=== PATIENT | female | born 1995 | race Caucasian/White ===

== ENCOUNTER 2019-08-11 09:48 | Emergency (ER) | payer MEDICAID, SELFPAY ==
[2019-08-11 09:54] VITALS: BP 123/72; PULSE 85; RESP 18; TEMP 36.6; O2SAT 99; BMI 23.6
--- NOTE | 2019-08-11 10:27 | ED_ITS ---
Entered by Zehra Wright, acting as scribe for Aristeo Mauricio DO HPI - SOB/Dyspnea General: Chief Complaint: Shortness of Breath/Dyspnea Stated Complaint: sob cold symptoms Time Seen by Provider: 08/11/19 10:02 Source: patient Mode of arrival: ambulatory Limitations: no limitations History of Present Illness: HPI Narrative: 24 yo f came to the er pov for sob, cough and cold. Onset was today. Pt states that she has had some chest pain due to the cough. Pt states that she has been having some sob. MD elicited complaint: shortness of breath and cough Onset (ago): day(s) (yesterday) Severity: mild Exacerbating factors: nothing Associated symptoms: Reports fever(s) and nausea; Deny abdominal pain, chest pain, orthopnea or vomiting Review of Systems Const: Reports: fever ENMT: Denies: throat pain, ear pain, nasal discharge or nasal congestion Card: Denies: chest pain or shortness of breath when lying down Resp: Reports: shortness of breath and non-productive cough; Denies: productive cough GI: Reports: nausea; Denies: abdominal pain or vomiting : Denies: flank pain, difficulty urinating, painful urination, urinary frequency or urinary urgency Skin/Breast: Denies: rash or itching PFSH ED PFSH: Statuses (acute, chronic, etc) shown below reflect problem list status as previously entered and may not be historically accurate Social History Smoking and tobacco status: current every day smoker Physical Exam Const: COMMON NORMALS: no apparent distress GENERAL APPEARANCE: cooperative and comfortable ORIENTATION/CONSCIOUSNESS: Yes awake, Yes oriented to person, Yes oriented to place and Yes oriented to time HENMT: COMMON NORMALS: normocephalic, head/scalp atraumatic, hearing grossly normal bilaterally, external ears normal, EAC's normal, TM's normal bilaterally, nasal mucous membranes and turbinates normal, moist oral mucous membranes and oropharynx normal HEAD & SCALP: normocephalic and atraumatic FACE & SINUS: sinus tenderness frontal NOSE: nasal mucous membranes and turbinates normal, mucous membranes and turbinates abnormal and nasal discharge clear EXTERNAL EAR: Yes external ears normal EXTERNAL AUDITORY CANAL: EAC's normal TYMPANIC MEMBRANE: TM's normal bilaterally Eye: COMMON NORMALS: PERRL, EOMs intact bilaterally, conjunctivae normal and no scleral icterus CONJUNCTIVA: Yes conjunctivae normal PUPIL: Yes PERRL Neck/C-Spine: COMMON NORMALS: full ROM, no lymphadenopathy, supple and no JVD Lymph: LYMPHATIC: no lymphadenopathy noted and no lymphedema noted Resp: COMMON NORMALS: normal respiratory effort, no retractions, no use of accessory muscles and clear to auscultation bilaterally AUSCULTATION: clear to auscultation bilaterally, rhonchi and wheezes throughout (mild) Cardio: COMMON NORMALS: no JVD, regular rate, regular rhythm and no murmurs RATE: regular rate RHYTHM: regular rhythm Extremity: COMMON NORMALS: normal to inspection, normal capillary refill, no clubbing, cyanosis or edema, no calf tenderness and no pedal edema Neuro: SENSORIUM/ORIENTATION: Yes oriented to person, Yes oriented to place and Yes oriented to time Skin: COMMON NORMALS: no rashes or lesions noted GENERAL SKIN EXAM: no rashes or lesions noted Course Vital Signs: Vital signs: Vital Signs Temperature 98 F 08/11/19 09:54 Pulse Rate 62 08/11/19 12:16 Respiratory Rate 16 08/11/19 12:16 Blood Pressure 116/72 08/11/19 12:16 Pulse Oximetry 100 08/11/19 12:16 MDM - SOB/Dyspnea Lab Data: Labs: Lab Results 08/11/19 08/11/19 08/11/19 Range/Units 11:10 11:15 11:46 WBC 4.6 (4.0-10.0) 10^3/ uL RBC 3.99 L (4.1-5.3) 10^6/u L Hgb 11.9 (11.5-15.3) g/dL Hct 34.9 L (37.0-47.0) % MCV 87.5 (81-99) fL MCH 29.8 (28.0-34.0) pg MCHC 34.1 (30.0-36.0) g/dL RDW 13.1 (12.1-15.1) % Plt Count 201 (130-400) 10^3/c mm MPV 11.9 H (7.4-10.4) fL Neut % (Auto) 62.1 % Lymph % (Auto) 26.3 % [place] % (Auto) 9.2 % Eos % (Auto) 1.8 % Baso % (Auto) 0.4 % Neut # (Auto) 2.8 (1.8-7.7) 10^3/u L Lymph # (Auto) 1.2 (0.8-4.8) 10^3/u L [place] # (Auto) 0.4 (0.2-0.9) 10^3/u L Eos # (Auto) 0.1 (0.0-0.8) 10^3/u L Baso # (Auto) 0.0 (0.0-0.1) 10^3/u L Nucleated RBC % (a uto) 0 % Nucleated RBCs # 0.0 /100WBC Sodium 138 (136-145) mmol/L Potassium 3.0 L (3.5-5.1) mmol/L Chloride 103 (98-107) mmol/L Carbon Dioxide 23 (22-29) mmol/L Anion Gap 15.0 (5-19) BUN 7 (6-20) mg/dL Creatinine 0.5 (0.5-0.9) mg/dL GFR Calculation 150.3 H (90-130) mL/min Glucose 100 (74-109) mg/dL Calcium 9.3 (8.6-10.0) mg/Dl Total Bilirubin 0.3 (0.15-1.2) mg/dL AST 12 (0-32) U/L ALT 8 (0-33) U/L Alkaline Phosphata se 71 (35-105) IU/L Total Protein 7.6 (6.6-8.7) g/dL Albumin 4.6 (3.5-5.2) g/dL Globulin 3.0 (1.3-4.6) g/dL Influenza Type A A g Negative (Negative) POC Influenza B Ag Negative (Negative) Imaging Data^: CXR: Radiologist's impression: [address] [address] XRay Report Signed Patient: Lexi Richmond [facility]#: [id number] : 1995Acct:[id number] Age/Sex: 24 / FADM Date: 08/11/19 Loc: ER Attending Dr: Ordering Physician: Aristeo Mauricio DO Date of Service: 08/11/19 Procedure(s): XR chest 1V portable [id number] Accession Number(s): [id number] Report Number: [id number] WS: [id number] Portable AP upright chest, 08/11/2019 Clinical Data: cough/dyspnea Comparison: PA and lateral chest, 02/13/2010. Findings: No nodules, masses or effusions are seen. The heart is normal. The pulmonary vascularity is not increased. No pneumonia or pneumothorax is seen. XR/XR chest 1V portable [id number] Impression: Negative chest. Dictated By:Ana Pierre MD Discharge Plan Discharge Patient Disposition: Home, Self-Care Clinical Impression: Asthma with exacerbation, Sinusitis, acute frontal Condition: Stable Prescriptions: New prednisone 10 mg tablets,dose pack See Rx Instructions .ROUTE .COMPLEX Qty: 21 RF: 0 cefdinir 300 mg capsule 300 mg PO BID 10 Days Qty: 20 RF: 0 albuterol sulfate 90 mcg/actuation HFA aerosol inhaler 2 inh INHALATION Q4H PRN (Reason: shortness of breath or wheezing) Qty: 18 RF: 0 No Action Aleve 220 mg Tablet 440 mg PO DAILY PRN (Reason: Pain) RF: 0 Childrens Zarbees Cough&Cold 10 ml PO BID RF: 0 Discharge Orders: Discharge Order (Routine); Ordered 08/11/19 Ordered By: Aristeo Mauricio Referrals: Kaden Rivas DO [Primary Care Provider] - Discharge Date/Time: 08/11/19 12:17 Coding Level of Care Code ED Record Searcher for Chg Fwd Exam Problem Focused The documentation recorded by the Kyle reed Stephanie Lyn, accurately reflects the service I personally performed and the decisions made by Hang stanford Curtis L, DO Aug 11, 2019 09:48
--- NOTE | 2019-08-11 10:57 | XR_ITS ---
WS: [id number] Portable AP upright chest, 08/11/2019 Clinical Data: cough/dyspnea Comparison: PA and lateral chest, 02/13/2010. Findings: No nodules, masses or effusions are seen. The heart is normal. The pulmonary vascularity is not increased. No pneumonia or pneumothorax is seen. XR/XR chest 1V portable [id number] Impression: Negative chest.
[2019-08-11] MEDS: sodium chloride 0.9% 1,000 ML 999 ML IV (11:13)
[2019-08-11 11:22] LABS: Basophils % 0.4 %; Eosinophils # 0.1 10^3/uL (0.0-0.8); Eosinophils % 1.8 %; Hematocrit 34.9 % (37.0-47.0); Hemoglobin 11.9 g/dL (11.5-15.3); Lymphocytes # 1.2 10^3/uL (0.8-4.8); Lymphocytes % 26.3 %; Mean Corpuscular HGB Conc 34.1 g/dL (30.0-36.0); Mean Corpuscular Hemoglobin 29.8 pg (28.0-34.0); Mean Corpuscular Volume 87.5 fL (81-99); Mean Platelet Volume 11.9 fL (7.4-10.4); Monocytes # 0.4 10^3/uL (0.2-0.9); Monocytes % 9.2 %; Neutrophils # 2.8 10^3/uL (1.8-7.7); Neutrophils % 62.1 %; Nucleated Red Blood Cells % 0 %; Platelet Count 201 10^3/cmm (130-400); Red Blood Count 3.99 10^6/uL (4.1-5.3); Red Cell Distribution Width 13.1 % (12.1-15.1); White Blood Count 4.6 10^3/uL (4.0-10.0)
--- NOTE | 2019-08-11 11:34 | PC.NURSE ---
gave pt phone to use, pt resting in bed comfortably and states no further needs at this time.
[2019-08-11 11:52] LABS: Influenza A by IFA Negative (Negative); Influenza B by IFA Negative (Negative)
[2019-08-11 12:14] LABS: Alanine Aminotransferase 8 U/L (0-33); Albumin Level 4.6 g/dL (3.5-5.2); Alkaline Phosphatase 71 IU/L (35-105); Aspartate Amino Transferase 12 U/L (0-32); Blood Urea Nitrogen 7 mg/dL (6-20); Calcium 9.3 mg/Dl (8.6-10.0); Carbon Dioxide 23 mmol/L (22-29); Chloride 103 mmol/L (98-107); Glomerular Filtration Rate 150.3 mL/min (90-130); Glucose 100 mg/dL (74-109); Sodium 138 mmol/L (136-145); Total Bilirubin 0.3 mg/dL (0.15-1.2); Total Protein 7.6 g/dL (6.6-8.7)
[2019-08-11 12:16] VITALS: BP 116/72; PULSE 62; RESP 16; O2SAT 100
== END 2019-08-11 12:17 | disposition home or self-care (01) ==
PROVIDERS: Emergency Provider Family Medicine; Family Provider Electrodiagnostic Medicine; PCP Electrodiagnostic Medicine
DX: J45.901 Unspecified asthma with (acute) exacerbation (principal); J01.10 Acute frontal sinusitis, unspecified; F17.210 Nicotine dependence, cigarettes, uncomplicated
CPT/HCPCS: 36415; 71045; 80053; 85025; 87804; 96360; 96374; 99281; J2930; J7030

== ENCOUNTER 2019-09-09 08:56 | Emergency (ER) | payer MEDICAID, SELFPAY ==
[2019-09-09 09:02] VITALS: BP 99/74; PULSE 89; RESP 16; TEMP 36.8; O2SAT 100; BMI 24.3
--- NOTE | 2019-09-09 09:04 | W.ED.SKABFB ---
HPI - Skin/Abscess/Foreign Bdy General: Chief complaint: Skin/Abscess/Foreign Body Stated complaint: BLISTERS ALL OVER Time Seen by Provider: 09/09/19 09:03 History of Present Illness: HPI narrative: Patient comes in today for complaints of multiple dry crusting lesions spreading over her body. Patient reports sleeping with her boyfriend who also had similar lesions. Patient appears well. Patient appears in no acute distress. Review of Systems General: Reports: 10 or more systems reviewed and unremarkable except in HPI and below Skin/Breast: Reports: new lesion PFSH ED PFSH: Statuses (acute, chronic, etc) shown below reflect problem list status as previously entered and may not be historically accurate Social History Smoking and tobacco status: current every day smoker Physical Exam Const: COMMON NORMALS: no apparent distress and oriented x3 GENERAL APPEARANCE: cooperative HENMT: COMMON NORMALS: normocephalic, external ears normal, EAC's normal, TM's normal bilaterally and external nose normal HEAD & SCALP: normal to inspection and normocephalic FACE & SINUS: normal facial exam NOSE: external nose normal GENERAL EAR: hearing not grossly impaired EXTERNAL EAR: Yes external ears normal EXTERNAL AUDITORY CANAL: EAC's normal TYMPANIC MEMBRANE: TM's normal bilaterally MOUTH: oral and palatal mucosa normal THROAT: posterior oropharynx normal Eye: COMMON NORMALS: PERRL and EOMs intact bilaterally PUPIL: Yes PERRL Neck/C-Spine: COMMON NORMALS: full ROM and no lymphadenopathy Lymph: LYMPHATIC: no lymphedema noted Chest: COMMONS NORMALS: inspection of chest normal and palpation of chest normal Resp: COMMON NORMALS: normal respiratory effort and clear to auscultation bilaterally AUSCULTATION: clear to auscultation bilaterally Cardio: COMMON NORMALS: regular rate and regular rhythm RATE: regular rate RHYTHM: regular rhythm GI: COMMON NORMALS: normal to inspection, nondistended, normoactive bowel sounds and non-tender : COMMON NORMALS: Yes no CVA tenderness BLADDER/KIDNEY EXAM: Yes no CVA tenderness Back/Pelvis: COMMON NORMALS: no CVA tenderness and thoracic and lumbar spine normal to inspection Extremity: COMMON NORMALS: normal to inspection GENERAL: No edema Neuro: COMMON NORMALS: oriented x3, moves all extremities and no focal motor deficits Psych: COMMON NORMALS: mental status grossly normal and cooperative Skin: LESIONS: lesion noted (multiple dry crusting lesion spread across body) Course Vital Signs: Vital signs: Vital Signs Temperature 98.2 F 09/09/19 09:02 Pulse Rate 89 09/09/19 09:02 Respiratory Rate 16 09/09/19 09:02 Blood Pressure 99/74 09/09/19 09:02 Pulse Oximetry 100 09/09/19 09:02 MDM - Skin/Abscess/Foreign Bdy MDM Narrative: Medical decision making narrative: Patient presents with multiple skin lesions and concern for staph. On exam we note multiple lesions to the arms and legs face and groin area. Lesions are crusting with minimal surrounding area of erythema. Differential diagnosis includes neurodermatitis, impetigo, cellulitis, abscess. Reviewed exam with patient recommended treatment for impetigo with clindamycin and mupirocin ointment. Discussed further treatment and need for follow-up. Patient reports understanding and agreed to plan. Discharge Plan Discharge Patient Disposition: Home, Self-Care Clinical Impression: Impetigo Condition: Stable Prescriptions: New clindamycin HCl 150 mg capsule 150 mg PO TID 10 Days Qty: 30 RF: 0 mupirocin 2 % ointment 1 applic TOPICAL BID Qty: 22 RF: 1 No Action Aleve 220 mg Tablet 440 mg PO DAILY PRN (Reason: Pain) RF: 0 Childrens Zarbees Cough&Cold 10 ml PO BID RF: 0 prednisone 10 mg tablets,dose pack See Rx Instructions .ROUTE .COMPLEX Qty: 21 RF: 0 albuterol sulfate 90 mcg/actuation HFA aerosol inhaler 2 inh INHALATION Q4H PRN (Reason: shortness of breath or wheezing) Qty: 18 RF: 0 Discharge Orders: Discharge Order (Routine); Ordered 09/09/19 Ordered By: Ashok Rios Referrals: Kaden Rivas DO [Primary Care Provider] - Discharge Diet: Usual diet Discharge Activity: Resume usual activity Patient Instructions: Impetigo (ED) Activity Restrictions/Additional Instructions: Good handwashing Avoid picking at lesions Follow-up in one week as needed with primary care Return to ER for high fever, or new concerns Coding Level of Care Code ED Hr Representative for Bala Jaffe
--- NOTE | 2019-09-09 09:18 | PC.NURSE ---
Pt presents to the ER for widespread generalized lesions. Pt states the areas have been itching and burning with yellow drainage. Patient states these have been present for about a week now. Patient worries that these may be staph or herpes. States she just found out her partner has herpes 5 days ago.
== END 2019-09-09 09:24 | disposition home or self-care (01) ==
PROVIDERS: Emergency Provider Nurse Practitioner Family; Family Provider Electrodiagnostic Medicine; PCP Electrodiagnostic Medicine
DX: L01.00 Impetigo, unspecified (principal); F17.210 Nicotine dependence, cigarettes, uncomplicated
CPT/HCPCS: 99281; 99282

== ENCOUNTER 2019-10-09 14:55 | Emergency (ER) | payer MEDICAID, SELFPAY ==
[2019-10-09 15:07] VITALS: BP 108/71; PULSE 100; RESP 16; TEMP 36.6; O2SAT 99; BMI 22.8
--- NOTE | 2019-10-09 15:15 | ED_ITS ---
Entered by Bruce Durán, acting as scribe for Aristeo Mauricio DO Oct 09, 2019 14:55 HPI - Female Genitourinary General: Chief complaint: Urogenital-Female Stated complaint: THINKS SHE HAS HERPES Time Seen by Provider: 10/09/19 15:15 History of Present Illness: HPI Narrative: 24 yo female presents with a possible STD. Pt thinks that she might have herpes. Pt states that she has had an outbreak on her vagina. Pt states that she slept with her harley father and he did not tell her he had herpes. Pt states that she has never had a herpes or an outbreak before. Pt states that she has had pain, fever, body aches, vomiting and diarrhea. Pt states that she has burning with urination. Pertinent past history: STI/STD Severity: moderate Associated symptoms: Reports vaginal discharge; Deny abdominal pain, headache(s), nausea or syncope Date of Last Menstrual Period: 10/05/19 Review of Systems Const: Reports: fever, chills, body aches, change in appetite, fatigue and malaise Eyes: Denies: change in vision or blurry vision ENMT: Denies: throat pain, oral sores/lesions, dental pain, nasal discharge or nasal congestion Card: Denies: chest pain, palpitations, irregular heart rhythm, edema, syncope, shortness of breath on exertion, shortness of breath when lying down or leg pain with exertion Resp: Denies: shortness of breath, productive cough, non-productive cough or wheezing GI: Denies: abdominal pain, nausea, vomiting, vomiting blood, coffee grounds in vomit, difficulty swallowing, heartburn/indigestion, diarrhea, constipation, cramping, blood in stool or black tarry stool : Reports: painful urination, vaginal discharge and pelvic pain; Denies: flank pain, urinary frequency, urinary urgency, urinary incontinence or blood in urine Musc: Denies: neck pain, back pain, extremity pain, extremity swelling, joint pain or joint swelling Skin/Breast: Denies: rash, itching or redness Neuro: Denies: headache, numbness in extremities, weakness in extremities, changes in sensation, lack of coordination, difficulty walking, frequent falls, dizziness, vertigo or confusion Psych: Denies: anxiety, depression, loss of interest, visual hallucinations, auditory hallucinations, suicidal ideation or homicidal ideation Endo: Denies: excessive urination, excessive thirst, tired all the time or cold intolerance [place]/Lymph: Denies: easy bruising, easy bleeding, petechiae, enlarged lymph nodes or tender lymph nodes PFSH ED PFSH: Medical History (Updated 10/09/19 @ 16:31 by Aristeo Mauricio DO) Anemia Headache STD (female) UTI (urinary tract infection) Surgical History History of tubal ligation Social History Smoking and tobacco status: current every day smoker Alcohol intake: current History of recent travel: No Female Reproductive History: Date of last menstrual period: 10/05/19 Physical Exam Const: COMMON NORMALS: average body habitus, oriented x3 and alert GENERAL APPEARANCE: cooperative, comfortable, well kempt and well developed NUTRITIONAL APPEARANCE: obese ORIENTATION/CONSCIOUSNESS: Yes awake, Yes oriented to person and Yes oriented to place HENMT: COMMON NORMALS: normocephalic, head/scalp atraumatic, EAC's normal, TM's normal bilaterally, external nose normal, moist oral mucous membranes and oropharynx normal HEAD & SCALP: normocephalic and atraumatic NOSE: external nose normal EXTERNAL AUDITORY CANAL: EAC's normal TYMPANIC MEMBRANE: TM's normal bilaterally MOUTH: oral and palatal mucosa normal, lip normal and tongue normal THROAT: posterior oropharynx normal and tonsils normal Eye: COMMON NORMALS: PERRL, EOMs intact bilaterally, conjunctivae normal and no scleral icterus CONJUNCTIVA: Yes conjunctivae normal PUPIL: Yes PERRL Neck/C-Spine: COMMON NORMALS: full ROM, no lymphadenopathy, supple, no meningeal signs and thyroid normal THYROID: thyroid normal and asymmetrical Lymph: LYMPHATIC: no lymphadenopathy noted Resp: COMMON NORMALS: normal respiratory effort, no retractions, no use of accessory muscles and clear to auscultation bilaterally AUSCULTATION: clear to auscultation bilaterally Cardio: COMMON NORMALS: regular rate and regular rhythm RATE: regular rate RHYTHM: regular rhythm HEART SOUNDS: no murmurs GI: COMMON NORMALS: normal to inspection, nondistended, normoactive bowel sounds, soft to palpation and no hepatosplenomegaly PALPATION: Yes soft and Yes no hepatosplenomegaly : COMMON NORMALS: Yes no CVA tenderness BLADDER/KIDNEY EXAM: Yes no CVA tenderness EXTERNAL FEMALE EXAM: Yes other (Multiple cratered eroded lesions typical for genital herpes on the labia minora and labia majora and perineum. Most prominent one was swabbed for DNA for herpes. There is no vesicle) SPECULUM EXAM - VAGINA: Yes vaginal discharge Vaginal discharge present: other (Purulent purulent cervical discharge) SPECULUM EXAM - CERVIX: Yes cervical tenderness BIMANUAL EXAM - VAGINA & UTERUS: Yes cervical motion tenderness and Yes cervical tenderness BIMANUAL EXAM - ADNEXA, OTHER: Yes normal adnexae OB/EXTERNAL & SPECULUM: herpetic lesions Back/Pelvis: COMMON NORMALS: no CVA tenderness LUMBAR SPINE/LOWER BACK: Yes normal to inspection Extremity: COMMON NORMALS: no clubbing, cyanosis or edema, no calf tenderness and no pedal edema Neuro: COMMON NORMALS: oriented x3 SENSORIUM/ORIENTATION: Yes alert, Yes oriented to person and Yes oriented to place MENINGEAL SIGNS: Yes no meningeal signs Psych: APPEARANCE: Yes well kempt Skin: COMMON NORMALS: no rashes or lesions noted and skin turgor normal GENERAL SKIN EXAM: no rashes or lesions noted and turgor normal Course ED course: Discussed clinical findings with the exam patient. Based on her clinical exam findings I recommend that we treat for GC chlamydia for PID and will also recommend starting acyclovir pending results. Vital Signs: Vital signs: Vital Signs Temperature 98 F 10/09/19 15:07 Pulse Rate 77 10/09/19 17:28 Respiratory Rate 18 10/09/19 17:28 Blood Pressure 112/74 10/09/19 17:28 Pulse Oximetry 98 10/09/19 17:28 MDM - Female Lab Data: Labs: Lab Results 10/09/19 10/09/19 10/09/19 Range/Units 15:34 16:00 16:00 WBC 5.4 (4.0-10.0) 10^3/ uL RBC 4.27 (4.1-5.3) 10^6/u L Hgb 12.1 (11.5-15.3) g/dL Hct 37.6 (37.0-47.0) % MCV 88.1 (81-99) fL MCH 28.3 (28.0-34.0) pg MCHC 32.2 (30.0-36.0) g/dL RDW 14.1 (12.1-15.1) % Plt Count 205 (130-400) 10^3/c mm MPV 11.5 H (7.4-10.4) fL Neut % (Auto) 68.0 % Lymph % (Auto) 17.9 % [place] % (Auto) 9.2 % Eos % (Auto) 4.1 % Baso % (Auto) 0.4 % Neut # (Auto) 3.6 (1.8-7.7) 10^3/u L Lymph # (Auto) 1.0 (0.8-4.8) 10^3/u L [place] # (Auto) 0.5 (0.2-0.9) 10^3/u L Eos # (Auto) 0.2 (0.0-0.8) 10^3/u L Baso # (Auto) 0.0 (0.0-0.1) 10^3/u L Nucleated RBC % (a uto) 0 % Nucleated RBCs # 0.0 /100WBC Urine Color Yellow (Yellow) Urine Appearance Hazy A (CLEAR) Urine pH 6 (5-7) Ur Specific Gravit y 1.020 (1.005-1.030) Urine Protein Neg (Negative) Urine Glucose (UA) Norm (Normal) Urine Ketones Negative (Negative) Urine Blood Trace H (Negative) Urine Nitrate Negative (Negative) Urine Bilirubin Neg (NEGATIVE) Urine Urobilinogen Norm (Negative) mg/dL Ur Leukocyte Sherron ase Negative (Negative) Urine RBC 5-10 H (0-2) /hpf Urine WBC None (0-5) /hpf Ur Squamous Epith Cells 10-15 H (0-5) Urine Bacteria 1+ H (NONE) Urine Mucus 4+ Urine HCG, Qual Negative (Negative) Discharge Plan Discharge Patient Disposition: Home, Self-Care Clinical Impression: Acute PID (pelvic inflammatory disease), Genital herpes Condition: Stable Prescriptions: New doxycycline hyclate 100 mg capsule 100 mg PO Q12H 14 Days Qty: 28 RF: 0 Valtrex 1 gram tablet 1,000 mg PO BID 7 Days Qty: 14 RF: 0 lidocaine 5 % cream 1 applic TOPICAL QID PRN (Reason: pain) Qty: 45 RF: 0 No Action Aleve 220 mg Tablet 440 mg PO BID PRN (Reason: Pain) RF: 0 Child Multivitamins Tablet,Chewable 1 tab PO DAILY RF: 0 Discharge Orders: Discharge Order (Routine); Ordered 10/09/19 Ordered By: Aristeo Mauricio Referrals: Kaden Rivas DO [Primary Care Provider] - Discharge Diet: Usual diet Discharge Activity: Increase activity as tolerated Activity Restrictions/Additional Instructions: Follow-up with your primary care doctor on results. Discharge Date/Time: 10/09/19 17:29 Coding Level of Care Code ED Hospital Director for Chg Fwd Exam Comprehensive The documentation recorded by the Luis Armando reed Kialy, accurately reflects the service I personally performed and the decisions made by Hang stanford Curtis L, DO Oct 09, 2019 14:55
[2019-10-09 15:41] LABS: Basophils % 0.4 %; Eosinophils # 0.2 10^3/uL (0.0-0.8); Eosinophils % 4.1 %; Hematocrit 37.6 % (37.0-47.0); Hemoglobin 12.1 g/dL (11.5-15.3); Lymphocytes % 17.9 %; Mean Corpuscular HGB Conc 32.2 g/dL (30.0-36.0); Mean Corpuscular Hemoglobin 28.3 pg (28.0-34.0); Mean Corpuscular Volume 88.1 fL (81-99); Mean Platelet Volume 11.5 fL (7.4-10.4); Monocytes # 0.5 10^3/uL (0.2-0.9); Monocytes % 9.2 %; Neutrophils # 3.6 10^3/uL (1.8-7.7); Nucleated Red Blood Cells % 0 %; Platelet Count 205 10^3/cmm (130-400); Red Blood Count 4.27 10^6/uL (4.1-5.3); Red Cell Distribution Width 14.1 % (12.1-15.1); White Blood Count 5.4 10^3/uL (4.0-10.0)
[2019-10-09] MEDS: azithromycin 250 mg Tablet 1000 MG PO (16:40)
[2019-10-09 16:41] LABS: Add Urine Microscopic? YES; Bilirubin Urine Neg (NEGATIVE); Blood Urine Trace (Negative); Glucose Urine UA Norm (Normal); Ketones Urine Negative (Negative); Leukocyte Esterase Urine Negative (Negative); Nitrate Urine Negative (Negative); Protein Urine Neg (Negative); Urine Appearance Hazy (CLEAR); Urine Color Yellow (Yellow); Urobilinogen Urine Norm (Negative); pH Urine 6 (5-7)
[2019-10-09] MEDS: cefTRIAXone 250 mg SDV 500 MG IM (16:41)
[2019-10-09] MEDS: lidocaine 1% INJ 20 mL IM (16:45)
[2019-10-09 16:56] LABS: Add Urine Culture? No; Bacteria Urine 1+; Mucus Urine 4+
[2019-10-09 17:28] VITALS: BP 112/74; PULSE 77; RESP 18; O2SAT 98
--- NOTE | 2019-10-10 18:16 | PC.NURSE ---
LAB CALLED STATES UNABLE TO GET RESULTS FROM VAGINAL SWABS AND URINE TO OLD TO USE TO DO TEST
== END 2019-10-09 17:29 | disposition home or self-care (01) ==
PROVIDERS: Emergency Provider Family Medicine; Family Provider Electrodiagnostic Medicine; PCP Electrodiagnostic Medicine
DX: A60.00 Herpesviral infection of urogenital system, unspecified (principal); N73.0 Acute parametritis and pelvic cellulitis; E66.9 Obesity, unspecified; Z68.22 Body mass index [BMI] 22.0-22.9, adult; F17.200 Nicotine dependence, unspecified, uncomplicated
CPT/HCPCS: 12345; 36415; 81001; 81025; 85025; 87210; 87491; 87530; 87591; 87661; 96372; 99283; J0696; J2001; Q0144

== ENCOUNTER 2020-03-27 00:24 | Emergency (ER) | payer MEDICAID, SELFPAY ==
[2020-03-27 00:35] VITALS: BP 132/84; PULSE 103; RESP 18; TEMP 36.8; O2SAT 98; BMI 24.4
--- NOTE | 2020-03-27 00:43 | ED_ITS ---
HPI - Dental/Oral General: Chief complaint: Dental/Oral Stated complaint: mouth pain/ swelling/ white spots Time Seen by Provider: 03/27/20 00:42 History of Present Illness: HPI Narrative: Patient is a 24-year-old female who comes to the ED with dental pain. Pain started approximately 3 days ago. Dental pain is located on tooth #32. Patient says it starting to cause lower jaw pain and some facial swelling as well. She rates pain a 9 out of 10. Patient says she has a dentist she is going to call tomorrow morning. Associated symptoms: Denies fever(s) or odynophagia Review of Systems Const: Denies: fever(s), chills or fatigue Eyes: Denies: change in vision or eye discomfort ENMT: Reports: dental pain; Denies: throat pain, odynophagia, nasal discharge or nasal congestion Card: Denies: chest pain, palpitations, edema, swelling of feet/ankles, dyspnea on exertion or orthopnea Resp: Denies: dyspnea, productive cough or non-productive cough GI: Denies: abdominal pain, nausea, vomiting, diarrhea, constipation or hematochezia : Denies: flank pain, dysuria or hematuria Musc: Denies: neck pain, back pain or extremity swelling Skin/Breast: Denies: rash or new lesions Neuro: Denies: headache(s), numbness in extremities or weakness in extremities PFSH ED PFSH: Medical History Anemia Headache STD (female) UTI (urinary tract infection) Surgical History History of tubal ligation Family History Denies family history of Anesthesia complication Bleeding disorder Social History Smoking and tobacco status: current every day smoker Alcohol intake: current History of recent travel: No Female Reproductive History: Date of last menstrual period: 10/05/19 Physical Exam Const: COMMON NORMALS: no acute distress, patient oriented x3, healthy appearing and alert GENERAL APPEARANCE: cooperative; not comfortable (Patient appears to be in some pain due to dental issue.) HENMT: COMMON NORMALS: normocephalic HEAD & SCALP: normocephalic MOUTH: Normal oral and palatal mucosa present TEETH & GINGIVA: Yes abnormal tooth and associated gingiva (Tooth #32 cavity and there is some surrounding gingival edema.) and Yes caries (Tooth #32) THROAT: posterior oropharynx normal and uvula midline Eye: COMMON NORMALS: Equal, round and reactive pupils present PUPIL: Yes Equal, round and reactive pupils present Neck/C-Spine: COMMON NORMALS: supple GENERAL: Yes normal visual inspection Resp: COMMON NORMALS: normal respiratory effort, No retractions, No use of accessory muscles and clear to auscultation bilaterally AUSCULTATION: clear to auscultation bilaterally Cardio: COMMON NORMALS: regular rate, regular rhythm, S1 normal heart sound present, S2 normal heart sound present, No gallops present (Cardio), No clicks present (Cardio), No murmurs present (Cardio) and Peripheral pulses 2+ throughout RATE: regular rate RHYTHM: regular rhythm HEART SOUNDS: S1 normal heart sound present and S2 normal heart sound present PERIPHERAL PULSES: Peripheral pulses 2+ throughout GI: COMMON NORMALS: Normal to inspection, nondistended, normoactive bowel sounds present, Soft to palpation, non-tender and no masses PALPATION: Yes Soft to palpation : COMMON NORMALS: Yes no CVA tenderness BLADDER/KIDNEY EXAM: Yes no CVA tenderness Back/Pelvis: COMMON NORMALS: no CVA tenderness Extremity: COMMON NORMALS: normal to inspection Neuro: COMMON NORMALS: patient oriented x3 and moves all extremities SENSORIUM/ORIENTATION: Yes alert Skin: COMMON NORMALS: no rashes or lesions noted GENERAL SKIN EXAM: no rashes or lesions noted and dry skin Course Vital Signs: Vital signs: Vital Signs Temperature 98.3 F 03/27/20 00:35 Pulse Rate 103 H 03/27/20 00:35 Respiratory Rate 18 03/27/20 00:35 Blood Pressure 132/84 03/27/20 00:35 Pulse Oximetry 98 03/27/20 00:35 MDM - Dental/Oral MDM Narrative: Medical decision making narrative: Patient is a 24-year-old female comes to the ED with dental pain. Physical exam showed dental caries with some gingival edema around tooth #32. Patient was given a dose of hydrocodone for pain here in the ED and also given a dose of clindamycin. Patient was discharged with a prescription for clindamycin and ibuprofen 800 mg. She was told to contact dentist tomorrow morning to set up an appointment. Patient understood and agreed with plan. Discharge Plan Discharge Patient Disposition: Home Clinical Impression: Pain due to dental caries Condition: Stable Prescriptions: New clindamycin HCl 150 mg capsule 300 mg PO QID 7 Days Qty: 56 RF: 0 ibuprofen 800 mg tablet 800 mg PO Q8H PRN (Reason: pain) Qty: 30 RF: 0 No Action Aleve 220 mg Tablet 440 mg PO BID PRN (Reason: Pain) RF: 0 Child Multivitamins Tablet,Chewable 1 tab PO DAILY RF: 0 lidocaine 5 % cream 1 applic TOPICAL QID PRN (Reason: pain) Qty: 45 RF: 0 Discharge Orders: Discharge Order (Routine); Ordered 03/27/20 Ordered By: Otto Galicia Referrals: Kaden Rivas, [Primary Care Provider] - Discharge Diet: Regular Discharge Activity: Resume usual activity Patient Instructions: Dental Caries (ED), Toothache (ED) Activity Restrictions/Additional Instructions: Call dentist tomorrow morning to set up an appointment for further evaluation. Take medications as prescribed. Return to the ER or your medical provider if condition worsens. Please read and understand discharge instructions. If any questions, please ask. Coding Level of Care Code ED Sas Statistical Programmer for Bala Fwpushpa Exam Comprehensive
[2020-03-27] MEDS: clindamycin 150 mg Capsule 300 MG PO (01:14)
[2020-03-27] MEDS: HYDROcodone-acetaminophen 7.5-325 mg Tablet 1 TAB PO (01:14)
[2020-03-27 01:28] VITALS: BP 138/82; PULSE 72; RESP 16; TEMP 36.9; O2SAT 99
== END 2020-03-27 01:29 | disposition home or self-care (01) ==
PROVIDERS: Emergency Provider Physician Assistant; PCP Electrodiagnostic Medicine
DX: K02.9 Dental caries, unspecified (principal); F17.210 Nicotine dependence, cigarettes, uncomplicated
CPT/HCPCS: 12345; 99281; 99282; 99283

== ENCOUNTER 2020-05-08 11:06 | Emergency (ER) | payer MEDICAID, SELFPAY ==
[2020-05-08 11:37] VITALS: BP 119/77; PULSE 85; RESP 18; TEMP 36.7; O2SAT 99; BMI 25.9
[2020-05-08 11:43] VITALS: RESP 18
--- NOTE | 2020-05-08 12:39 | XR_ITS ---
WS: [id number] XR sacrum coccyx min 2V 03912 REASON FOR EXAM: fall, coccyx pain FINDINGS: Normal sacrococcygeal alignment. No fracture identified. No mass or other abnormality noted. XR/XR sacrum coccyx min 2V 94427 IMPRESSION: No significant abnormality.
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
[2020-05-08] MEDS: ibuprofen 800 mg tablet PO (13:10)
[2020-05-08] MEDS: tetanus-dipt-pertussis 0.5 mL SDV IM (13:17)
== END 2020-05-08 13:37 | disposition home or self-care (01) ==
PROVIDERS: Emergency Provider Nurse Practitioner Family; PCP Electrodiagnostic Medicine
DX: M53.3 Sacrococcygeal disorders, not elsewhere classified (principal); S60.512A Abrasion of left hand, initial encounter; S60.511A Abrasion of right hand, initial encounter; F17.210 Nicotine dependence, cigarettes, uncomplicated; W03.XXXA Other fall on same level due to collision with another person, initial encounter; Z23 Encounter for immunization
CPT/HCPCS: 12345; 72220; 90471; 90715; 99282; 99283

== ENCOUNTER 2020-12-22 18:00 | Emergency (ER) | payer BC, MEDICAID, SELFPAY ==
[2020-12-22 18:30] VITALS: BP 111/77; PULSE 67; RESP 14; TEMP 36.9; O2SAT 92; BMI 25.0
[2020-12-22] MEDS: ketorolac 30 mg/mL INJ IM (19:33)
[2020-12-22] MEDS: orphenadrine 30 mg/mL Inj 2 mL 60 MG IM (19:34)
[2020-12-22 19:44] LABS: HCG Qualitative Urine. Negative (Negative)
[2020-12-22 20:08] LABS: Bilirubin Urine Neg (Negative); Blood Urine Neg (Negative); Glucose Urine UA Norm (Normal); Ketones Urine Negative (Negative); Leukocyte Esterase Urine Negative (Negative); Nitrate Urine Negative (Negative); Protein Urine Neg (Negative); Sulfosalicylic Acid Urine Negative (Negative); Urine Color Yellow (Yellow); Urobilinogen Urine 1 mg/dL (Negative); pH Urine 8 (5-7)
[2020-12-22 20:09] LABS: Add Urine Microscopic? YES
[2020-12-22 20:10] LABS: Add Urine Culture? No; Amorphous Sediment Urine 2+ /hpf; Bacteria Urine 1+ /hpf; RBC Urine 0-4 /hpf (0-2); WBC Urine 0-4 /hpf (0-5)
--- NOTE | 2020-12-22 20:29 | W.ED.BACK ---
HPI - Back Pain/Injury General: Chief Complaint: Back Pain/Injury Stated Complaint: back pain, numbness Time Seen by Provider: 12/22/20 18:44 History of Present Illness: HPI Narrative: The patient is a 25-year-old female who comes to the ER complaining of lower right back pain. Worse with movement and better with rest. She says she has pain when she tries to stand straight up. Also history of breaking her tailbone a year ago which still causes her pain. She has no injury to speak of. She did have kids visiting this weekend and was holding them on her right side which she thinks could have possibly caused this injury. She says her has felt knots in her low back and has been rubbing them out which helps with her pain. She denies weakness in the extremities, denies anesthesia, has full range of motion of extremities. No saddle anesthesia or bladder or bowel incontinence. Also denies radicular pain. MD elicited complaint: back pain Associated symptoms: Deny abdominal pain, difficulty walking, fatigue or urinary urgency Review of Systems General: Reports: 10 or more systems reviewed and unremarkable except in HPI and below Const: Denies: fatigue Eyes: Denies: change in vision, blurry vision or eye redness ENMT: Denies: throat pain, swelling of lips/tongue, ear or mastoid pain or nasal congestion Card: Denies: chest pain, palpitations, irregular heart rhythm, edema, dyspnea on exertion or orthopnea Resp: Denies: dyspnea, productive cough or non-productive cough GI: Denies: abdominal pain, diarrhea or GI cramping : Denies: flank pain, difficulty voiding, urinary frequency or urinary urgency Musc: Reports: back pain; Denies: neck pain, extremity pain, joint pain, joint redness, limited range of motion or muscle weakness Skin/Breast: Denies: rash, pruritus, erythema, skin pain or skin tenderness Neuro: Denies: headache(s), numbness in extremities, weakness in extremities, sensory changes, difficulty walking, dizziness, confusion or Slurred speech present Psych: Denies: anxiety or depression Endo: Denies: polyuria All/Imm: Denies: urticaria, throat swelling or tongue swelling [facility] ED PFSH: Medical History (Updated 12/22/20 @ 20:39 by Vinayak Blanco MD) Anemia Headache STD (female) UTI (urinary tract infection) Surgical History History of tubal ligation Family History Denies family history of Anesthesia complication Bleeding disorder Social History Smoking and tobacco status: current every day smoker Alcohol intake: current History of recent travel: No Female Reproductive History: Date of last menstrual period: 04/15/20 Physical Exam Const: COMMON NORMALS: no acute distress, average body habitus, patient oriented x3, no limitations, healthy appearing, alert and well nourished GENERAL APPEARANCE: cooperative, comfortable, well kempt and well developed ORIENTATION/CONSCIOUSNESS: Yes awake, Yes oriented to person, Yes oriented to place and Yes oriented to time HENMT: COMMON NORMALS: normocephalic, external ears normal and Normal external nose present HEAD & SCALP: normal to inspection and normocephalic NOSE: Normal external nose present EXTERNAL EAR: Yes external ears normal MOUTH: Normal oral and palatal mucosa present THROAT: posterior oropharynx normal Eye: COMMON NORMALS: Equal, round and reactive pupils present and EOMs intact bilaterally GENERAL EYE: appearance normal, both eyes and all related structures PUPIL: Yes Equal, round and reactive pupils present Neck/C-Spine: COMMON NORMALS: full ROM, no lymphadenopathy, no meningeal signs and no JVD GENERAL: Yes normal visual inspection Lymph: LYMPHATIC: no lymphadenopathy noted Chest: COMMONS NORMALS: normal inspection of the chest and normal palpation of entire chest wall Resp: COMMON NORMALS: normal respiratory effort, No retractions, No use of accessory muscles, clear to auscultation bilaterally and percussion normal EFFORT & INSPECTION: Yes able to speak in complete sentences AUSCULTATION: clear to auscultation bilaterally PERCUSSION: percussion normal Cardio: COMMON NORMALS: no JVD, regular rate, regular rhythm, S1 normal heart sound present, S2 normal heart sound present and Peripheral pulses 2+ throughout RATE: regular rate RHYTHM: regular rhythm HEART SOUNDS: S1 normal heart sound present and S2 normal heart sound present PERIPHERAL PULSES: Peripheral pulses 2+ throughout GI: COMMON NORMALS: Normal to inspection, nondistended, normoactive bowel sounds present, Soft to palpation, non-tender and no masses INSPECTION: Yes normal to inspection PALPATION: Yes Soft to palpation : COMMON NORMALS: Yes no CVA tenderness BLADDER/KIDNEY EXAM: Yes no CVA tenderness Back/Pelvis: COMMON NORMALS: no CVA tenderness, thoracic and lumbar spine normal to inspection, no thoracic nor lumbar tenderness and thoraco-lumbar ROM normal OTHER: Mild tenderness to lumbar paraspinal musculature on the right. Likely muscle strain or spasm. Extremity: COMMON NORMALS: normal to inspection, full ROM, capillary refill normal, no joint enlargement and no pedal edema GENERAL: Yes normal exam except as noted Neuro: COMMON NORMALS: patient oriented x3, CN's II-XII intact bilaterally, moves all extremities, no focal motor deficits, no sensory deficits noted and gait normal SENSORIUM/ORIENTATION: Yes alert, Yes oriented to person, Yes oriented to place and Yes oriented to time MENINGEAL SIGNS: Yes no meningeal signs Psych: COMMON NORMALS: mental status grossly normal, Normal thought process present, cooperative, normal affect and speech normal APPEARANCE: Yes well kempt ATTITUDE: Yes calm SPEECH: Yes normal speech THOUGHT PROCESS: Normal thought process present Skin: COMMON NORMALS: no rashes or lesions noted GENERAL SKIN EXAM: no rashes or lesions noted Course Vital Signs: Vital signs: Vital Signs Temperature 98.4 F 12/22/20 18:30 Pulse Rate 67 12/22/20 18:30 Respiratory Rate 14 12/22/20 18:30 Blood Pressure 111/77 12/22/20 18:30 Pulse Oximetry 92 12/22/20 18:30 MDM - Back Pain/Injury MDM Narrative: Medical decision making narrative: The patient likely has a muscle strain and spasm in her low back. She was given Norflex and Toradol which did improve her pain some. She says it still hurts when she tries to stand up straight. I discussed with her it would take several days to heal up to 2 weeks. Recommended following up with her primary care physician Thursday and possibly getting an MRI of her low back at that time. Return to the ER with worsening symptoms or bowel or bladder incontinence, numbness, weakness in extremity. She understands and will do so. Lab Data: Labs: Lab Results 12/22/20 12/22/20 Range/Units 19:30 19:30 HCG, Qual Negative (Negative) Urine Color Yellow (Yellow) Urine Appearance Sl cloudy A (CLEAR) Urine pH 8 H (5-7) Ur Specific Gravit y 1.010 (1.005-1.030) Urine Protein Neg (Negative) Urine Glucose (UA) Norm (Normal) Urine Ketones Negative (Negative) Urine Blood Neg (Negative) Urine Nitrate Negative (Negative) Urine Bilirubin Neg (Negative) Prot Sulfosalicyli c Acd Negative (Negative) Urine Urobilinogen 1 H (Negative) mg/dL Ur Leukocyte Sherron ase Negative (Negative) Urine RBC 0-4 H (0-2) /hpf Urine WBC 0-4 H (0-5) /hpf Ur Squamous Epith Cells 5-10 H (0-5) /hpf Amorphous Sediment 2+ /hpf Urine Bacteria 1+ H (NONE) /hpf Discharge Plan Discharge Patient Disposition: Home Clinical Impression: Strain of lumbar region Condition: Stable Prescriptions: New Macrobid 100 mg capsule 100 mg PO BID 5 Days Qty: 10 RF: 0 cyclobenzaprine 5 mg tablet 5 mg PO TID PRN (Reason: muscle spasm) Qty: 14 RF: 0 No Action ibuprofen 800 mg tablet 800 mg PO Q8H PRN (Reason: pain) Qty: 30 RF: 0 Child Multivitamins Tablet,Chewable 1 tab PO DAILY RF: 0 lidocaine 5 % cream 1 applic TOPICAL QID PRN (Reason: pain) Qty: 45 RF: 0 ibuprofen 800 mg tablet 800 mg PO TID PRN (Reason: pain) Qty: 30 RF: 0 Discharge Orders: Discharge ED (Routine); Ordered 12/22/20 Ordered By: Vinayak Blanco Referrals: Kaden Rivas DO [Primary Care Provider] - Discharge Diet: Advance as tolerated Discharge Activity: Resume usual activity Patient Instructions: Low Back Strain (ED), Core Strengthening Exercises (GEN), Opioid Safety Activity Restrictions/Additional Instructions: You likely have a strain and spasm to your low back muscles. Please take ibuprofen to help with your pain and use the muscle relaxer to help as well. It will make you sleepy so do not mix it with drugs, alcohol, nor operate machinery while using this medication including driving a car. Return to the ER with worsening symptoms such as weakness in your legs, numbness, or inability to control your bowel or bladder movements and accidentally urinating or passing a bowel movement. Follow-up with your primary care physician Thursday and get an MRI of your low back to check your discs. Return to the ER with worsening symptoms at any time. Coding Level of Care Code ED Electrical Mechanical Technician for Bala Fwd Exam Comprehensive
[2020-12-22] MEDS: nitrofurantoin SR (BID) 100 mg Capsule PO (20:51)
[2020-12-22 20:54] VITALS: BP 109/68; PULSE 66; RESP 16; TEMP 36.6; O2SAT 97
== END 2020-12-22 20:55 | disposition home or self-care (01) ==
PROVIDERS: Emergency Provider Family Medicine; PCP Electrodiagnostic Medicine
DX: S39.012A Strain of muscle, fascia and tendon of lower back, initial encounter (principal); F17.210 Nicotine dependence, cigarettes, uncomplicated; X58.XXXA Exposure to other specified factors, initial encounter
CPT/HCPCS: 81001; 81025; 96372; 99283; J1885; J2360

== ENCOUNTER 2020-12-26 23:26 | Emergency (ER) | payer BC, MEDICAID, SELFPAY ==
[2020-12-26 23:37] VITALS: BP 113/75; PULSE 88; RESP 18; TEMP 36.8; O2SAT 100; BMI 28.1
[2020-12-26 23:47] LABS: Glucose Point of Care 112 mg/dL (70-110)
--- NOTE | 2020-12-26 23:59 | ECG_ITS ---
[facility] Test Date: 2020-12-27 Pat Name: Lexi Richmond Department: Room: Gender: Female Architectural Draftsman: : 1995 Requested By: Andrey Singh Order Number: [id number] Alecia MD: Tyra Woodard M.D. Measurements Intervals [place] Rate: 92 P: 59 DC: 132 QRS: 86 QRSD: 98 T: 16 QT: 361 QTc: 448 Interpretive Statements SINUS RHYTHM NONSPECIFIC T-WAVE ABNORMALITY No previous ECG available for comparison Electronically Signed On 12-27-2020 15:41:40 CDT by Tyra Woodard M.D. [id number]
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
[2020-12-27 00:56] VITALS: BP 123/74; PULSE 90; RESP 18; O2SAT 100
[2020-12-27 01:04] LABS: Basophils % 0.5 %; Eosinophils # 0.2 10^3/uL (0.0-0.8); Eosinophils % 3.9 %; Hematocrit 35.8 % (37.0-47.0); Hemoglobin 12.1 g/dL (11.5-15.3); Lymphocytes # 2.1 10^3/uL (0.8-4.8); Lymphocytes % 35.1 %; Mean Corpuscular HGB Conc 33.8 g/dL (30.0-36.0); Mean Corpuscular Hemoglobin 30.7 pg (28.0-34.0); Mean Corpuscular Volume 90.9 fL (81-99); Monocytes # 0.5 10^3/uL (0.2-0.9); Monocytes % 8.9 %; Neutrophils # 2.99 10^3/uL (1.8-7.7); Neutrophils % 50.9 %; Nucleated Red Blood Cells % 0 %; Platelet Count 265 10^3/cmm (130-400); Red Blood Count 3.94 10^6/uL (4.1-5.3); Red Cell Distribution Width 13.7 % (12.1-15.1); White Blood Count 5.9 10^3/uL (4.0-10.0)
[2020-12-27 01:15] LABS: Alcohol Level 129 mg/dL (0-10); Anion Gap 14.3 (5-19); Blood Urea Nitrogen 8 mg/dL (6-20); Calcium 8.6 mg/dL (8.5-10.5); Carbon Dioxide 25 mmol/L (22-29); Chloride 108 mmol/L (98-107); Glomerular Filtration Rate 192.9 mL/min (90-130); Glucose 92 mg/dL (65-115); Osmolality Calculated 296 mOsm/kg (285-295); Potassium 3.3 mmol/L (3.5-5.1); Sodium 144 mmol/L (136-145)
[2020-12-27 02:06] VITALS: BP 128/63; PULSE 97; RESP 18; TEMP 36.6; O2SAT 99
== END 2020-12-27 02:09 | disposition home or self-care (01) ==
PROVIDERS: Emergency Provider Nurse Practitioner Family; PCP Electrodiagnostic Medicine
DX: E87.6 Hypokalemia (principal); F10.10 Alcohol abuse, uncomplicated; Y90.6 Blood alcohol level of 120-199 mg/100 ml; M51.27 Other intervertebral disc displacement, lumbosacral region; F17.210 Nicotine dependence, cigarettes, uncomplicated
CPT/HCPCS: 36416; 80048; 80307; 82962; 85025; 93005; 99283

== ENCOUNTER 2021-01-27 00:17 | Emergency (ER) | payer BC, MEDICAID, SELFPAY ==
[2021-01-27 00:46] VITALS: BP 116/77; PULSE 106; RESP 18; TEMP 37; O2SAT 99; BMI 25.8
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
[2021-01-27] MEDS: fentaNYL 50 mcg/mL INJ 2mL 100 MCG IVP (02:06)
[2021-01-27] MEDS: ondansetron 2 mg/ML SDV 2 mL 4 MG IVP (02:06)
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
[2021-01-27] MEDS: ketorolac 30 mg/mL INJ 15 MG IVP (03:00)
[2021-01-27] MEDS: morphine 4 mg/mL SDV 1 mL IVP (03:00)
[2021-01-27 03:04] VITALS: BP 128/75; PULSE 80; RESP 19; O2SAT 100
[2021-01-27 04:07] VITALS: BP 126/74; PULSE 76; RESP 17; O2SAT 99
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
--- NOTE | 2021-01-30 10:05 | PC.SOCIAL ---
Per Marian Gonzalez at ENT unable to scheduled appt with ENT providers since was not able to reach after multiple attempts.
--- NOTE | 2021-02-08 15:22 | DCPLANNER ---
manager agricultural was contacted by the ENT clinic, stating that clinic has not been able to reach patient to schedule an appointment at this time a letter was mailed to patient to call clinic when they would like to schedule an appointment.
== END 2021-01-27 04:07 | disposition home or self-care (01) ==
PROVIDERS: Emergency Provider Emergency Medicine; PCP Electrodiagnostic Medicine
DX: S06.0X0A Concussion without loss of consciousness, initial encounter (principal); S02.2XXA Fracture of nasal bones, initial encounter for closed fracture; M48.061 Spinal stenosis, lumbar region without neurogenic claudication; S02.401A Maxillary fracture, unspecified side, initial encounter for closed fracture; F17.210 Nicotine dependence, cigarettes, uncomplicated; Y04.2XXA Assault by strike against or bumped into by another person, initial encounter; Y07.01 Husband, perpetrator of maltreatment and neglect
CPT/HCPCS: 70450; 70486; 70490; 72125; 72131; 72192; 96374; 96375; 99284; J1885; J2270; J2405; J3010

== ENCOUNTER 2021-12-03 17:24 | Emergency (ER) | payer BC, MEDICAID, SELFPAY ==
[2021-12-03 17:36] VITALS: BP 137/87; PULSE 97; RESP 18; TEMP 36.6; O2SAT 98; BMI 25.8
--- NOTE | 2021-12-03 17:51 | CTR_ITS ---
PROCEDURE INFORMATION: Exam: CT Abdomen And Pelvis With Contrast Exam date and time: 12/03/2021 8:35 PM Age: 26 years old Clinical indication: Abdominal pain; Localized; Right lower quadrant (rlq); Prior surgery; Surgery date: 6+ months; Surgery type: Tubal; Additional info: Rlq abdominal pain, nausea TECHNIQUE: Imaging protocol: Computed tomography of the abdomen and pelvis with contrast. Radiation optimization: All CT scans at this facility use at least one of these dose optimization techniques: automated exposure control; mA and/or kV adjustment per patient size (includes targeted exams where dose is matched to clinical indication); or iterative reconstruction. Contrast material: OMNI 350; Contrast volume: 95 ml; Contrast route: INTRAVENOUS (IV); COMPARISON: CT bony pelvis 18129 01/27/2021 2:38 AM RADIATION DOSE METRICS: Total DLP (mGy-cm): 1287.93 FINDINGS: Liver: Normal. No mass. Gallbladder and bile ducts: Normal. No calcified stones. No ductal dilation. Pancreas: Normal. No ductal dilation. Spleen: Normal. No splenomegaly. Adrenal glands: Normal. No mass. Kidneys and ureters: Normal. No hydronephrosis. Stomach and bowel: Small amount of gas and stool in the proximal colon. The majority of the colon is decompressed. No definite wall thickening. The stomach and small bowel are unremarkable. No obstruction. Appendix: The appendix is visualized and is normal. Intraperitoneal space: Mild pelvic ascites with mild stranding around the uterus and adnexa. No free peritoneal air. Vasculature: Unremarkable. No abdominal aortic aneurysm. Lymph nodes: Prominent inguinal lymph nodes are most likely reactive. Urinary bladder: Unremarkable as visualized. Reproductive: Retroflexed uterus. The uterus is inhomogeneous in density. The ovaries are unremarkable with physiologic enhancement in the right ovary. Bones/joints: Unremarkable. No acute fracture. Soft tissues: Unremarkable. CT/CT abdomen pelvis w con* [id number] IMPRESSION: 1. Mild pelvic ascites and fat stranding, with an inhomogenous uterus. Pelvic inflammatory disease is not excluded. 2. Normal appendix.
--- NOTE | 2021-12-03 17:53 | ED_ITS ---
Documented by User: SABI Blackwell 12/04/21 01:03 HPI - Abdominal Pain General: Chief Complaint: Abdominal Pain Stated Complaint: abdomen pain, rib pain Time Seen by Provider: 12/03/21 17:44 History of Present Illness: Patient is a 26-year-old female comes to the ED with abdominal pain. Symptoms have been going on now for over 2 weeks. Abdominal pain is in the right lower quadrant. She rates the pain currently a 10 out of 10 and its a constant pain. She also endorses having some left flank pain as well that started today. Pain worsens with certain positions. Is currently on her period and having heavy bleeding. Past surgical history of tubal ligation. Patient says she has had 2 negative at home tests over the past week. Patient also endorses having some dysuria. Associated Symptoms: Reports dysuria and nausea; Denies chills, constipation, diarrhea, fever(s), hematochezia, hematuria and vomiting Related Data: Date of Last Menstrual Period: 01/27/21 Review of Systems Const: Denies: fever(s), chills or fatigue Eyes: Denies: change in vision or eye discomfort ENMT: Denies: throat pain, odynophagia, nasal discharge or nasal congestion Card: Denies: chest pain, palpitations, edema, swelling of feet/ankles, dyspnea on exertion or orthopnea Resp: Denies: dyspnea, productive cough or non-productive cough GI: Reports: abdominal pain and nausea; Denies: vomiting, diarrhea, constipation or hematochezia : Reports: flank pain (Left flank pain) and dysuria; Denies: hematuria Musc: Denies: neck pain, back pain or extremity swelling Skin/Breast: Denies: rash or new lesions Neuro: Denies: headache(s), numbness in extremities or weakness in extremities PFSH ED PFSH: Medical History Anemia Headache STD (female) UTI (urinary tract infection) Surgical History History of tubal ligation Family History Denies family history of Anesthesia complication Bleeding disorder Social History Smoking and tobacco status: current every day smoker Alcohol intake: current History of recent travel: No Female Reproductive History: Date of last menstrual period: 01/27/21 Physical Exam Const: COMMON NORMALS: patient oriented x3 and alert GENERAL APPEARANCE: cooperative HENMT: COMMON NORMALS: normocephalic HEAD & SCALP: normocephalic MOUTH: Normal oral and palatal mucosa present THROAT: posterior oropharynx normal and uvula midline Eye: COMMON NORMALS: Equal, round and reactive pupils present and conjunctivae normal CONJUNCTIVA: Yes conjunctivae normal PUPIL: Yes Equal, round and reactive pupils present Neck/C-Spine: COMMON NORMALS: supple GENERAL: Yes normal visual inspection Resp: COMMON NORMALS: normal respiratory effort, No retractions, No use of accessory muscles and clear to auscultation bilaterally AUSCULTATION: clear to auscultation bilaterally Cardio: COMMON NORMALS: regular rate, regular rhythm, S1 normal heart sound present, S2 normal heart sound present, No gallops present (Cardio), No clicks present (Cardio), No murmurs present (Cardio) and Peripheral pulses 2+ throughout RATE: regular rate RHYTHM: regular rhythm HEART SOUNDS: S1 normal heart sound present and S2 normal heart sound present PERIPHERAL PULSES: Peripheral pulses 2+ throughout GI: COMMON NORMALS: Normal to inspection, nondistended, normoactive bowel sounds present, Soft to palpation and no masses PALPATION: Yes Soft to palpation and Yes Tenderness to palpation present (GI) Details: RLQ : BLADDER/KIDNEY EXAM: Yes CVA tenderness on the left Back/Pelvis: GENERAL BACK: Yes CVA tenderness Extremity: COMMON NORMALS: normal to inspection Neuro: COMMON NORMALS: patient oriented x3 SENSORIUM/ORIENTATION: Yes alert GAIT: Yes Normal gait present Skin: GENERAL SKIN EXAM: dry skin Course Vital Signs: Vital signs: Vital Signs Temperature 97.9 F 12/03/21 17:36 Pulse Rate 79 12/03/21 20:45 Respiratory Rate 16 12/03/21 20:45 Blood Pressure 139/85 12/03/21 20:45 Pulse Oximetry 100 12/03/21 20:45 MDM - Abdominal Pain Medical Decision Making Patient is a 26-year-old female comes to the ED with abdominal pain and nausea. Vitals are stable. Tenderness over right lower quadrant and left CVA tenderness. Rest of exam is benign. White blood cell count 11.3 but the rest labs are unremarkable. hCG negative. CT of the abdomen showed mild pelvic ascites and fat stranding which likely caused by PID. Patient's symptoms were controlled with IV fluids, Zofran and morphine. She was given dose of Rocephin, Flagyl and doxycycline while here in the ED. She was diagnosed with PID and discharged home with a prescription for Zofran, hydrocodone, doxycycline and Flagyl. She was told to follow-up with her PCP in the next week for reevaluation. Return to ED precautions given. Patient understood and agreed with plan. Lab Data I reviewed the patient's lab results. : 12/03/21 18:15 12/03/21 18:15 Labs/Radiology: Radiology Impressions Abdomen/Pelvis CT 12/03/21 17:51 IMPRESSION: 1. Mild pelvic ascites and fat stranding, with an inhomogenous uterus. Pelvic inflammatory disease is not excluded. 2. Normal appendix. Laboratory Results WBC 11.3 10^3/uL (4.0-10.0) H 12/03/21 18:15 RBC 4.74 10^6/uL (4.1-5.3) 12/03/21 18:15 Hgb 14.6 g/dL (11.5-15.3) 12/03/21 18:15 Hct 41.7 % (37.0-47.0) 12/03/21 18:15 MCV 88.0 fl (81-99) 12/03/21 18:15 MCH 30.8 pg (28.0-34.0) 12/03/21 18:15 MCHC 35.0 g/dL (30.0-36.0) 12/03/21 18:15 RDW 13.2 % (12.1-15.1) 12/03/21 18:15 Plt Count 259 10^3/cmm (130-400) 12/03/21 18:15 MPV 11.4 fL (7.4-10.4) H 12/03/21 18:15 Neut % (Auto) 77.7 % 12/03/21 18:15 Lymph % (Auto) 13.8 % 12/03/21 18:15 Moody % (Auto) 7.4 % 12/03/21 18:15 Eos % (Auto) 0.4 % 12/03/21 18:15 Baso % (Auto) 0.2 % 12/03/21 18:15 Neut # (Auto) 8.75 10^3/uL (1.8-7.7) H 12/03/21 18:15 Lymph # (Auto) 1.6 10^3/uL (0.8-4.8) 12/03/21 18:15 Moody # (Auto) 0.8 10^3/uL (0.2-0.9) 12/03/21 18:15 Eos # (Auto) 0.1 10^3/uL (0.0-0.8) 12/03/21 18:15 Baso # (Auto) 0.0 10^3/uL (0.0-0.1) 12/03/21 18:15 Nucleated RBC % (auto) 0 % 12/03/21 18:15 Nucleated RBCs # 0.0 /100WBC 12/03/21 18:15 Sodium 136 mmol/L (136-145) 12/03/21 18:15 Potassium 3.3 mmol/L (3.5-5.1) L 12/03/21 18:15 Chloride 102 mmol/L (98-107) 12/03/21 18:15 Carbon Dioxide 20 mmol/L (22-29) L 12/03/21 18:15 Anion Gap 17.3 (5-19) 12/03/21 18:15 BUN 11 mg/dL (6-20) 12/03/21 18:15 Creatinine 0.6 mg/dL (0.5-0.9) 12/03/21 18:15 GFR Calculation 119.9 mL/min (90-130) 12/03/21 18:15 Glucose 73 mg/dL (65-115) 12/03/21 18:15 Calculated Osmolality 280 mOsm/kg (285-295) L 12/03/21 18:15 Calcium 9.2 mg/dL (8.5-10.5) 12/03/21 18:15 Total Bilirubin 0.4 mg/dL (0.15-1.2) 12/03/21 18:15 AST 11 U/L (0-32) 12/03/21 18:15 ALT 11 U/L (0-33) 12/03/21 18:15 Alkaline Phosphatase 86 IU/L (35-105) 12/03/21 18:15 Total Protein 7.5 g/dL (6.6-8.7) 12/03/21 18:15 Albumin 4.6 g/dL (3.5-5.2) 12/03/21 18:15 Globulin 2.9 g/dL (1.3-4.6) 12/03/21 18:15 Lipase 14 U/L (13-60) 12/03/21 18:15 HCG, Qual Negative (Negative) 12/03/21 18:15 Urine Color Yellow (Yellow) 12/03/21 18:35 Urine Appearance Cloudy (CLEAR) 12/03/21 18:35 Urine pH 8 (5-7) H 12/03/21 18:35 Ur Specific [place] 1.020 (1.005-1.030) 12/03/21 18:35 Urine Protein Neg (Negative) 12/03/21 18:35 Urine Glucose (UA) Norm (Normal) 12/03/21 18:35 Urine Ketones 1+ (Negative) H 12/03/21 18:35 Urine Blood 3+ (Negative) H 12/03/21 18:35 Urine Nitrate Negative (Negative) 12/03/21 18:35 Urine Bilirubin Neg (Negative) 12/03/21 18:35 Prot Sulfosalicylic Acd Negative (Negative) 12/03/21 18:35 Urine Urobilinogen 4 mg/dL (Negative) H 12/03/21 18:35 Ur Leukocyte Esterase Trace (Negative) H 12/03/21 18:35 Urine RBC 25-40 /hpf (0-2) H 12/03/21 18:35 Urine WBC 5-10 /hpf (0-5) H 12/03/21 18:35 Ur Squamous Epith Cells 0-4 /hpf (0-5) H 12/03/21 18:35 Amorphous Sediment Not Reportable 12/03/21 18:35 Urine Bacteria 2+ /hpf (NONE) H 12/03/21 18:35 Discharge Plan Discharge Patient Disposition: Home Clinical Impression: Acute pelvic inflammatory disease (PID) Condition: Stable Prescriptions: New doxycycline hyclate 100 mg capsule 100 mg PO BID 14 Days Qty: 28 0RF ondansetron 4 mg tablet,disintegrating 4 mg PO Q8H PRN (Reason: nausea and vomiting) Qty: 20 0RF metronidazole 500 mg tablet 500 mg PO BID 14 Days Qty: 28 0RF No Action ibuprofen 800 mg tablet 800 mg PO Q8H PRN (Reason: pain) Qty: 30 0RF cyclobenzaprine 5 mg tablet 5 mg PO TID PRN (Reason: muscle spasm) Qty: 14 0RF K-Tab 20 mEq tablet extended release 20 meq PO DAILY Qty: 10 0RF Child Multivitamins Tablet,Chewable 1 tab PO DAILY 0RF lidocaine 5 % cream 1 applic TOPICAL QID PRN (Reason: pain) Qty: 45 0RF ibuprofen 800 mg tablet 800 mg PO TID PRN (Reason: pain) Qty: 30 0RF hydrocodone-acetaminophen 5-325 mg tablet 1 tab PO Q8H PRN (Reason: pain) Qty: 10 0RF Discharge Orders: Discharge ED (Routine); Ordered 12/03/21 Ordered By: Otto Galicia Discharge Diet: Regular Discharge Activity: Increase activity as tolerated Patient Instructions: Pelvic Inflammatory Disease (DC), Opioid Safety Activity Restrictions/Additional Instructions: Follow-up with medical provider as directed in the next 5 to 7 days r eevaluation. Take medications as prescribed. No sexual intercourse till symptoms resolved. Return to the ER or your medical provider if condition worsens. Please read and understand discharge instructions. Thank you for choosing [facility] for your healthcare needs today. Please realize this is an emergency room and that we are providing you with a medical screening exam and this may not be complete and all inclusive of all the testing and or work up that you may need to determine your ailment or severity of your illness. It is very important that you follow up as instructed or that you return to the Emergency Department should you have concerns or if your condition changes or worsens in any way. 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 [employer] Exam Comprehensive Documented by User: Harjeet Karimi MD 12/06/21 00:05 HPI - Abdominal Pain General: Chief Complaint: Abdominal Pain Stated Complaint: abdomen pain, rib pain Time Seen by Provider: 12/03/21 17:44 [facility] ED PFS: Medical History Anemia Headache STD (female) UTI (urinary tract infection) Surgical History History of tubal ligation Family History Denies family history of Anesthesia complication Bleeding disorder Social History Smoking and tobacco status: current every day smoker Alcohol intake: current History of recent travel: No Course Vital Signs: Vital signs: Vital Signs Temperature 97.9 F 12/03/21 17:36 Pulse Rate 79 12/03/21 20:45 Respiratory Rate 16 12/03/21 20:45 Blood Pressure 139/85 12/03/21 20:45 Pulse Oximetry 100 12/03/21 20:45 MDM - Abdominal Pain Medical Decision Making Patient is a 26-year-old female comes to the ED with abdominal pain and nausea. Vitals are stable. Tenderness over right lower quadrant and left CVA tenderness. Rest of exam is benign. White blood cell count 11.3 but the rest labs are unremarkable. hCG negative. CT of the abdomen showed mild pelvic ascites and fat stranding which likely caused by PID. Patient's symptoms were controlled with IV fluids, Zofran and morphine. She was given dose of Rocephin, Flagyl and doxycycline while here in the ED. She was diagnosed with PID and discharged home with a prescription for Zofran, hydrocodone, doxycycline and Flagyl. She was told to follow-up with her PCP in the next week for reevaluation. Return to ED precautions given. Patient understood and agreed wi th plan. I discussed this case with SABI Blackwell. I have reviewed documentation, labs, imaging. Recommended treatment for PID. Harjeet Karimi MD Emergency Medicine Lab Data : 12/03/21 18:15 12/03/21 18:15 Labs/Radiology: Radiology Impressions Abdomen/Pelvis CT 12/03/21 17:51 IMPRESSION: 1. Mild pelvic ascites and fat stranding, with an inhomogenous uterus. Pelvic inflammatory disease is not excluded. 2. Normal appendix. Laboratory Results WBC 11.3 10^3/uL (4.0-10.0) H 12/03/21 18:15 RBC 4.74 10^6/uL (4.1-5.3) 12/03/21 18:15 Hgb 14.6 g/dL (11.5-15.3) 12/03/21 18:15 Hct 41.7 % (37.0-47.0) 12/03/21 18:15 MCV 88.0 fl (81-99) 12/03/21 18:15 MCH 30.8 pg (28.0-34.0) 12/03/21 18:15 MCHC 35.0 g/dL (30.0-36.0) 12/03/21 18:15 RDW 13.2 % (12.1-15.1) 12/03/21 18:15 Plt Count 259 10^3/cmm (130-400) 12/03/21 18:15 MPV 11.4 fL (7.4-10.4) H 12/03/21 18:15 Neut % (Auto) 77.7 % 12/03/21 18:15 Lymph % (Auto) 13.8 % 12/03/21 18:15 Moody % (Auto) 7.4 % 12/03/21 18:15 Eos % (Auto) 0.4 % 12/03/21 18:15 Baso % (Auto) 0.2 % 12/03/21 18:15 Neut # (Auto) 8.75 10^3/uL (1.8-7.7) H 12/03/21 18:15 Lymph # (Auto) 1.6 10^3/uL (0.8-4.8) 12/03/21 18:15 Moody # (Auto) 0.8 10^3/uL (0.2-0.9) 12/03/21 18:15 Eos # (Auto) 0.1 10^3/uL (0.0-0.8) 12/03/21 18:15 Baso # (Auto) 0.0 10^3/uL (0.0-0.1) 12/03/21 18:15 Nucleated RBC % (auto) 0 % 12/03/21 18:15 Nucleated RBCs # 0.0 /100WBC 12/03/21 18:15 Sodium 136 mmol/L (136-145) 12/03/21 18:15 Potassium 3.3 mmol/L (3.5-5.1) L 12/03/21 18:15 Chloride 102 mmol/L (98-107) 12/03/21 18:15 Carbon Dioxide 20 mmol/L (22-29) L 12/03/21 18:15 Anion Gap 17.3 (5-19) 12/03/21 18:15 BUN 11 mg/dL (6-20) 12/03/21 18:15 Creatinine 0.6 mg/dL (0.5-0.9) 12/03/21 18:15 GFR Calculation 119.9 mL/min (90-130) 12/03/21 18:15 Glucose 73 mg/dL (65-115) 12/03/21 18:15 Calculated Osmolality 280 mOsm/kg (285-295) L 12/03/21 18:15 Calcium 9.2 mg/dL (8.5-10.5) 12/03/21 18:15 Total Bilirubin 0.4 mg/dL (0.15-1.2) 12/03/21 18:15 AST 11 U/L (0-32) 12/03/21 18:15 ALT 11 U/L (0-33) 12/03/21 18:15 Alkaline Phosphatase 86 IU/L (35-105) 12/03/21 18:15 Total Protein 7.5 g/dL (6.6-8.7) 12/03/21 18:15 Albumin 4.6 g/dL (3.5-5.2) 12/03/21 18:15 Globulin 2.9 g/dL (1.3-4.6) 12/03/21 18:15 Lipase 14 U/L (13-60) 12/03/21 18:15 HCG, Qual Negative (Negative) 12/03/21 18:15 Urine Color Yellow (Yellow) 12/03/21 18:35 Urine Appearance Cloudy (CLEAR) 12/03/21 18:35 Urine pH 8 (5-7) H 12/03/21 18:35 Ur Specific [place] 1.020 (1.005-1.030) 12/03/21 18:35 Urine Protein Neg (Negative) 12/03/21 18:35 Urine Glucose (UA) Norm (Normal) 12/03/21 18:35 Urine Ketones 1+ (Negative) H 12/03/21 18:35 Urine Blood 3+ (Negative) H 12/03/21 18:35 Urine Nitrate Negative (Negative) 12/03/21 18:35 Urine Bilirubin Neg (Negative) 12/03/21 18:35 Prot Sulfosalicylic Acd Negative (Negative) 12/03/21 18:35 Urine Urobilinogen 4 mg/dL (Negative) H 12/03/21 18:35 Ur Leukocyte Esterase Trace (Negative) H 12/03/21 18:35 Urine RBC 25-40 /hpf (0-2) H 12/03/21 18:35 Urine WBC 5-10 /hpf (0-5) H 12/03/21 18:35 Ur Squamous Epith Cells 0-4 /hpf (0-5) H 12/03/21 18:35 Amorphous Sediment Not Reportable 12/03/21 18:35 Urine Bacteria 2+ /hpf (NONE) H 12/03/21 18:35 Discharge Plan Discharge Patient Disposition: Home Clinical Impression: Acute pelvic inflammatory disease (PID) Condition: Stable Prescriptions: New doxycycline hyclate 100 mg capsule 100 mg PO BID 14 Days Qty: 28 0RF ondansetron 4 mg tablet,disintegrating 4 mg PO Q8H PRN (Reason: nausea and vomiting) Qty: 20 0RF metronidazole 500 mg tablet 500 mg PO BID 14 Days Qty: 28 0RF No Action ibuprofen 800 mg tablet 800 mg PO Q8H PRN (Reason: pain) Qty: 30 0RF cyclobenzaprine 5 mg tablet 5 mg PO TID PRN (Reason: muscle spasm) Qty: 14 0RF K-Tab 20 mEq tablet extended release 20 meq PO DAILY Qty: 10 0RF Child Multivitamins Tablet,Chewable 1 tab PO DAILY 0RF lidocaine 5 % cream 1 applic TOPICAL QID PRN (Reason: pain) Qty: 45 0RF ibuprofen 800 mg tablet 800 mg PO TID PRN (Reason: pain) Qty: 30 0RF hydrocodone-acetaminophen 5-325 mg tablet 1 tab PO Q8H PRN (Reason: pain) Qty: 10 0RF Discharge Orders: Discharge ED (Routine); Ordered 12/03/21 Ordered By: Otto Galicia Discharge Diet: Regular Discharge Activity: Increase activity as tolerated Patient Instructions: Pelvic Inflammatory Disease (DC), Opioid Safety Activity Restrictions/Additional Instructions: Follow-up with medical provider as directed in the next 5 to 7 days reevaluation. Take medications as prescribed. No sexual intercourse till symptoms resolved. Return to the ER or your medical provider if condition worsens. Please read and understand discharge instructions. Thank you for choosing [facility] for your healthcare needs today. Please realize this is an emergency room and that we are providing you with a medical screening exam and this may not be complete and all inclusive of all the testing and or work up that you may need to determine your ailment or severity of your illness. It is very important that you follow up as instructed or that you return to the Emergency Department should you have concerns or if your condition changes or worsens in any way. 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 [employer] Exam Comprehensive
[2021-12-03 18:08] VITALS: RESP 18; O2SAT 95
[2021-12-03] MEDS: morphine 4 mg/mL SDV 1 mL IVP ×2 (18:08→20:06)
[2021-12-03] MEDS: sodium chloride 0.9% 1,000 ML 999 ML IV (18:09)
[2021-12-03] MEDS: ondansetron 2 mg/ML SDV 2 mL 4 MG IVP (18:09)
[2021-12-03 18:33] LABS: Basophils % 0.2 %; Eosinophils # 0.1 10^3/uL (0.0-0.8); Eosinophils % 0.4 %; Hematocrit 41.7 % (37.0-47.0); Hemoglobin 14.6 g/dL (11.5-15.3); Lymphocytes # 1.6 10^3/uL (0.8-4.8); Lymphocytes % 13.8 %; Mean Corpuscular Hemoglobin 30.8 pg (28.0-34.0); Mean Platelet Volume 11.4 fL (7.4-10.4); Monocytes # 0.8 10^3/uL (0.2-0.9); Monocytes % 7.4 %; Neutrophils # 8.75 10^3/uL (1.8-7.7); Neutrophils % 77.7 %; Nucleated Red Blood Cells % 0 %; Platelet Count 259 10^3/cmm (130-400); Red Blood Count 4.74 10^6/uL (4.1-5.3); Red Cell Distribution Width 13.2 % (12.1-15.1); White Blood Count 11.3 10^3/uL (4.0-10.0)
[2021-12-03 18:53] VITALS: BP 124/73; PULSE 78; RESP 16; O2SAT 100
[2021-12-03 19:01] LABS: Alanine Aminotransferase 11 U/L (0-33); Albumin Level 4.6 g/dL (3.5-5.2); Alkaline Phosphatase 86 IU/L (35-105); Anion Gap 17.3 (5-19); Aspartate Amino Transferase 11 U/L (0-32); Blood Urea Nitrogen 11 mg/dL (6-20); Calcium 9.2 mg/dL (8.5-10.5); Carbon Dioxide 20 mmol/L (22-29); Chloride 102 mmol/L (98-107); Creatinine Clr Calc Pharmacy 148.7379; Globulin 2.9 g/dL (1.3-4.6); Glomerular Filtration Rate 119.9 mL/min (90-130); Glucose 73 mg/dL (65-115); Lipase 14 U/L (13-60); Osmolality Calculated 280 mOsm/kg (285-295); Potassium 3.3 mmol/L (3.5-5.1); Sodium 136 mmol/L (136-145); Total Bilirubin 0.4 mg/dL (0.15-1.2); Total Protein 7.5 g/dL (6.6-8.7)
[2021-12-03 19:22] LABS: Urine Appearance Cloudy (CLEAR); Urine Color Yellow (Yellow); pH Urine 8 (5-7)
[2021-12-03 19:23] LABS: Bilirubin Urine Neg (Negative); Blood Urine 3+ (Negative); Glucose Urine UA Norm (Normal); Ketones Urine 1+ (Negative); Nitrate Urine Negative (Negative); Protein Urine Neg (Negative); Sulfosalicylic Acid Urine Negative (Negative)
[2021-12-03 19:24] LABS: Add Urine Microscopic? YES; Leukocyte Esterase Urine Trace (Negative); RBC Urine 25-40 /hpf (0-2); Squamous Epithelial Cell Urine 0-4 /hpf (0-5); Urobilinogen Urine 4 mg/dL (Negative)
[2021-12-03 19:25] LABS: Add Urine Culture? Yes
[2021-12-03 19:46] LABS: HCG, Serum Qual Negative (Negative)
[2021-12-03 20:06] VITALS: RESP 22; O2SAT 98
[2021-12-03 20:12] LABS: Charge for UA Resulting for Rev
[2021-12-03] MEDS: diphenhydrAMINE 50 mg/mL SDV 1mL IVP (20:13)
[2021-12-03 20:29] LABS: Bacteria Urine 2+ /hpf
[2021-12-03] MEDS: iohexol 350 mg/mL 100 mL Btl IV (20:39)
[2021-12-03 20:45] VITALS: BP 139/85; PULSE 79; RESP 16; O2SAT 100
[2021-12-03] MEDS: doxycycline 100 mg Tablet PO (22:07)
[2021-12-03] MEDS: metroNIDAZOLE 500 MG Tablet PO (22:07)
== END 2021-12-03 22:30 | disposition home or self-care (01) ==
PROVIDERS: Emergency Provider Physician Assistant
DX: N73.9 Female pelvic inflammatory disease, unspecified (principal); Z79.891 Long term (current) use of opiate analgesic
CPT/HCPCS: 74177; 80053; 81001; 81003; 83690; 84703; 85025; 87040; 87086; 96365; 96375; 96376; 99284; J0696; J1200; J2270; J2405; J2920; J7030; Q9967

== ENCOUNTER 2022-02-07 21:06 | Emergency (ER) | payer BC, MEDICAID, SELFPAY ==
[2022-02-07 21:09] VITALS: PULSE 91; RESP 16; TEMP 37.3; O2SAT 99
--- NOTE | 2022-02-07 21:15 | XRR_ITS ---
PROCEDURE INFORMATION: Exam: XR Right Ribs with PA Chest Exam date and time: 02/07/2022 9:51 PM Age: 26 years old Clinical indication: Injury or trauma; Fall; Rib area; Blunt trauma (contusions or hematomas) TECHNIQUE: Imaging protocol: Radiologic exam of the Right ribs with PA chest. Views: 3 views COMPARISON: CR XR chest 1V portable [id number] 08/11/2019 11:19 AM FINDINGS: Lungs: Unremarkable. No consolidation. Pleural spaces: Unremarkable. No pleural effusion. No pneumothorax. Heart/Mediastinum: Unremarkable. No cardiomegaly. Bones/joints: Unremarkable. XR/XR ribs RT mn 3V w CXR1V [id number] IMPRESSION: No acute findings.
--- NOTE | 2022-02-07 22:52 | ED_ITS ---
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 She states pain is worse with deep inhalation, palpation, and movement of her right chest. She is not having any shortness of breath or difficulty breathing. She has no other complaints or injuries at this time. complaint: chest pain Onset (ago): week(s) (one week ago) Timing of current episode: constant Prior episodes: No Onset: other (injury) Pain location: right chest Pain radiation: none Severity: moderate Relieving factors: rest Exacerbating factors: inspiration and movement Context: trauma/injury Associated symptoms: Reports no associated symptoms; Deny abdominal pain, dyspnea, fever(s), nausea, palpitations, syncope or vomiting Treatment prior to arrival: none Risk Factors: Coronary artery disease risk factors: none Thoracic aortic dissection risk factors: none Review of Systems Const: Denies: fever(s), chills, body aches, fatigue or malaise Card: Reports: chest pain; Denies: palpitations, irregular heart rhythm, edema, swelling of feet/ankles, lightheadedness, syncope, pre-syncope, dyspnea on exertion, orthopnea, leg pain with exertion or acrocyanosis Resp: Reports: pain on inspiration; Denies: dyspnea, productive cough, non-productive cough, wheezing, hemoptysis or chest congestion GI: Denies: abdominal pain, nausea, vomiting or diarrhea Musc: Denies: neck pain, back pain, extremity pain or joint pain Skin/Breast: Denies: rash Neuro: Denies: headache(s) PFS ED PFSH: Medical History Anemia Headache STD (female) UTI (urinary tract infection) Surgical History History of tubal ligation Family History Denies family history of Anesthesia complication Bleeding disorder Social History Smoking and tobacco status: current every day smoker Alcohol intake: current History of recent travel: No Female Reproductive History: Date of last menstrual period: 01/27/21 Physical Exam Const: COMMON NORMALS: no acute distress, average body habitus, patient oriented x3, no limitations, healthy appearing, alert and well nourished HENMT: COMMON NORMALS: normocephalic and atraumatic HEAD & SCALP: normal to inspection, normocephalic and atraumatic Neck/C-Spine: COMMON NORMALS: full ROM GENERAL: Yes normal visual inspection CERVICAL SPINE: Yes cervical ROM normal, No pain with cervical ROM, No Cervical spine tenderness and No step off deformity Chest: COMMONS NORMALS: normal inspection of the chest OTHER: TTP R anteriolateral chest wall; no crepitus; normal breath sounds Resp: COMMON NORMALS: normal respiratory effort and clear to auscultation bilaterally AUSCULTATION: clear to auscultation bilaterally Cardio: COMMON NORMALS: regular rate and regular rhythm RATE: regular rate RHYTHM: regular rhythm GI: COMMON NORMALS: Normal to inspection, nondistended, normoactive bowel sounds present, Soft to palpation, non-tender, No hepatosplenomegaly present and no masses PALPATION: Yes Soft to palpation and Yes No hepatosplenomegaly present Back/Pelvis: COMMON NORMALS: thoracic and lumbar spine normal to inspection, no thoracic nor lumbar tenderness and thoraco-lumbar ROM normal Extremity: COMMON NORMALS: normal to inspection and full ROM GENERAL: Yes normal exam except as noted Neuro: [place] COMA SCALE: document GCS findings [place] coma scale eye opening: Spontaneous [place] coma scale verbal response: Orientated [place] coma scale motor response: Obey commands [place] coma scale total score: 15 COMMON NORMALS: patient oriented x3, moves all extremities, no focal motor deficits and no sensory deficits noted SENSORIUM/ORIENTATION: Yes alert Skin: COMMON NORMALS: no rashes or lesions noted GENERAL SKIN EXAM: no rashes or lesions noted TRAUMA: no lacerations or abrasions Course Vital Signs: Vital signs: Vital Signs Temperature 99.1 F 02/07/22 21:09 Pulse Rate 91 02/07/22 21:09 Respiratory Rate 16 02/07/22 21:09 Pulse Oximetry 99 02/07/22 21:09 MDM - Chest Pain Medical Decision Making XR negative. Recommend conservative management with ice/heat, NSAIDs, and rest. Follow-up with primary care in 3 to 5 days if symptoms do not seem to be improving. Return to ED precautions given. Lab Data Radiology Impressions Ribs X-Ray 02/07/22 21:15 IMPRESSION: No acute findings. Discharge Plan Discharge Patient Disposition: Home Clinical Impression: Chest wall contusion Qualifiers: Encounter type: initial encounter Laterality: right Qualified Code(s): S20.211A - Contusion of right front wall of thorax, initial encounter Condition: Stable Prescriptions: No Action ibuprofen 800 mg tablet 800 mg PO Q8H PRN (Reason: pain) Qty: 30 0RF cyclobenzaprine 5 mg tablet 5 mg PO TID PRN (Reason: muscle spasm) Qty: 14 0RF K-Tab 20 mEq tablet extended release 20 meq PO DAILY Qty: 10 0RF Child Multivitamins Tablet,Chewable 1 tab PO DAILY 0RF lidocaine 5 % cream 1 applic TOPICAL QID PRN (Reason: pain) Qty: 45 0RF ibuprofen 800 mg tablet 800 mg PO TID PRN (Reason: pain) Qty: 30 0RF hydrocodone-acetaminophen 5-325 mg tablet 1 tab PO Q8H PRN (Reason: pain) Qty: 10 0RF ondansetron 4 mg tablet,disintegrating 4 mg PO Q8H PRN (Reason: nausea and vomiting) Qty: 20 0RF Discharge Orders: Discharge ED (Routine); Ordered 02/07/22 Ordered By: Raegan Clifton 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
== END 2022-02-07 23:20 | disposition home or self-care (01) ==
PROVIDERS: Emergency Provider Physician Assistant
DX: S20.211A Contusion of right front wall of thorax, initial encounter (principal); W19.XXXA Unspecified fall, initial encounter; Y92.129 Unspecified place in nursing home as the place of occurrence of the external cause
CPT/HCPCS: 71101; 99283

== ENCOUNTER 2022-04-17 08:05 | Emergency (ER) | payer BC, MEDICAID, SELFPAY ==
[2022-04-17 08:08] VITALS: BP 117/73; PULSE 96; RESP 18; TEMP 36.5; O2SAT 100; BMI 26.6
--- NOTE | 2022-04-17 08:22 | ED_ITS ---
HPI - Skin/Abscess/Foreign Bdy General: Chief complaint: Skin/Abscess/Foreign Body Stated complaint: sore on right hip Time Seen by Provider: 04/17/22 08:11 Source: patient Mode of arrival: ambulatory Limitations: no limitations History of Present Illness: 27-year-old female has an abscess to her right buttocks she states that since 4 days ago she states that she removed a tick and had another bite in that area she states that she has had drainage with enlarging states it is painful to touch rates pain a 5 out of 10 denies any fever denies any worsening proving factors. Associated symptoms: Deny chills, fever(s), nausea or vomiting Review of Systems Const: Denies: fever(s), chills, body aches or change in appetite Eyes: Denies: blurry vision or eye discomfort ENMT: Denies: throat pain or dental pain Card: Denies: chest pain Resp: Denies: dyspnea GI: Denies: abdominal pain, nausea, vomiting or diarrhea : Denies: dysuria Musc: Denies: neck pain or back pain Skin/Breast: Reports: sores; Denies: rash Neuro: Denies: headache(s) Psych: Denies: depression Lavell/Lymph: Denies: easy bruising All/Imm: Denies: urticaria PFSH ED PFSH: Medical History (Updated 04/17/22 @ 08:24 by Paolo Trivedi MD) Anemia Headache STD (female) UTI (urinary tract infection) Surgical History History of tubal ligation Family History Denies family history of Anesthesia complication Bleeding disorder Social History Smoking and tobacco status: current every day smoker Alcohol intake: current History of recent travel: No Female Reproductive History: Date of last menstrual period: 04/07/22 Physical Exam Const: COMMON NORMALS: no acute distress, patient oriented x3 and healthy appearing HENMT: COMMON NORMALS: normocephalic and atraumatic HEAD & SCALP: normocephalic and atraumatic Eye: COMMON NORMALS: Equal, round and reactive pupils present and EOMs intact bilaterally PUPIL: Yes Equal, round and reactive pupils present Neck/C-Spine: COMMON NORMALS: full ROM and supple Chest: COMMONS NORMALS: normal inspection of the chest and normal palpation of entire chest wall Resp: COMMON NORMALS: normal respiratory effort, No retractions, No use of accessory muscles and clear to auscultation bilaterally AUSCULTATION: clear to auscultation bilaterally Cardio: COMMON NORMALS: regular rate, regular rhythm and No murmurs present (Cardio) RATE: regular rate RHYTHM: regular rhythm GI: COMMON NORMALS: Normal to inspection, nondistended, normoactive bowel sounds present, Soft to palpation, non-tender and no masses PALPATION: Yes Soft to palpation Extremity: OTHER: 4 cm abscess noticed to right buttock some slight drainage at this time slight erythema as well Neuro: COMMON NORMALS: patient oriented x3, moves all extremities and no focal motor deficits Psych: COMMON NORMALS: mental status grossly normal, Normal thought process present and cooperative THOUGHT PROCESS: Normal thought process present Skin: COMMON NORMALS: no rashes or lesions noted and no wounds GENERAL SKIN EXAM: no rashes or lesions noted Procedures Abscess I/D Site: other (buttocks) Side (if applicable): right Local Anesthetic: lidocaine 1% Amount of anesthesia used (mL): 10 Technique: incised with #11 blade Packing used?: iodoform Course Vital Signs: Vital signs: Vital Signs Temperature 97.7 F 04/17/22 08:08 Pulse Rate 96 04/17/22 08:08 Respiratory Rate 18 04/17/22 08:08 Blood Pressure 117/73 04/17/22 08:08 Pulse Oximetry 100 04/17/22 08:08 Oxygen Delivery Ks thod 04/17/22 08:08 MDM - Skin/Abscess/Foreign Bdy Medicial Decision Making Patient presents with abscess to her right buttocks did incise and drain the abscess. Patient had a moderate amount of purulent drainage she has no signs of sepsis we will start her on Bactrim she is to return in 2 days for packing removal she understands agrees to plan. Discharge Plan Discharge Patient Disposition: Home Clinical Impression: Abscess Condition: Stable Prescriptions: New hydrocodone-acetaminophen 5-325 mg tablet 1 tab PO Q6H PRN (Reason: pain) Qty: 14 0RF Bactrim DS 800-160 mg tablet 1 tab PO BID 10 Days Qty: 20 0RF No Action ibuprofen 800 mg tablet 800 mg PO Q8H PRN (Reason: pain) Qty: 30 0RF cyclobenzaprine 5 mg tablet 5 mg PO TID PRN (Reason: muscle spasm) Qty: 14 0RF K-Tab 20 mEq tablet extended release 20 meq PO DAILY Qty: 10 0RF Child Multivitamins Tablet,Chewable 1 tab PO DAILY lidocaine 5 % cream 1 applic TOPICAL QID PRN (Reason: pain) Qty: 45 0RF ibuprofen 800 mg tablet 800 mg PO TID PRN (Reason: pain) Qty: 30 0RF hydrocodone-acetaminophen 5-325 mg tablet 1 tab PO Q8H PRN (Reason: pain) Qty: 10 0RF ondansetron 4 mg tablet,disintegrating 4 mg PO Q8H PRN (Reason: nausea and vomiting) Qty: 20 0RF Discharge Orders: Discharge ED (Routine); Ordered 04/17/22 Ordered By: Paolo Trivedi Discharge Diet: Advance as tolerated Discharge Activity: Resume usual activity Patient Instructions: Abscess (ED) 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
--- NOTE | 2022-04-17 08:24 | PC.NURSE ---
pt reports she was covered in ticks and has removed them, however, has noticed a draining abscess to right hip/buttock. area noted to have purulent drainage with firmness extending across an approximate 3-4 inch diameter. reports a subjective fever. attempted to take ibuprofen at home with no pain relief.
[2022-04-17] MEDS: HYDROcodone-acetaminophen 5-325 mg Tablet 1 TAB PO (08:31)
[2022-04-17] MEDS: sulfamethoxazole-trimeth DS 160-800 mg Tablet 1 TAB PO (08:35)
--- NOTE | 2022-04-17 08:44 | PC.NURSE ---
I&D with packing performed by physician. 4x4 gauze dressing placed over area per physician instructions.
[2022-04-17 09:33] VITALS: BP 111/68; PULSE 87; RESP 18; O2SAT 99
== END 2022-04-17 09:37 | disposition home or self-care (01) ==
PROVIDERS: Emergency Provider Emergency Medicine
DX: L02.31 Cutaneous abscess of buttock (principal); F17.200 Nicotine dependence, unspecified, uncomplicated
CPT/HCPCS: 10060; 87070; 87077; 87186; 99283

== ENCOUNTER 2022-08-15 04:24 | Emergency (ER) | payer BC, MEDICAID, SELFPAY ==
--- NOTE | 2022-08-15 04:25 | ED_ITS ---
HPI - Chest Pain General: Stated Complaint: Heart Hurts Time Seen by Provider: 08/15/22 04:25 PFSH ED PFSH: Medical History Anemia Headache STD (female) UTI (urinary tract infection) Surgical History History of tubal ligation Family History Denies family history of Anesthesia complication Bleeding disorder Social History Smoking and tobacco status: current every day smoker Alcohol intake: current History of recent travel: No Female Reproductive History: Date of last menstrual period: 04/07/22 Discharge Plan Discharge Condition: Stable Prescriptions: No Action mupirocin 2 % ointment 1 applic topical BID 21 Days Qty: 22 0RF Rx Instructions: Apply to each nostril using Qtip twice a day sulfamethoxazole-trimethoprim [Bactrim DS] 800-160 mg tablet 1 tab PO BID 10 Days Qty: 20 0RF 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
[2022-08-15 04:37] VITALS: BP 122/86; PULSE 90; RESP 18; TEMP 36.6; O2SAT 100; BMI 23.5
--- NOTE | 2022-08-15 04:49 | ED_ITS ---
Documented by User: Harjeet Karimi MD 08/27/22 21:11 HPI - General Adult General: Chief complaint: Extremity Injury, Upper Stated complaint: Arm hurts Time Seen by Provider: 08/15/22 04:25 History of Present Illness: Ms. Richmond is a 27-year-old lady presenting to the emergency department due to concern of her arm symptoms. Reports intermittent history of bilateral fingertip tingling on occasion however starting yesterday had increased pain and subjective weakness as well as cold feeling in the left extremity. Denies any known trauma. Denies any other neurologic symptoms. Intensity symptoms is mild to moderate. Course has persisted. No other specific changes in health, exacerbating, or alleviating factors identified. Onset (ago): day(s) Location: left and upper extremity Severity: moderate Relieving factors: none Exacerbating factors: none Associated symptoms: Reports no associated symptoms Review of Systems General: Reports: 10 or more systems reviewed and unremarkable except in HPI and below PFSH ED PFSH: Medical History (Updated 08/23/22 @ 00:01 by ELOY Arnett) Anemia Headache STD (female) UTI (urinary tract infection) Surgical History History of tubal ligation Family History Denies family history of Anesthesia complication Bleeding disorder Social History Smoking and tobacco status: current every day smoker Alcohol intake: current History of recent travel: No Female Reproductive History: Date of last menstrual period: 04/07/22 Physical Exam Const: COMMON NORMALS: alert GENERAL APPEARANCE: cooperative and well developed HENMT: COMMON NORMALS: normocephalic and atraumatic HEAD & SCALP: normoc ephalic and atraumatic Eye: COMMON NORMALS: conjunctivae normal CONJUNCTIVA: Yes conjunctivae normal SCLERA: sclerae normal Neck/C-Spine: COMMON NORMALS: supple and no meningeal signs GENERAL: Yes trachea midline Resp: COMMON NORMALS: normal respiratory effort EFFORT & INSPECTION: Yes able to speak in complete sentences Cardio: COMMON NORMALS: regular rate and regular rhythm RATE: regular rate RHYTHM: regular rhythm GI: COMMON NORMALS: Soft to palpation PALPATION: Yes Soft to palpation and No Tenderness to palpation present (GI) PERCUSSION: normal to percussion Extremity: NARRATIVE EXTREMITY EXAM: Left upper extremity with forearms mildly cooler bilaterally, no objective abnormal findings. Pulses are 2+ symmetric bilaterally ulnar and radial. No skin rashes or overlying lesions. GENERAL: Yes normal exam except as noted and No edema Neuro: COMMON NORMALS: moves all extremities SENSORIUM/ORIENTATION: Yes alert and No Orientation impaired MENINGEAL SIGNS: Yes no meningeal signs Psych: COMMON NORMALS: mental status grossly normal and Normal thought process present THOUGHT PROCESS: Normal thought process present Course Vital Signs: Vital signs: Vital Signs Temperature 98 F 08/15/22 04:37 Pulse Rate 90 08/15/22 04:37 Respiratory Rate 18 08/15/22 04:37 Blood Pressure 122/86 08/15/22 04:37 Pulse Oximetry 100 08/15/22 04:37 Oxygen Delivery Me thod 08/15/22 04:37 [facility] - General Adult Medical Decision Making 27-year-old lady presenting with upper extremity concern as well as concern over vaginal discharge. Exam as above. No indication of acute limb ischemia or other acute pathology requiring emergent intervention. Laboratory studies with no leukocytosis, perhaps mild dehydration on metabolic panel however patient can adequately orally rehydrate, transaminitis of uncertain significance or etiology discussed with patient. Handed off to Dr. Mauricio pending completion of imaging studies. Care assumed at change of shift venous duplex was negative. Chest x-ray negative. No acute emergent condition present. Wet mount showed evidence of bacterial vaginosis. Patient be treated metronidazole. Follow-up with primary care if symptoms in the arm persist may need further evaluation including potentially advanced imaging or peripheral nerve studies. Lab Data 08/15/22 04:49 08/15/22 04:49 Radiology Impressions Chest X-Ray 08/15/22 04:58 IMPRESSION: No acute cardiopulmonary abnormality. Venous Duplex 08/15/22 04:58 IMPRESSION: No evidence of deep vein thrombosis. Laboratory Results WBC 6.8 10^3/uL (4.0-10.0) 08/15/22 04:49 RBC 4.29 10^6/uL (4.1-5.3) 08/15/22 04:49 Hgb 13.0 g/dL (11.5-15.3) 08/15/22 04:49 Hct 38.6 % (37.0-47.0) 08/15/22 04:49 MCV 90.0 fl (81-99) 08/15/22 04:49 MCH 30.3 pg (28.0-34.0) 08/15/22 04:49 MCHC 33.7 g/dL (30.0-36.0) 08/15/22 04:49 RDW 12.8 % (12.1-15.1) 08/15/22 04:49 Plt Count 317 10^3/cmm (130-400) 08/15/22 04:49 MPV 10.7 fL (7.4-10.4) H 08/15/22 04:49 Neut % (Auto) 56.9 % 08/15/22 04:49 Lymph % (Auto) 29.0 % 08/15/22 04:49 Mckinley % (Auto) 9.7 % 08/15/22 04:49 Eos % (Auto) 2.7 % 08/15/22 04:49 Baso % (Auto) 0.4 % 08/15/22 04:49 Neut # (Auto) 3.86 10^3/uL (1.8-7.7) 08/15/22 04:49 Lymph # (Auto) 2.0 10^3/uL (0.8-4.8) 08/15/22 04:49 Mckinley # (Auto) 0.7 10^3/uL (0.2-0.9) 08/15/22 04:49 Eos # (Auto) 0.2 10^3/uL (0.0-0.8) 08/15/22 04:49 Baso # (Auto) 0.0 10^3/uL (0.0-0.1) 08/15/22 04:49 Nucleated RBC % (auto) 0 % 08/15/22 04:49 Nucleated RBCs # 0.0 /100WBC 08/15/22 04:49 Sodium 136 mmol/L (136-145) 08/15/22 04:49 Potassium 3.8 mmol/L (3.5-5.1) 08/15/22 04:49 Chloride 102 mmol/L (98-107) 08/15/22 04:49 Carbon Dioxide 24 mmol/L (22-29) 08/15/22 04:49 Anion Gap 13.8 (5-19) 08/15/22 04:49 BUN 12 mg/dL (6-20) 08/15/22 04:49 Creatinine 0.6 mg/dL (0.5-0.9) 08/15/22 04:49 GFR Calculation 119.0 mL/min (90-130) 08/15/22 04:49 Glucose 83 mg/dL (65-115) 08/15/22 04:49 Calculated Osmolality 281 mOsm/kg (285-295) L 08/15/22 04:49 Calcium 8.9 mg/dL (8.5-10.5) 08/15/22 04:49 Total Bilirubin 0.2 mg/dL (0.15-1.2) 08/15/22 04:49 AST 36 U/L (0-32) H 08/15/22 04:49 ALT 22 U/L (0-33) 08/15/22 04:49 Alkaline Phosphatase 95 U/L (35-105) 08/15/22 04:49 Total Protein 8.2 g/dL (6.6-8.7) 08/15/22 04:49 Albumin 4.3 g/dL (3.5-5.2) 08/15/22 04:49 Globulin 3.9 g/dL (1.3-4.6) 08/15/22 04:49 Urine Color Yellow (Yellow) 08/15/22 05:20 Urine Appearance Clear (CLEAR) 08/15/22 05:20 Urine pH 6 (5-7) 08/15/22 05:20 Ur Specific [place] 1.015 (1.005-1.030) 08/15/22 05:20 Urine Protein Neg (Negative) 08/15/22 05:20 Urine Glucose (UA) Norm (Normal) 08/15/22 05:20 Urine Ketones Negative (Negative) 08/15/22 05:20 Urine Blood Neg (Negative) 08/15/22 05:20 Urine Nitrate Negative (Negative) 08/15/22 05:20 Urine Bilirubin Neg (Negative) 08/15/22 05:20 Urine Urobilinogen Norm mg/dL (Negative) 08/15/22 05:20 Ur Leukocyte Esterase Negative (Negative) 08/15/22 05:20 Discharge Plan Discharge Patient Disposition: Home Clinical Impression: Paresthesia and pain of extremity, Transaminitis, Bacterial vaginosis Condition: Stable Prescriptions: No Action mupirocin 2 % ointment 1 applic topical BID 21 Days Qty: 22 0RF Rx Instructions: Apply to each nostril using Qtip twice a day sulfamethoxazole-trimethoprim [Bactrim DS] 800-160 mg tablet 1 tab PO BID 10 Days Qty: 20 0RF Discharge Orders: Discharge ED (Routine); Ordered 08/15/22 Ordered By: Aristeo Mauricio Discharge Diet: Usual diet Discharge Activity: Increase activity as tolerated Patient Instructions: Bacterial Vaginosis (ED), Paresthesia (ED) Activity Restrictions/Additional Instructions: Thank you for visiting the emergency department. You were seen and evaluated for arm tingling and associated changes. The exact cause of your symptoms is unclear however does not appear to need inpatient management at this time. Please follow-up with your primary care provider. Establish with a primary care provider if you do not currently have one. You have bacterial vaginosis which will be treated with antibiotics. Return to the emergency department for uncontrolled symptoms, any new neurologic symptoms, or anything else that you are concerned about a feel needs emergency department evaluation. Sign Out Sign Out Data: Patient Sign Out occurred on 08/15/22 at 07:00. Patient's care was discussed, and care was transferred from to Aristeo Mauricio DO. Coding Level of Care Code ED Tube Backer for [place] Fwd Documented by User: Aristeo Mauricio DO 08/15/22 09:25 HPI - General Adult General: Chief complaint: Extremity Injury, Upper Stated complaint: Arm hurts Time Seen by Provider: 08/15/22 04:25 [facility] ED PFSH: Medical History (Updated 08/23/22 @ 00:01 by ELOY Arnett) Anemia Headache STD (female) UTI (urinary tract infection) Surgical History History of tubal ligation Family History Denies family history of Anesthesia complication Bleeding disorder Social History Smoking and tobacco status: current every day smoker Alcohol intake: current History of recent travel: No Course Vital Signs: Vital signs: Vital Signs Temperature 98 F 08/15/22 04:37 Pulse Rate 90 08/15/22 04:37 Respiratory Rate 18 08/15/22 04:37 Blood Pressure 122/86 08/15/22 04:37 Pulse Oximetry 100 08/15/22 04:37 Oxygen Delivery Me thod 08/15/22 04:37 MDM - General Adult Medical Decision Making Care assumed at change of shift venous duplex was negative. Chest x-ray negative. No acute emergent condition present. Wet mount showed evidence of bacterial vaginosis. Patient be treated metronidazole. Follow-up with primary care if symptoms in the arm persist may need further evaluation including potentially advanced imaging or peripheral nerve studies. Medical Records I reviewed the patient's medical records. Lab Data I reviewed the patient's lab results. 08/15/22 04:49 08/15/22 04:49 Radiology Impressions Chest X-Ray 08/15/22 04:58 IMPRESSION: No acute cardiopulmonary abnormality. Venous Duplex 08/15/22 04:58 IMPRESSION: No evidence of deep vein thrombosis. Laboratory Results WBC 6.8 10^3/uL (4.0-10.0) 08/15/22 04:49 RBC 4.29 10^6/uL (4.1-5.3) 08/15/22 04:49 Hgb 13.0 g/dL (11.5-15.3) 08/15/22 04:49 Hct 38.6 % (37.0-47.0) 08/15/22 04:49 MCV 90.0 fl (81-99) 08/15/22 04:49 MCH 30.3 pg (28.0-34.0) 08/15/22 04:49 MCHC 33.7 g/dL (30.0-36.0) 08/15/22 04:49 RDW 12.8 % (12.1-15.1) 08/15/22 04:49 Plt Count 317 10^3/cmm (130-400) 08/15/22 04:49 MPV 10.7 fL (7.4-10.4) H 08/15/22 04:49 Neut % (Auto) 56.9 % 08/15/22 04:49 Lymph % (Auto) 29.0 % 08/15/22 04:49 Mckinley % (Auto) 9.7 % 08/15/22 04:49 Eos % (Auto) 2.7 % 08/15/22 04:49 Baso % (Auto) 0.4 % 08/15/22 04:49 Neut # (Auto) 3.86 10^3/uL (1.8-7.7) 08/15/22 04:49 Lymph # (Auto) 2.0 10^3/uL (0.8-4.8) 08/15/22 04:49 Mckinley # (Auto) 0.7 10^3/uL (0.2-0.9) 08/15/22 04:49 Eos # (Auto) 0.2 10^3/uL (0.0-0.8) 08/15/22 04:49 Baso # (Auto) 0.0 10^3/uL (0.0-0.1) 08/15/22 04:49 Nucleated RBC % (auto) 0 % 08/15/22 04:49 Nucleated RBCs # 0.0 /100WBC 08/15/22 04:49 Sodium 136 mmol/L (136-145) 08/15/22 04:49 Potassium 3.8 mmol/L (3.5-5.1) 08/15/22 04:49 Chloride 102 mmol/L (98-107) 08/15/22 04:49 Carbon Dioxide 24 mmol/L (22-29) 08/15/22 04:49 Anion Gap 13.8 (5-19) 08/15/22 04:49 BUN 12 mg/dL (6-20) 08/15/22 04:49 Creatinine 0.6 mg/dL (0.5-0.9) 08/15/22 04:49 GFR Calculation 119.0 mL/min (90-130) 08/15/22 04:49 Glucose 83 mg/dL (65-115) 08/15/22 04:49 Calculated Osmolality 281 mOsm/kg (285-295) L 08/15/22 04:49 Calcium 8.9 mg/dL (8.5-10.5) 08/15/22 04:49 Total Bilirubin 0.2 mg/dL (0.15-1.2) 08/15/22 04:49 AST 36 U/L (0-32) H 08/15/22 04:49 ALT 22 U/L (0-33) 08/15/22 04:49 Alkaline Phosphatase 95 U/L (35-105) 08/15/22 04:49 Total Protein 8.2 g/dL (6.6-8.7) 08/15/22 04:49 Albumin 4.3 g/dL (3.5-5.2) 08/15/22 04:49 Globulin 3.9 g/dL (1.3-4.6) 08/15/22 04:49 Urine Color Yellow (Yellow) 08/15/22 05:20 Urine Appearance Clear (CLEAR) 08/15/22 05:20 Urine pH 6 (5-7) 08/15/22 05:20 Ur Specific [place] 1.015 (1.005-1.030) 08/15/22 05:20 Urine Protein Neg (Negative) 08/15/22 05:20 Urine Glucose (UA) Norm (Normal) 08/15/22 05:20 Urine Ketones Negative (Negative) 08/15/22 05:20 Urine Blood Neg (Negative) 08/15/22 05:20 Urine Nitrate Negative (Negative) 08/15/22 05:20 Urine Bilirubin Neg (Negative) 08/15/22 05:20 Urine Urobilinogen Norm mg/dL (Negative) 08/15/22 05:20 Ur Leukocyte Esterase Negative (Negative) 08/15/22 05:20 Discharge Plan Discharge Patient Disposition: Home Clinical Impression: Paresthesia and pain of extremity, Transaminitis, Bacterial vaginosis Condition: Stable Prescriptions: No Action mupirocin 2 % ointment 1 applic topical BID 21 Days Qty: 22 0RF Rx Instructions: Apply to each nostril using Qtip twice a day sulfamethoxazole-trimethoprim [Bactrim DS] 800-160 mg tablet 1 tab PO BID 10 Days Qty: 20 0RF Discharge Orders: Discharge ED (Routine); Ordered 08/15/22 Ordered By: Aristeo Mauricio Discharge Diet: Usual diet Discharge Activity: Increase activity as tolerated Patient Instructions: Bacterial Vaginosis (ED), Paresthesia (ED) Activity Restrictions/Additional Instructions: Thank you for visiting the emergency department. You were seen and evaluated for arm tingling and associated changes. The exact cause of your symptoms is unclear however does not appear to need inpatient management at this time. Please follow-up with your primary care provider. Establish with a primary care provider if you do not currently have one. You have bacterial vaginosis which will be treated with antibiotics. Return to the emergency department for uncontrolled symptoms, any new neurologic symptoms, or anything else that you are concerned about a feel needs emergency department evaluation. Sign Out Sign Out Data: Patient Sign Out occurred on 08/15/22 at 07:00. Patient's care was discussed, and care was transferred from to Aristeo Mauricio DO. Coding Level of Care Code ED Tube Backer for Bala Jaffe
--- NOTE | 2022-08-15 04:58 | USR_ITS ---
PROCEDURE INFORMATION: Exam: US Duplex Left Upper Extremity Veins, Limited Exam date and time: 08/15/2022 5:45 AM Age: 27 years old Clinical indication: Pain; Arm, upper and arm, lower and fingers; Left; Additional info: Pain, paresthesias TECHNIQUE: Imaging protocol: Real-time duplex ultrasound of the Left Upper Extremity with 2-D shelton scale, color Doppler flow and spectral waveform analysis with image documentation. Limited exam focused on the left upper extremity veins. COMPARISON: CT neck wo con [id number] 01/27/2021 2:28 AM FINDINGS: Left deep veins: Unremarkable. Axillary and brachial veins are patent throughout without thrombus. Normal compressibility. Visualized internal jugular and subclavian veins are patent. Left superficial veins: Unremarkable. Visualized cephalic and basilic veins are patent without thrombus. Soft tissues: Unremarkable. US/[place] [id number] IMPRESSION: No evidence of deep vein thrombosis.
--- NOTE | 2022-08-15 04:58 | XRR_ITS ---
PROCEDURE INFORMATION: Exam: XR Chest Exam date and time: 08/15/2022 5:02 AM Age: 27 years old Clinical indication: Cough TECHNIQUE: Imaging protocol: Radiologic exam of the chest. Views: 1 view. COMPARISON: CR (CHEST, ) 02/07/2022 9:51 PM FINDINGS: Lungs: The lung parenchyma is clear. Pleural spaces: No pneumothorax. No pleural effusion. Heart/Mediastinum: The cardiomediastinal silhouette is within normal limits. Bones/joints: Unremarkable. XR/XR chest 1V portable [id number] IMPRESSION: No acute cardiopulmonary abnormality.
[2022-08-15 05:04] LABS: Basophils % 0.4 %; Eosinophils # 0.2 10^3/uL (0.0-0.8); Eosinophils % 2.7 %; Hematocrit 38.6 % (37.0-47.0); Mean Corpuscular HGB Conc 33.7 g/dL (30.0-36.0); Mean Corpuscular Hemoglobin 30.3 pg (28.0-34.0); Mean Platelet Volume 10.7 fL (7.4-10.4); Monocytes # 0.7 10^3/uL (0.2-0.9); Monocytes % 9.7 %; Neutrophils # 3.86 10^3/uL (1.8-7.7); Neutrophils % 56.9 %; Nucleated Red Blood Cells % 0 %; Platelet Count 317 10^3/cmm (130-400); Red Blood Count 4.29 10^6/uL (4.1-5.3); Red Cell Distribution Width 12.8 % (12.1-15.1); White Blood Count 6.8 10^3/uL (4.0-10.0)
[2022-08-15 05:15] LABS: Alanine Aminotransferase 22 U/L (0-33); Albumin Level 4.3 g/dL (3.5-5.2); Alkaline Phosphatase 95 U/L (35-105); Anion Gap 13.8 (5-19); Aspartate Amino Transferase 36 U/L (0-32); Blood Urea Nitrogen 12 mg/dL (6-20); Calcium 8.9 mg/dL (8.5-10.5); Carbon Dioxide 24 mmol/L (22-29); Chloride 102 mmol/L (98-107); Globulin 3.9 g/dL (1.3-4.6); Glucose 83 mg/dL (65-115); Osmolality Calculated 281 mOsm/kg (285-295); Potassium 3.8 mmol/L (3.5-5.1); Sodium 136 mmol/L (136-145); Total Bilirubin 0.2 mg/dL (0.15-1.2); Total Protein 8.2 g/dL (6.6-8.7)
[2022-08-15 05:31] LABS: Add Urine Microscopic? NO; Charge for UA Resulting for Rev
[2022-08-15 05:46] LABS: Bilirubin Urine Neg (Negative); Blood Urine Neg (Negative); Glucose Urine UA Norm (Normal); Ketones Urine Negative (Negative); Leukocyte Esterase Urine Negative (Negative); Nitrate Urine Negative (Negative); Protein Urine Neg (Negative); Specific Gravity, Urine 1.015 (1.005-1.030); Urine Appearance Clear (CLEAR); Urine Color Yellow (Yellow); Urobilinogen Urine Norm (Negative); pH Urine 6 (5-7)
== END 2022-08-15 08:00 | disposition home or self-care (01) ==
PROVIDERS: Emergency Medicine; Emergency Provider Family Medicine
DX: R20.2 Paresthesia of skin (principal); M79.603 Pain in arm, unspecified; R74.01 Elevation of levels of liver transaminase levels; N76.0 Acute vaginitis; F17.210 Nicotine dependence, cigarettes, uncomplicated
CPT/HCPCS: 71045; 80053; 81003; 85025; 87210; 87491; 93971; 99284

== ENCOUNTER 2022-08-25 10:05 | Emergency (ER) | payer BC, MEDICAID, SELFPAY ==
[2022-08-25 10:18] VITALS: BP 115/71; PULSE 96; RESP 15; O2SAT 97; BMI 23.5
[2022-08-25 11:14] LABS: Basophils % 0.2 %; Eosinophils % 0.3 %; Hematocrit 40.9 % (37.0-47.0); Hemoglobin 13.1 g/dL (11.5-15.3); Lymphocytes # 0.8 10^3/uL (0.8-4.8); Lymphocytes % 12.1 %; Mean Corpuscular Hemoglobin 29.4 pg (28.0-34.0); Mean Corpuscular Volume 91.9 fl (81-99); Mean Platelet Volume 10.5 fL (7.4-10.4); Monocytes # 0.5 10^3/uL (0.2-0.9); Monocytes % 8.3 %; Neutrophils # 5.03 10^3/uL (1.8-7.7); Neutrophils % 78.6 %; Nucleated Red Blood Cells % 0 %; Platelet Count 274 10^3/cmm (130-400); Red Blood Count 4.45 10^6/uL (4.1-5.3); Red Cell Distribution Width 13.1 % (12.1-15.1); White Blood Count 6.4 10^3/uL (4.0-10.0)
[2022-08-25 11:26] LABS: HCG, Serum Qual Negative (Negative)
[2022-08-25 11:34] LABS: Alanine Aminotransferase 185 U/L (0-33); Albumin Level 4.2 g/dL (3.5-5.2); Alkaline Phosphatase 97 U/L (35-105); Anion Gap 11.8 (5-19); Aspartate Amino Transferase 130 U/L (0-32); Blood Urea Nitrogen 11 mg/dL (6-20); Calcium 8.6 mg/dL (8.5-10.5); Carbon Dioxide 28 mmol/L (22-29); Chloride 98 mmol/L (98-107); Globulin 3.3 g/dL (1.3-4.6); Glomerular Filtration Rate 190.1 mL/min (90-130); Glucose 88 mg/dL (65-115); Lipase 23 U/L (13-60); Osmolality Calculated 277 mOsm/kg (285-295); Potassium 3.8 mmol/L (3.5-5.1); Sodium 134 mmol/L (136-145); Total Bilirubin 0.2 mg/dL (0.15-1.2); Total Protein 7.5 g/dL (6.6-8.7)
== END 2022-08-25 13:14 | disposition left against medical advice (07) ==
PROVIDERS: Physician Assistant; Emergency Provider Family Medicine
DX: Z53.21 Procedure and treatment not carried out due to patient leaving prior to being seen by health care provider (principal)
CPT/HCPCS: 36415; 80053; 83690; 84703; 85025

== ENCOUNTER 2022-12-06 14:06 | Emergency (ER) | payer BC, MEDICAID, SELFPAY ==
[2022-12-06 14:14] VITALS: BP 121/80; PULSE 85; RESP 16; TEMP 36.6; O2SAT 100; BMI 24.3
--- NOTE | 2022-12-06 15:19 | USR_ITS ---
PROCEDURE INFORMATION: Exam: US Pelvis, Transvaginal Exam date and time: 12/06/2022 4:04 PM Age: 27 years old Clinical indication: Pelvic pain; Prior surgery; Surgery date: 6+ months; Surgery type: Tubal LABS AND CLINICAL REPORTS: Last menstrual period start date: 11/15/2022 TECHNIQUE: Imaging protocol: Real-time transvaginal pelvic ultrasound with image documentation. Transvaginal imaging was used for better evaluation of the endometrium, adnexa, and/or cervix. COMPARISON: CT abdomen pelvis w con* [id number] 12/03/2021 8:35 PM FINDINGS: Uterus: Uterus measures 7.6 cm x 4.5 cm x 6.3 cm. Retroflexed uterus. Endometrial thickness 7.2 mm. Mild inhomogeneity of the uterus with diffuse hypervascularity. The cervix is not well visualized. Right ovary/adnexa: Right ovary measures 3.5 cm x 1.7 cm x 3.3 cm. Numerous small peripheral follicles and normal blood flow in the right ovary. Left ovary/adnexa: Left ovary measures 3.4 cm x 1.5 cm x 2.8 cm. Numerous small peripheral follicles and normal blood flow in the left ovary. Intraperitoneal space: Trace free peritoneal fluid. US/US pelv w/transvag [id number] IMPRESSION: 1. Mild inhomogeneity of the uterus with hypervascularity. Pelvic inflammatory disease is not entirely excluded. 2. Numerous peripheral follicles in both ovaries. This can be seen with polycystic ovarian syndrome. Clinical correlation recommended. 3. Trace peritoneal fluid, improved from the CT.
--- NOTE | 2022-12-06 15:20 | ED_ITS ---
HPI - Female Genitourinary General: Chief complaint: Urogenital-Female Stated complaint: lower abd pain Time Seen by Provider: 12/06/22 15:09 Source: patient Mode of arrival: ambulatory History of Present Illness: 27-year-old female who presents to the emergency room with complaints of pelvic discomfort and pain. She started spotting this morning her last period was rather brief she has had a previous tubal ligation. She also been exposed to syphilis currently on antibiotics through the health department. She denies any dysuria urgency or frequency. Pain is improved from previous but still has a little bit of cramping. MD elicited complaint: vaginal bleeding and pelvic pain Onset (ago): hour(s) Severity: moderate Quality of pain: cramping Consistency: constant Vaginal bleeding: scant Exacerbating factors: none Relieving factors: none Associated symptoms: Deny abdominal pain, short of breath, fevers/chills, headache(s), nausea, rash, seizures, syncope, vaginal bleeding, vaginal discharge or weakness Treatment prior to arrival: none Review of Systems Const: Denies: fever(s), chills, body aches, change in appetite, fatigue or malaise ENMT: Denies: throat pain, ear or mastoid pain, nasal discharge or nasal congestion Card: Denies: chest pain or syncope Resp: Denies: dyspnea, productive cough or non-productive cough GI: Denies: abdominal pain or nausea : Denies: flank pain, dysuria, urinary frequency, urinary urgency or vaginal discharge Musc: Denies: neck pain or back pain Skin/Breast: Denies: rash or pruritus Neuro: Denies: headache(s) [facility] ED PFSH: Medical History (Updated 12/06/22 @ 16:48 by Aristeo Mauricio DO) Anemia Headache STD (female) UTI (urinary tract infection) Surgical History History of tubal ligation Family History Denies family history of Anesthesia complication Bleeding disorder Social History Smoking and tobacco status: current every day smoker Alcohol intake: current Physical Exam Const: GENERAL APPEARANCE: cooperative and comfortable ORIENTATION/CONSCIOUSNESS: Yes awake, Yes oriented to person, Yes oriented to place and Yes oriented to time HENMT: COMMON NORMALS: normocephalic, atraumatic and hearing grossly normal bilaterally HEAD & SCALP: normocephalic and atraumatic Resp: COMMON NORMALS: normal respiratory effort, No retractions, No use of accessory muscles and clear to auscultation bilaterally AUSCULTATION: clear to auscultation bilaterally Cardio: COMMON NORMALS: regular rate, regular rhythm and No murmurs present (Cardio) RATE: regular rate RHYTHM: regular rhythm GI: COMMON NORMALS: Soft to palpation and No hepatosplenomegaly present AUSCULTATION: Yes normoactive bowel sounds PALPATION: Yes Soft to palpation, No Tenderness to palpation present (GI), No Guarding due to palpation present (GI) and Yes No hepatosplenomegaly present : SPECULUM EXAM - VAGINA: No vaginal bleeding OB/EXTERNAL & SPECULUM: No vaginal bleeding Extremity: COMMON NORMALS: normal to inspection, capillary refill normal, no clubbing, cyanosis or edema, no calf tenderness and no pedal edema Neuro: SENSORIUM/ORIENTATION: Yes oriented to person, Yes oriented to place and Yes oriented to time Skin: COMMON NORMALS: no rashes or lesions noted GENERAL SKIN EXAM: no rashes or lesions noted Course Vital Signs: Vital signs: Vital Signs Temperature 97.8 F 12/06/22 14:14 Pulse Rate 85 12/06/22 14:14 Respiratory Rate 16 12/06/22 14:14 Blood Pressure 121/80 12/06/22 14:14 Pulse Oximetry 100 12/06/22 14:14 Oxygen Delivery Me thod Room Air 12/06/22 14:14 MDM - Female Medical Decision Making Serum qualitative beta hCG is only 1. Pelvic ultrasound shows polycystic ovaries as well as uterine fibroids. We will discharge patient home she cu rrently is being treated for syphilis exposure she was recently seen at [facility] and had STD screening because of potential exposure from a partner. Recommend she use diclofenac as needed and follow-up with her primary care doctor if not improving or return to the emergency room Medical Records I reviewed the patient's medical records. Lab Data I reviewed the patient's lab results. 12/06/22 15:47 12/06/22 15:47 Radiology Impressions Pelvic/Transvag US 12/06/22 15:19 IMPRESSION: 1. Mild inhomogeneity of the uterus with hypervascularity. Pelvic inflammatory disease is not entirely excluded. 2. Numerous peripheral follicles in both ovaries. This can be seen with polycystic ovarian syndrome. Clinical correlation recommended. 3. Trace peritoneal fluid, improved from the CT. Laboratory Results WBC 13.8 10^3/uL (4.0-10.0) H 12/06/22 15:47 RBC 5.11 10^6/uL (4.1-5.3) 12/06/22 15:47 Hgb 14.6 g/dL (11.5-15.3) 12/06/22 15:47 Hct 45.7 % (37.0-47.0) 12/06/22 15:47 MCV 89.4 fl (81-99) 12/06/22 15:47 MCH 28.6 pg (28.0-34.0) 12/06/22 15:47 MCHC 31.9 g/dL (30.0-36.0) 12/06/22 15:47 RDW 13.0 % (12.1-15.1) 12/06/22 15:47 Plt Count 324 10^3/cmm (130-400) 12/06/22 15:47 MPV 10.8 fL (7.4-10.4) H 12/06/22 15:47 Neut % (Auto) 78.4 % 12/06/22 15:47 Lymph % (Auto) 14.2 % 12/06/22 15:47 [place] % (Auto) 5.5 % 12/06/22 15:47 Eos % (Auto) 1.2 % 12/06/22 15:47 Baso % (Auto) 0.2 % 12/06/22 15:47 Neut # (Auto) 10.81 10^3/uL (1.8-7.7) H 12/06/22 15:47 Lymph # (Auto) 2.0 10^3/uL (0.8-4.8) 12/06/22 15:47 [place] # (Auto) 0.8 10^3/uL (0.2-0.9) 12/06/22 15:47 Eos # (Auto) 0.2 10^3/uL (0.0-0.8) 12/06/22 15:47 Baso # (Auto) 0.0 10^3/uL (0.0-0.1) 12/06/22 15:47 Nucleated RBC % (auto) 0 % 12/06/22 15:47 Nucleated RBCs # 0.0 /100WBC 12/06/22 15:47 Sodium 137 mmol/L (136-145) 12/06/22 15:47 Potassium 3.6 mmol/L (3.5-5.1) 12/06/22 15:47 Chloride 101 mmol/L (98-107) 12/06/22 15:47 Carbon Dioxide 28 mmol/L (22-29) 12/06/22 15:47 Anion Gap 11.6 (5-19) 12/06/22 15:47 BUN 10 mg/dL (6-20) 12/06/22 15:47 Creatinine 0.5 mg/dL (0.5-0.9) 12/06/22 15:47 GFR Calculation 146.9 mL/min (90-130) H 12/06/22 15:47 Glucose 85 mg/dL (65-115) 12/06/22 15:47 Calculated Osmolality 282 mOsm/kg (285-295) L 12/06/22 15:47 Calcium 8.8 mg/dL (8.5-10.5) 12/06/22 15:47 Total Bilirubin 0.3 mg/dL (0.15-1.2) 12/06/22 15:47 AST 17 U/L (0-32) 12/06/22 15:47 ALT 19 U/L (0-33) 12/06/22 15:47 Alkaline Phosphatase 75 U/L (35-105) 12/06/22 15:47 Total Protein 7.5 g/dL (6.6-8.7) 12/06/22 15:47 Albumin 4.2 g/dL (3.5-5.2) 12/06/22 15:47 Globulin 3.3 g/dL (1.3-4.6) 12/06/22 15:47 Ser , Semi-Qnt 1.00 mIU/mL 12/06/22 15:47 Urine Color Yellow (Yellow) 12/06/22 16:45 Urine Appearance Cloudy (CLEAR) A 12/06/22 16:45 Urine pH 9 (5-7) H 12/06/22 16:45 Ur Specific [place] 1.015 (1.005-1.030) 12/06/22 16:45 Urine Protein Neg (Negative) 12/06/22 16:45 Urine Glucose (UA) Norm (Normal) 12/06/22 16:45 Urine Ketones Negative (Negative) 12/06/22 16:45 Urine Blood Neg (Negative) 12/06/22 16:45 Urine Nitrate Negative (Negative) 12/06/22 16:45 Urine Bilirubin Neg (Negative) 12/06/22 16:45 Prot Sulfosalicylic Acd Negative (Negative) 12/06/22 16:45 Urine Urobilinogen Norm mg/dL (Negative) 12/06/22 16:45 Ur Leukocyte Esterase Negative (Negative) 12/06/22 16:45 Urine RBC None /hpf (0-2) 12/06/22 16:45 Urine WBC None /hpf (0-5) 12/06/22 16:45 Ur Squamous Epith Cells 0-4 /hpf (0-5) H 12/06/22 16:45 Amorphous Sediment 2+ /hpf 12/06/22 16:45 Urine Bacteria Trace /hpf (NONE) 12/06/22 16:45 Discharge Plan Discharge Patient Disposition: Home Clinical Impression: Dysmenorrhea Condition: Stable Prescriptions: New ondansetron HCl 4 mg tablet 4 mg PO Q6H PRN (Reason: nausea and vomiting) Qty: 20 0RF diclofenac sodium 75 mg tablet,delayed release (DR/EC) 75 mg PO Q12H PRN (Reason: pain) Qty: 20 0RF No Action mupirocin 2 % ointment 1 applic topical BID 21 Days Qty: 22 0RF Rx Instructions: Apply to each nostril using Qtip twice a day sulfamethoxazole-trimethoprim [Bactrim DS] 800-160 mg tablet 1 tab PO BID 10 Days Qty: 20 0RF Discharge Orders: Discharge ED (Routine); Ordered 12/06/22 Ordered By: Aristeo Mauricio Discharge Diet: Usual diet Discharge Activity: Resume usual activity Patient Instructions: Abdominal Pain (ED), Opioid Safety, Pain Management Activity Restrictions/Additional Instructions: You were seen today for pelvic pain with some cramping and spotting. Your test was negative the ultrasound shows uterine fibroids and polycystic ovaries. Recommend using anti-inflammatories as needed and follow-up with your primary care doctor. Coding Level of Care Code ED Practice Nurse for Bala Jaffe
[2022-12-06 16:04] LABS: Basophils % 0.2 %; Eosinophils # 0.2 10^3/uL (0.0-0.8); Eosinophils % 1.2 %; Hematocrit 45.7 % (37.0-47.0); Hemoglobin 14.6 g/dL (11.5-15.3); Lymphocytes % 14.2 %; Mean Corpuscular HGB Conc 31.9 g/dL (30.0-36.0); Mean Corpuscular Hemoglobin 28.6 pg (28.0-34.0); Mean Corpuscular Volume 89.4 fl (81-99); Mean Platelet Volume 10.8 fL (7.4-10.4); Monocytes # 0.8 10^3/uL (0.2-0.9); Monocytes % 5.5 %; Neutrophils # 10.81 10^3/uL (1.8-7.7); Neutrophils % 78.4 %; Nucleated Red Blood Cells % 0 %; Platelet Count 324 10^3/cmm (130-400); Red Blood Count 5.11 10^6/uL (4.1-5.3); White Blood Count 13.8 10^3/uL (4.0-10.0)
[2022-12-06 16:33] LABS: Alanine Aminotransferase 19 U/L (0-33); Albumin Level 4.2 g/dL (3.5-5.2); Alkaline Phosphatase 75 U/L (35-105); Anion Gap 11.6 (5-19); Aspartate Amino Transferase 17 U/L (0-32); Blood Urea Nitrogen 10 mg/dL (6-20); Calcium 8.8 mg/dL (8.5-10.5); Carbon Dioxide 28 mmol/L (22-29); Chloride 101 mmol/L (98-107); Creatinine Clr Calc Pharmacy 172.1078; Globulin 3.3 g/dL (1.3-4.6); Glomerular Filtration Rate 146.9 mL/min (90-130); Glucose 85 mg/dL (65-115); Osmolality Calculated 282 mOsm/kg (285-295); Potassium 3.6 mmol/L (3.5-5.1); Sodium 137 mmol/L (136-145); Total Bilirubin 0.3 mg/dL (0.15-1.2); Total Protein 7.5 g/dL (6.6-8.7)
[2022-12-06 17:00] VITALS: PULSE 85; RESP 16; O2SAT 96
[2022-12-06 17:09] LABS: Add Urine Microscopic? YES; Bacteria Urine TRACE /hpf; Bilirubin Urine Neg (Negative); Blood Urine Neg (Negative); Glucose Urine UA Norm (Normal); Ketones Urine Negative (Negative); Leukocyte Esterase Urine Negative (Negative); Nitrate Urine Negative (Negative); Protein Urine Neg (Negative); Specific Gravity, Urine 1.015 (1.005-1.030); Squamous Epithelial Cell Urine 0-4 /hpf (0-5); Sulfosalicylic Acid Urine Negative (Negative); Urine Appearance Cloudy (CLEAR); Urine Color Yellow (Yellow); Urobilinogen Urine Norm (Negative); pH Urine 9 (5-7)
[2022-12-06 17:10] LABS: Add Urine Culture? No; Amorphous Sediment Urine 2+ /hpf
[2022-12-06 17:44] VITALS: PULSE 85; RESP 16; O2SAT 96
--- NOTE | 2022-12-18 10:23 | DCPLANNER ---
Addendum entered by Alessia Wylie 01/09/23 10:12: Patient had a follow up appointment scheduled with [facility] with Dr. Araujo - patient did not attend appointment. Original Note: TCM called patient due to no primary care physician - a followup appointment was scheduled for patient for , January 08, 2023 at 1:[address] Araujo at [facility]. Patient is aware of appointment.
== END 2022-12-06 17:15 | disposition home or self-care (01) ==
PROVIDERS: Emergency Provider Family Medicine
DX: N94.6 Dysmenorrhea, unspecified (principal); F17.210 Nicotine dependence, cigarettes, uncomplicated
CPT/HCPCS: 76830; 76856; 80053; 81001; 84702; 85025; 99284

== ENCOUNTER 2022-12-26 22:08 | Emergency (ER) | payer BC, MEDICAID, SELFPAY ==
[2022-12-26 22:13] VITALS: BP 111/65; PULSE 92; RESP 18; TEMP 36.6; O2SAT 99; BMI 23.5
--- NOTE | 2022-12-26 23:09 | ED_ITS ---
HPI - Dental/Oral General: Chief complaint: Dental/Oral Stated complaint: sore tooth/jaw, throat, ear right side Time Seen by Provider: 12/26/22 22:14 History of Present Illness: Patient is in for complaints of right upper jaw pain. She reports that she has numerous broken teeth and cavities. She reports that she is trying to work towards getting her teeth pulled. She states that today approximately 4 hours ago she started having right upper jaw pain that is radiating to her ear. She denies fever or chills. She denies any possibility of stating that she has had a tubal ligation. Associated symptoms: Denies fever(s) Review of Systems Const: Denies: fever(s) or chills ENMT: Reports: dental pain Card: Denies: chest pain or palpitations Resp: Denies: dyspnea, productive cough or non-productive cough GI: Reports: nausea; Denies: abdominal pain or vomiting PFS ED PFSH: Medical History Anemia Headache STD (female) UTI (urinary tract infection) Surgical History History of tubal ligation Family History Denies family history of Anesthesia complication Bleeding disorder Social History Smoking and tobacco status: current every day smoker Alcohol intake: current Physical Exam Const: COMMON NORMALS: no acute distress, patient oriented x3 and alert HENMT: OTHER: Patient has poor dentition. Numerous dental caries and broken teeth. Right upper jaw there is erythema to the surrounding gingiva and broken teeth noted. There is no definitive drainable abscess appreciated. Neck/C-Spine: COMMON NORMALS: full ROM, supple and no JVD Resp: COMMON NORMALS: normal respiratory effort, No use of accessory muscles and clear to auscultation bilaterally AUSCULTATION: clear to auscultation bilaterally Cardio: COMMON NORMALS: no JVD, regular rate, regular rhythm, S1 normal heart sound present, S2 normal heart sound present and No murmurs present (Cardio) RATE: regular rate RHYTHM: regular rhythm HEART SOUNDS: S1 normal heart sound present and S2 normal heart sound present Neuro: COMMON NORMALS: patient oriented x3 SENSORIUM/ORIENTATION: Yes alert Course Vital Signs: Vital signs: Vital Signs Temperature 98 F 12/26/22 22:13 Pulse Rate 92 12/26/22 22:13 Respiratory Rate 18 12/26/22 22:13 Blood Pressure 111/65 12/26/22 22:13 Pulse Oximetry 99 12/26/22 22:13 MDM - Dental/Oral Medical Decision Making Considered dental abscess, gingival infection, dental infection Patient given Toradol for pain and Zofran for nausea and here along with first dose of antibiotic. Patient is allergic to penicillin start patient on clindamycin antibiotic to treat dental infection. Discussed conservative care at home. Discussed proper use of antibiotic. Follow-up with dental next week. Advised patient that this will help to take care of the bacteria however patient will need to have the problem fixed which is the poor dentition. Patient verbalizes understanding. Return to the ER for any new or worsening symptoms Discharge Plan Discharge Patient Disposition: Home Clinical Impression: Dental caries, Dental infection Condition: Stable Prescriptions: New clindamycin HCl 300 mg capsule 300 mg PO TID 10 Days Qty: 30 0RF No Action mupirocin 2 % ointment 1 applic topical BID 21 Days Qty: 22 0RF Rx Instructions: Apply to each nostril using Qtip twice a day sulfamethoxazole-trimethoprim [Bactrim DS] 800-160 mg tablet 1 tab PO BID 10 Days Qty: 20 0RF ondansetron HCl 4 mg tablet 4 mg PO Q6H PRN (Reason: nausea and vomiting) Qty: 20 0RF diclofenac sodium 75 mg tablet,delayed release (DR/EC) 75 mg PO Q12H PRN (Reason: pain) Qty: 20 0RF Discharge Orders: Discharge ED (Routine); Ordered 12/26/22 Ordered By: Sonja Hernandez Discharge Diet: Usual diet Discharge Activity: Increase activity as tolerated Patient Instructions: Dental Abscess (ED) Activity Restrictions/Additional Instructions: Your first dose of antibiotic was given in ER tonight. Start prescription medication tomorrow and take as directed through the entire course. Rinse mouth with salt water couple of times a day. Follow-up with dental next week for reevaluation and determination of further plan of care. Return to the ER as needed for new or worsening symptoms Coding Level of Care Code ED Yard Truck Driver for Bala Jaffe
[2022-12-26] MEDS: clindamycin 150 mg Capsule 300 MG PO (23:20)
[2022-12-26] MEDS: ketorolac 60 mg/2 mL INJ IM (23:20)
[2022-12-26] MEDS: ondansetron 4 MG Tablet PO (23:20)
--- NOTE | 2023-01-02 10:13 | DCPLANNER ---
manager leadership development was triggered to call patient due to no primary care physician. At patients last visit, a follow up appointment was scheduled for 01.08.[address] arce to establish care.
== END 2022-12-26 23:27 | disposition home or self-care (01) ==
PROVIDERS: Emergency Provider Nurse Practitioner Family
DX: K02.9 Dental caries, unspecified (principal); K04.7 Periapical abscess without sinus; F17.210 Nicotine dependence, cigarettes, uncomplicated
CPT/HCPCS: 96372; 99284; J1885; Q0162

== ENCOUNTER 2023-03-18 15:45 | Emergency (ER) | payer BC, MEDICAID, SELFPAY ==
[2023-03-18 16:29] VITALS: BP 119/81; PULSE 80; RESP 18; TEMP 36.5; O2SAT 97; BMI 23.5
[2023-03-18 16:48] LABS: Basophils % 0.5 %; Eosinophils # 0.2 10^3/uL (0.0-0.8); Eosinophils % 2.1 %; Hematocrit 37.7 % (37.0-47.0); Hemoglobin 12.3 g/dL (11.5-15.3); Lymphocytes # 1.6 10^3/uL (0.8-4.8); Lymphocytes % 18.3 %; Mean Corpuscular HGB Conc 32.6 g/dL (30.0-36.0); Mean Corpuscular Hemoglobin 30.3 pg (28.0-34.0); Mean Corpuscular Volume 92.9 fl (81-99); Mean Platelet Volume 10.8 fL (7.4-10.4); Monocytes # 0.7 10^3/uL (0.2-0.9); Monocytes % 7.7 %; Neutrophils # 6.08 10^3/uL (1.8-7.7); Neutrophils % 70.9 %; Nucleated Red Blood Cells % 0 %; Platelet Count 264 10^3/cmm (130-400); Red Blood Count 4.06 10^6/uL (4.1-5.3); Red Cell Distribution Width 12.4 % (12.1-15.1); White Blood Count 8.6 10^3/uL (4.0-10.0)
[2023-03-18 17:01] LABS: HCG, Serum Qual Negative (Negative)
[2023-03-18 17:09] LABS: Alanine Aminotransferase 8 U/L (0-33); Albumin Level 3.9 g/dL (3.5-5.2); Alkaline Phosphatase 93 U/L (35-105); Anion Gap 12.5 (5-19); Aspartate Amino Transferase 12 U/L (0-32); Blood Urea Nitrogen 8 mg/dL (6-20); Calcium 9.2 mg/dL (8.5-10.5); Carbon Dioxide 27 mmol/L (22-29); Chloride 102 mmol/L (98-107); Globulin 3.6 g/dL (1.3-4.6); Glomerular Filtration Rate 146.9 mL/min (90-130); Glucose 79 mg/dL (65-115); Lipase 16 U/L (13-60); Osmolality Calculated 283 mOsm/kg (285-295); Potassium 3.5 mmol/L (3.5-5.1); Sodium 138 mmol/L (136-145); Total Bilirubin 0.2 mg/dL (0.15-1.2); Total Protein 7.5 g/dL (6.6-8.7)
--- NOTE | 2023-03-20 12:12 | DCPLANNER ---
assistant customer service manager was triggered to call patient due to no primary care physician - patient sees Dr. Araujo.
== END 2023-03-18 19:43 | disposition left against medical advice (07) ==
LOC: ER 15:50
PROVIDERS: Physician Assistant; Emergency Provider Family Medicine; PCP Family Medicine
DX: Z53.21 Procedure and treatment not carried out due to patient leaving prior to being seen by health care provider (principal)
CPT/HCPCS: 36415; 80053; 83690; 84703; 85025; 99283

== ENCOUNTER 2023-11-17 04:53 | Emergency (ER) | payer BC, MEDICAID, SELFPAY ==
[2023-11-17 04:56] VITALS: BP 167/104; PULSE 61; RESP 19; TEMP 36.5; O2SAT 100
--- NOTE | 2023-11-17 04:57 | ECG_ITS ---
[facility] Test Date: 2023-11-17 Pat Name: Lexi Richmond Department: Room: Gender: Female Insurance Instructor: : 1995 Requested By: Prieto Schmitt Order Number: [id number] Alston MD: Armando Martinez M.D. Measurements Intervals [place] Rate: 60 P: 79 OK: 106 QRS: 87 QRSD: 97 T: 73 QT: 439 QTc: 440 Interpretive Statements SINUS RHYTHM WITH SHORT OK INTERVAL POSSIBLE RIGHT VENTRICULAR CONDUCTION DELAY [RSR (QR) IN V1/V2] Compared to ECG 12/27/2020 00:24:51 Short OK interval now present T-wave abnormality no longer present Electronically Signed On 11-17-2023 12:28:44 CDT by Armando Martinez M.D. [email or web address] [id number]
--- NOTE | 2023-11-17 04:57 | XRR_ITS ---
PROCEDURE INFORMATION: Exam: XR Chest Exam date and time: 11/17/2023 5:09 AM Age: 28 years old Clinical indication: Shortness of breath; Additional info: Dyspnea TECHNIQUE: Imaging protocol: Radiologic exam of the chest. Views: 1 view. COMPARISON: CR XR chest 1V portable [id number] 08/15/2022 5:02 AM FINDINGS: Lungs: Unremarkable. No consolidation. Pleural spaces: Unremarkable. No pleural effusion. No pneumothorax. Heart/Mediastinum: Unremarkable. No cardiomegaly. Bones/joints: Unremarkable. XR/XR chest 1V portable [id number] IMPRESSION: No acute findings.
--- NOTE | 2023-11-17 05:00 | W.ED.SOB ---
HPI - SOB/Dyspnea General: Chief Complaint: Shortness of Breath/Dyspnea Stated Complaint: SOB Time Seen by Provider: 11/17/23 04:57 History of Present Illness: HPI Narrative: 28-year-old female presents to the emergency department via personal vehicle she is companied by 2 men who states that the patient is having an asthma attack. Patient does appear to be breathing normal upon arrival to the emergency department she does not appear in any acute distress. She does have multiple bruises to her bilateral lower extremities. She denies chest pain dizziness or lightheaded feeling. She denies nausea or vomiting. She denies fevers chills or night sweats. It does not appear that she has a documented history of asthma. Review of Systems General: Reports: 10 or more systems reviewed and unremarkable except in HPI and below Resp: Reports: dyspnea; Denies: non-productive cough PFSH ED PFSH: Medical History (Updated 11/17/23 @ 05:59 by Prieto Schmitt MD) Psychiatric care STD (female) UTI (urinary tract infection) Headache Anemia Surgical History History of tubal ligation Family History Denies family history of Anesthesia complication Bleeding disorder Social History Smoking and tobacco/nicotine status: current every day tobacco/nicotine user Alcohol intake: current Physical Exam Narrative: EXAM NARRATIVE: Constitutional: the patient appears well nourished and of normal development. Vital signs as documented. No acute distress at present. Alert and oriented-to person, place, time and situation. Head, eyes, ears, nose, mouth, throat: Normocephalic, atraumatic. Pupils-equal, round, reactive to light. No scleral icterus. Normal-appearing external ears. Normal appearing nasal turbinates, no drainage. No obvious oral lesions, posterior oropharynx without erythema or exudates. Neck: Supple, trachea is midline, no lymphadenopathy, no jugular venous distension, thyromegaly, or carotid bruits. Carotid upstrokes are brisk bilaterally. Lungs: clear to auscultation to all lung malone. Symmetrical rise and fall of chest, no obvious signs of increased work of breathing at present. Cardiac: Regular rate and rhythm, positive S1, S2. No murmurs, rubs or gallops that I can appreciate Abdomen: Soft, non-tender to palpation, normal active bowel sounds to all quadrants. No palpable masses, no organomegaly and abdominal bruits. Extremities: 2+ pulses in the upper extremities that are equal bilaterally, 2+ pulses in the lower extremities that are equal bilaterally. Non-edematous. Moves all extremities well, sensation to all extremities are noted. Skin: Warm, dry, intact. Patient has multiple bruises to the bilateral lower extremities at various stages of healing. Course Vital Signs: Vital signs: Vital Signs Temperature 97.7 F 11/17/23 04:56 Pulse Rate 61 11/17/23 04:56 Respiratory Rate 19 H 11/17/23 04:56 Blood Pressure 167/104 11/17/23 04:56 Pulse Oximetry 100 11/17/23 04:56 Oxygen Delivery Me thod Room Air 11/17/23 04:56 MDM - SOB/Dyspnea Medical Decision Making Physical exam completed and documented I did obtain a CBC and a urinalysis as well as urine drug screen which essentially demonstrated positive for marijuana and amphetamine. Patient's potassium was low at 3.1 and I did order potassium replacement. Medical Records I reviewed the patient's medical records. Lab Data I reviewed the patient's lab results. 11/17/23 04:56 11/17/23 04:56 Labs/Radiology: Laboratory Results WBC 6.32 10^3/uL (3.29-11.43) 11/17/23 04:56 RBC 4.13 10^6/uL (3.85-5.65) 11/17/23 04:56 Hgb 12.80 g/dL (11.27-16.99) 11/17/23 04:56 Hct 37.6 % (36-47) 11/17/23 04:56 MCV 91.0 fl (85-98) 11/17/23 04:56 MCH 31.0 pg (27-33) 11/17/23 04:56 MCHC 34.0 g/dL (30-55) 11/17/23 04:56 RDW 12.4 % (12.1-15.1) 11/17/23 04:56 Plt Count 252 10^3/cmm (157-399) 11/17/23 04:56 MPV 10.4 fL (7.4-10.4) 11/17/23 04:56 Neut % (Auto) 56.0 % 11/17/23 04:56 Lymph % (Auto) 30.4 % 11/17/23 04:56 [place] % (Auto) 11.2 % 11/17/23 04:56 Eos % (Auto) 1.6 % 11/17/23 04:56 Baso % (Auto) 0.5 % 11/17/23 04:56 Neut # (Auto) 3.54 10^3/uL (1.8-7.7) 11/17/23 04:56 Lymph # (Auto) 1.9 10^3/uL (0.8-4.8) 11/17/23 04:56 [place] # (Auto) 0.7 10^3/uL (0.2-0.9) 11/17/23 04:56 Eos # (Auto) 0.1 10^3/uL (0.0-0.8) 11/17/23 04:56 Baso # (Auto) 0.0 10^3/uL (0.0-0.1) 11/17/23 04:56 Nucleated RBC % (auto) 0 % 11/17/23 04:56 Nucleated RBCs # 0.0 /100WBC 11/17/23 04:56 Sodium 138 mmol/L (136-145) 11/17/23 04:56 Potassium 3.1 mmol/L (3.5-5.1) L 11/17/23 04:56 Chloride 102 mmol/L (98-107) 11/17/23 04:56 Carbon Dioxide 23 mmol/L (22-29) 11/17/23 04:56 Anion Gap 16.1 (5-19) 11/17/23 04:56 BUN 11 mg/dL (6-20) 11/17/23 04:56 Creatinine 0.5 mg/dL (0.5-0.9) 11/17/23 04:56 GFR Calculation 145.9 mL/min (90-130) H 11/17/23 04:56 Glucose 91 mg/dL (65-115) 11/17/23 04:56 Calculated Osmolality 285 mOsm/kg (285-295) 11/17/23 04:56 Calcium 9.7 mg/dL (8.5-10.5) 11/17/23 04:56 Total Bilirubin 0.8 mg/dL (0.15-1.2) 11/17/23 04:56 AST 15 U/L (0-32) 11/17/23 04:56 ALT 12 U/L (0-33) 11/17/23 04:56 Alkaline Phosphatase 71 U/L (35-105) 11/17/23 04:56 NT-Pro-B Natriuret Pep < 36 pg/mL (0-125) 11/17/23 04:56 Total Protein 8.0 g/dL (6.6-8.7) 11/17/23 04:56 Albumin 4.6 g/dL (3.5-5.2) 11/17/23 04:56 Globulin 3.4 g/dL (1.3-4.6) 11/17/23 04:56 HCG, Qual Negative (Negative) 11/17/23 05:10 Urine Color Light yellow (Yellow) 11/17/23 05:10 Urine Appearance Cloudy (CLEAR) A 11/17/23 05:10 Urine pH 7 (5-7) 11/17/23 05:10 Ur Specific [place] 1.015 (1.005-1.030) 11/17/23 05:10 Urine Protein Neg (Negative) 11/17/23 05:10 Urine Glucose (UA) Norm (Normal) 11/17/23 05:10 Urine Ketones Negative (Negative) 11/17/23 05:10 Urine Blood Neg (Negative) 11/17/23 05:10 Urine Nitrate Negative (Negative) 11/17/23 05:10 Urine Bilirubin Neg (Negative) 11/17/23 05:10 Urine Urobilinogen Neg mg/dL (Negative) 11/17/23 05:10 Ur Leukocyte Esterase Negative (Negative) 11/17/23 05:10 Urine RBC 0-4 /hpf (0-2) H 11/17/23 05:10 Urine WBC 5-10 /hpf (0-5) H 11/17/23 05:10 Ur Squamous Epith Cells 0-4 /hpf (0-5) H 11/17/23 05:10 Amorphous Sediment 1+ /hpf 11/17/23 05:10 Urine Bacteria 4+ /hpf (NONE) H 11/17/23 05:10 Urine Mucus 1+ /hpf 11/17/23 05:10 Urine Opiates Screen Negative ng/mL (Negative) 11/17/23 05:10 Ur Barbiturates Screen Negative ng/mL (Negative) 11/17/23 05:10 Ur Phencyclidine Scrn Negative ng/mL (Negative) 11/17/23 05:10 Ur Amphetamines Screen Positive ng/mL (Negative) H 11/17/23 05:10 U Benzodiazepines Scrn Negative ng/mL (Negative) 11/17/23 05:10 Urine Cocaine Screen Negative ng/mL (Negative) 11/17/23 05:10 U Marijuana (THC) Screen Positive ng/mL (Negative) H 11/17/23 05:10 All radiology interpretation(s) finalized by discharge EKG Data EKG 1: Interpretation: Twelve-lead EKG obtained at 0 457 reviewed at 0 457 demonstrates sinus rhythm, ventricular rate 60, NM interval 106, QRS duration 97, QT 439 QTc 439, no ST elevation or depression to demonstrate acute ischemia or infarction at present. Discharge Plan Discharge Patient Disposition: Home Clinical Impression: Bronchitis, Methamphetamine abuse Condition: Stable Prescriptions: No Action mupirocin 2 % ointment 1 applic topical BID 21 Days Qty: 22 0RF Rx Instructions: Apply to each nostril using Qtip twice a day sulfamethoxazole-trimethoprim [Bactrim DS] 800-160 mg tablet 1 tab PO BID 10 Days Qty: 20 0RF ondansetron HCl 4 mg tablet 4 mg PO Q6H PRN (Reason: nausea and vomiting) Qty: 20 0RF diclofenac sodium 75 mg tablet,delayed release (DR/EC) 75 mg PO Q12H PRN (Reason: pain) Qty: 20 0RF Discharge Orders: Discharge ED (Routine); Ordered 11/17/23 Ordered By: Prieto Schmitt Referrals: Annika Araujo DO [Primary Care Provider] - Discharge Diet: Usual diet Discharge Activity: Resume usual activity Patient Instructions: Opioid Safety, Pain Management Activity Restrictions/Additional Instructions: Activity Restrictions/Additional Instructions: Thank you for choosing [facility] for your healthcare needs today. Please realize that you were seen in the Emergency Department and that we are providing you with an emergency medical screening exam and this may not be a complete and all inclusive of all the testing and or medical work-up that you may need to determine your ailment or severity of your illness. It is very important that you follow-up as instructed with your Primary care provider or Specialist for additional evaluation and to discuss your medical treatment plan. Coding Level of Care Code ED Mold Sheet Cleaner for Bala Jaffe
[2023-11-17 05:04] LABS: Basophils % 0.5 %; Eosinophils # 0.1 10^3/uL (0.0-0.8); Eosinophils % 1.6 %; Hematocrit 37.6 % (36-47); Lymphocytes # 1.9 10^3/uL (0.8-4.8); Lymphocytes % 30.4 %; Mean Platelet Volume 10.4 fL (7.4-10.4); Monocytes # 0.7 10^3/uL (0.2-0.9); Monocytes % 11.2 %; Neutrophils # 3.54 10^3/uL (1.8-7.7); Nucleated Red Blood Cells % 0 %; Platelet Count 252 10^3/cmm (157-399); Red Blood Count 4.13 10^6/uL (3.85-5.65); Red Cell Distribution Width 12.4 % (12.1-15.1); White Blood Count 6.32 10^3/uL (3.29-11.43)
[2023-11-17 05:14] LABS: HCG Qualitative Urine. Negative (Negative)
[2023-11-17] MEDS: methylPREDNISolone sod succ 125 mg/2 mL INJ 60 MG IVP (05:16)
[2023-11-17 05:21] LABS: Amphetamines Screen Urine Positive (Negative); Barbiturates Screen Urine Negative (Negative); Benzodiazepines Screen Urine Negative (Negative); Cocaine Screen Urine Negative (Negative); Opiate Screen Urine Negative (Negative); PCP Screen Urine Negative (Negative); THC Screen Urine Positive (Negative)
[2023-11-17 05:23] LABS: Add Urine Microscopic? YES; Amorphous Sediment Urine 1+ /hpf; Bacteria Urine 4+ /hpf; Bilirubin Urine Neg (Negative); Blood Urine Neg (Negative); Glucose Urine UA Norm (Normal); Ketones Urine Negative (Negative); Leukocyte Esterase Urine Negative (Negative); Mucus Urine 1+ /hpf; Nitrate Urine Negative (Negative); Protein Urine Neg (Negative); RBC Urine 0-4 /hpf (0-2); Specific Gravity, Urine 1.015 (1.005-1.030); Squamous Epithelial Cell Urine 0-4 /hpf (0-5); Urine Appearance Cloudy (CLEAR); Urine Color Light yellow (Yellow); Urobilinogen Urine Neg (Negative); pH Urine 7 (5-7)
[2023-11-17 05:24] LABS: Add Urine Culture? Yes
[2023-11-17 05:34] LABS: Alanine Aminotransferase 12 U/L (0-33); Albumin Level 4.6 g/dL (3.5-5.2); Alkaline Phosphatase 71 U/L (35-105); Anion Gap 16.1 (5-19); Aspartate Amino Transferase 15 U/L (0-32); Blood Urea Nitrogen 11 mg/dL (6-20); Calcium 9.7 mg/dL (8.5-10.5); Carbon Dioxide 23 mmol/L (22-29); Chloride 102 mmol/L (98-107); Creatinine Clr Calc Pharmacy 166.7668; Globulin 3.4 g/dL (1.3-4.6); Glomerular Filtration Rate 145.9 mL/min (90-130); Glucose 91 mg/dL (65-115); Osmolality Calculated 285 mOsm/kg (285-295); Potassium 3.1 mmol/L (3.5-5.1); Sodium 138 mmol/L (136-145); Total Bilirubin 0.8 mg/dL (0.15-1.2)
[2023-11-17 05:36] LABS: NT Pro B Type Natriuretic Pept < 36 pg/mL (0-125)
[2023-11-17 06:13] VITALS: BP 131/75; PULSE 61; RESP 19; TEMP 36.5; O2SAT 100
== END 2023-11-17 06:16 | disposition home or self-care (01) ==
PROVIDERS: Emergency Provider Internal Medicine; PCP Family Medicine
DX: J40 Bronchitis, not specified as acute or chronic (principal); F15.10 Other stimulant abuse, uncomplicated; Z72.0 Tobacco use
CPT/HCPCS: 71045; 80053; 80306; 81001; 81025; 83880; 85025; 87077; 87086; 87186; 93005; 96374; 99285; J2919

== ENCOUNTER 2023-12-27 19:53 | Emergency (ER) | payer BC, MEDICAID, SELFPAY ==
[2023-12-27 20:37] VITALS: BP 114/73; PULSE 91; RESP 17; TEMP 36.6; O2SAT 98; BMI 23.5
--- NOTE | 2023-12-27 21:33 | W.ED.SKABFB ---
HPI - Skin/Abscess/Foreign Bdy General: Chief complaint: Skin/Abscess/Foreign Body Stated complaint: Rt Side Spider Bite Time Seen by Provider: 12/27/23 21:29 Source: patient and family Mode of arrival: ambulatory Limitations: no limitations History of Present Illness: Patient reports she thinks she might of laid in a nest of brown recluse's and has bites all over her as well as her has a spot on his finger. She has lesions on her legs briefly her thighs and right arm. 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 Review of Systems General: Reports: 10 or more systems reviewed and unremarkable except in HPI and below PFSH ED PFSH: Medical History (Updated 12/27/23 @ 21:37 by Pete Alcantara MD) Psychiatric care STD (female) UTI (urinary tract infection) Headache Anemia Surgical History History of tubal ligation Family History Denies family history of Anesthesia complication Bleeding disorder Social History Smoking and tobacco/nicotine status: current every day tobacco/nicotine user Alcohol intake: current Physical Exam Const: COMMON NORMALS: no acute distress, average body habitus, patient oriented x3, healthy appearing, alert and well nourished GENERAL APPEARANCE: well kempt and well developed HENMT: COMMON NORMALS: normocephalic, atraumatic, external ears normal and moist oral mucous membranes HEAD & SCALP: normocephalic and atraumatic EXTERNAL EAR: Yes external ears normal Eye: COMMON NORMALS: Equal, round and reactive pupils present, EOMs intact bilaterally and conjunctivae normal CONJUNCTIVA: Yes conjunctivae normal PUPIL: Yes Equal, round and reactive pupils present Neck/C-Spine: COMMON NORMALS: full ROM, no lymphadenopathy and supple Chest: CHEST: Yes Symmetrical chest wall rise and No Surgical scars present (Chest) Resp: COMMON NORMALS: normal respiratory effort, No retractions, No use of accessory muscles and clear to auscultation bilaterally AUSCULTATION: clear to auscultation bilaterally Cardio: COMMON NORMALS: regular rate, regular rhythm, S1 normal heart sound present, S2 normal heart sound present, No gallops present (Cardio), No clicks present (Cardio), No murmurs present (Cardio) and No rub (Cardio) RATE: regular rate RHYTHM: regular rhythm HEART SOUNDS: S1 normal heart sound present, S2 normal heart sound present and no murmurs PERIPHERAL PULSES: other (Radial pulses 2+ and symmetric) GI: COMMON NORMALS: Soft to palpation, non-tender and no masses INSPECTION: No abdominal distension PALPATION: Yes Soft to palpation, No Guarding due to palpation present (GI) and No Rebound tenderness present : COMMON NORMALS: Yes no CVA tenderness BLADDER/KIDNEY EXAM: Yes no CVA tenderness Back/Pelvis: COMMON NORMALS: no CVA tenderness Extremity: COMMON NORMALS: normal to inspection, full ROM, capillary refill normal and no clubbing, cyanosis or edema Neuro: COMMON NORMALS: patient oriented x3 SENSORIUM/ORIENTATION: Yes alert Psych: APPEARANCE: Yes well kempt Skin: COMMON NORMALS: no rashes or lesions noted, no wounds, turgor normal and no jaundice NARRATIVE SKIN EXAM: Small lesions little more aggressive than typical folliculitis that appear to be skin popping lesions. I will have been scratched and are open. No visible abscesses no fluctuance. She reports several have expressed fluid when she messed with them. They are on her right arm bilateral thighs. As well as 1 on the right lower back. GENERAL SKIN EXAM: no rashes or lesions noted and turgor normal Course Vital Signs: Vital signs: Vital Signs Temperature 98 F 12/27/23 20:37 Pulse Rate 91 12/27/23 20:37 Respiratory Rate 17 12/27/23 20:37 Blood Pressure 114/73 12/27/23 20:37 Pulse Oximetry 98 12/27/23 20:37 Oxygen Delivery Me thod Room Air 12/27/23 20:37 MDM - Skin/Abscess/Foreign Bdy Medicial Decision Making Multiple areas of infected lesions from scratching a mess with areas of the body suspect possible skin popping areas. No murmur heard on auscultation. Patient be treated with doxycycline as she also reported a possible tick bite no visible target lesions. Differential Diagnosis Likely abscess of skin or subcutaneous tissue Medical Records I reviewed the patient's medical records. No radiology studies performed this visit Discharge Plan Discharge Patient Disposition: Home Clinical Impression: Cellulitis Qualifiers: Site of cellulitis: other site Qualified Code(s): L03.818 - Cellulitis of other sites Abscess of skin or subcutaneous tissue Qualifiers: Site of cutaneous abscess: other site Qualified Code(s): L02.818 - Cutaneous abscess of other sites Condition: Stable Prescriptions: New mupirocin 2 % ointment 1 applic topical TID Qty: 50 1RF Rx Instructions: Apply to affected areas 3 times a day for 7 days. doxycycline monohydrate 100 mg capsule 100 mg PO BID 10 Days Qty: 20 0RF Discontinued mupirocin 2 % ointment 1 applic topical BID 21 Days Qty: 22 0RF Rx Instructions: Apply to each nostril using Qtip twice a day sulfamethoxazole-trimethoprim [Bactrim DS] 800-160 mg tablet 1 tab PO BID 10 Days Qty: 20 0RF No Action ondansetron HCl 4 mg tablet 4 mg PO Q6H PRN (Reason: nausea and vomiting) Qty: 20 0RF diclofenac sodium 75 mg tablet,delayed release (DR/EC) 75 mg PO Q12H PRN (Reason: pain) Qty: 20 0RF Discharge Orders: Discharge ED (Routine); Ordered 12/27/23 Ordered By: Pete Alcantara Referrals: Annika Araujo DO [Primary Care Provider] - Discharge Diet: Usual diet Discharge Activity: Resume usual activity Patient Instructions: Cellulitis (ED), Abscess (ED) Coding Level of Care Code ED Honing Job Setter for Bala Jaffe
[2023-12-27] MEDS: doxycycline 100 mg Tablet PO (21:47)
[2023-12-27 21:52] VITALS: BP 122/67; PULSE 97; RESP 18; O2SAT 100
== END 2023-12-27 21:52 | disposition home or self-care (01) ==
PROVIDERS: Emergency Provider Emergency Medicine; PCP Family Medicine
DX: L03.113 Cellulitis of right upper limb (principal); L03.116 Cellulitis of left lower limb; L03.115 Cellulitis of right lower limb; L03.312 Cellulitis of back [any part except buttock and flank]; Z72.0 Tobacco use
CPT/HCPCS: 99283

== ENCOUNTER 2024-05-26 22:14 | Emergency (ER) | payer BC, MEDICAID, SELFPAY ==
[2024-05-26 22:25] VITALS: BP 117/76; PULSE 86; RESP 18; TEMP 36.7; O2SAT 99
[2024-05-26 23:24] VITALS: BP 117/69; PULSE 83; RESP 18; O2SAT 100
[2024-05-26 23:30] VITALS: BP 127/56; PULSE 76; RESP 18; O2SAT 96
[2024-05-26 23:42] LABS: HCG Qualitative Urine. Negative (Negative)
[2024-05-26 23:48] LABS: Basophils % 0.4 %; Eosinophils # 0.2 10^3/uL (0.0-0.8); Eosinophils % 2.9 %; Hematocrit 33.7 % (36-47); Lymphocytes # 2.3 10^3/uL (0.8-4.8); Lymphocytes % 34.5 %; Mean Corpuscular HGB Conc 34.1 g/dL (30-55); Mean Corpuscular Hemoglobin 31.4 pg (27-33); Mean Corpuscular Volume 92.1 fl (85-98); Mean Platelet Volume 10.4 fL (7.4-10.4); Monocytes # 0.6 10^3/uL (0.2-0.9); Monocytes % 8.5 %; Neutrophils # 3.62 10^3/uL (1.8-7.7); Neutrophils % 53.4 %; Nucleated Red Blood Cells % 0 %; Platelet Count 274 10^3/cmm (157-399); Red Blood Count 3.66 10^6/uL (3.85-5.65); Red Cell Distribution Width 12.7 % (12.1-15.1); White Blood Count 6.79 10^3/uL (3.29-11.43)
[2024-05-26 23:51] LABS: Bilirubin Urine Negative (Negative); Blood Urine Negative (Negative); Glucose Urine UA Negative (Normal); Ketones Urine Trace (Negative); Leukocyte Esterase Urine 2+ (Negative); Nitrate Urine Negative (Negative); Protein Urine Negative (Negative); Specific Gravity, Urine 1.026 (1.005-1.030); Urine Appearance Turbid (CLEAR); Urine Color Yellow (Yellow)
[2024-05-26 23:53] LABS: Add Urine Microscopic? YES; Bacteria Urine Trace /hpf; Hyaline Casts Urine 0.81 /lpf; RBC Urine 0-2 /hpf (0-2); Squamous Epithelial Cell Urine 0-5 /hpf (0-5); WBC Urine 21-50 /hpf (0-5)
--- NOTE | 2024-05-26 23:54 | ED_ITS ---
HPI - Abdominal Pain 2 General: Chief Complaint: Abdominal Pain Stated Complaint: SOB\Cough Time Seen by Provider: 05/26/24 23:00 Source: patient Mode of arrival: ambulatory Limitations: no limitations History of Present Illness: Patient is a 29-year-old female presenting to the emergency department complaining of right upper quadrant abdominal pain beginning tonight. Reports a history of gallbladder problems for the past 7 years. She states that when she has flareups she is treated with antibiotics, has not consulted a surgeon and does not have a primary care. She states the pain tonight began after eating spaghetti with red sauce. Is reporting associated nausea, stating the pain also radiates to her back. She also notes she has had a chronic cough, has pain every time she coughs. No bowel or bladder symptoms. Vital stable at this time, she does appear uncomfortable on exam. MD elicited complaint: abdominal pain Onset (ago): hour(s) Pain Consistency: constant Location: RUQ Severity: severe Pain scale (0-10): 8 Radiation: back Exacerbating factors: eating Relieving factors: nothing Associated Symptoms: Reports nausea; Denies bloating, change in stool character, chills, constipation, diarrhea, dysuria, fever(s), hematochezia and vomiting Related Data Date of Last Menstrual Period: 05/22/24 Previous Rx's Medication Instructions Recorded diclofenac sodium 75 mg 75 mg PO Q12H PRN pain #20 tabs 12/06/22 tablet,delayed release ondansetron HCl 4 mg tablet 4 mg PO Q6H PRN nausea and 12/06/22 vomiting #20 tabs mupirocin 2 % topical ointment 1 applic topical TID skin 12/27/23 infection #50 grams doxycycline hyclate 100 mg tablet 100 mg PO BID 10 days #20 tabs 05/27/24 hydrocodone 5 mg-acetaminophen 325 1 tab PO Q6H PRN pain #14 tabs 05/27/24 mg tablet ondansetron HCl 4 mg tablet 4 mg PO Q8H #30 tabs 05/27/24 Allergies Allergy/AdvReac Type Severity Reaction Status Date / Time latex Allergy Mild ALGY-Hives Verified 05/26/24 22:30 amoxicillin Allergy ALGY-Rash Verified 05/26/24 22:30 iodine Allergy ALGY-Rash Verified 05/26/24 22:30 Review of Systems 2 General: Reports: 10 or more systems reviewed and unremarkable except in HPI and below Const: Denies: fever(s), chills, change in appetite, change in weight or diaphoresis ENMT: Denies: throat pain or hoarseness Card: Denies: chest pain, palpitations or lightheadedness Resp: Reports: non-productive cough; Denies: dyspnea or wheezing GI: Reports: abdominal pain and nausea; Denies: vomiting, diarrhea, constipation, bloating, change in stool character or hematochezia : Denies: flank pain, difficulty voiding, dysuria, urinary frequency or urinary urgency Musc: Reports: back pain; Denies: neck pain Skin/Breast: Denies: rash or new lesions Neuro: Denies: headache(s) or dizziness PFSH ED 2 PFSH: Medical History Psychiatric care STD (female) UTI (urinary tract infection) Headache Anemia Surgical History History of tubal ligation Family History Denies family history of Anesthesia complication Bleeding disorder Social History Smoking and tobacco/nicotine status: current every day tobacco/nicotine user Alcohol intake: current Female Reproductive History: Date of last menstrual period: 05/22/24 G ravida: 6 Physical Exam 2 Const: COMMON NORMALS: patient oriented x3, no limitations, alert and well nourished GENERAL APPEARANCE: cooperative ORIENTATION/CONSCIOUSNESS: Yes awake OTHER: Appearing uncomfortable at time of examination HENMT: COMMON NORMALS: normocephalic, atraumatic, hearing grossly normal bilaterally, external ears normal, Normal external nose present, Normal nasal mucous membranes and turbinates present and moist oral mucous membranes HEAD & SCALP: normocephalic and atraumatic NOSE: Normal external nose present and Normal nasal mucous membranes and turbinates present EXTERNAL EAR: Yes external ears normal Eye: COMMON NORMALS: Equal, round and reactive pupils present, EOMs intact bilaterally, conjunctivae normal and normal visual malone by confrontation C ONJUNCTIVA: Yes conjunctivae normal PUPIL: Yes Equal, round and reactive pupils present Neck/C-Spine: COMMON NORMALS: full ROM, supple, no meningeal signs and no JVD Resp: COMMON NORMALS: normal respiratory effort, No retractions, No use of accessory muscles and clear to auscultation bilaterally AUSCULTATION: clear to auscultation bilaterally, no crackles, no rales, no rhonchi and no wheezes Cardio: COMMON NORMALS: no JVD, regular rate, regular rhythm, S1 normal heart sound present, S2 normal heart sound present, No gallops present (Cardio), No clicks present (Cardio), No murmurs present (Cardio), No rub (Cardio) and Peripheral pulses 2+ throughout RATE: regular rate RHYTHM: regular rhythm HEART SOUNDS: S1 normal heart sound present and S2 normal heart sound present PERIPHERAL PULSES: Peripheral pulses 2+ throughout GI: COMMON NORMALS: Normal to inspection, nondistended, normoactive bowel sounds present, Soft to palpation, No hepatosplenomegaly present and no masses AUSCULTATION: Yes normoactive bowel sounds PALPATION: Yes Soft to palpation, Yes Tenderness to palpation present (GI) Details: RUQ, No Guarding due to palpation present (GI), No Rigid due to palpation and Yes No hepatosplenomegaly present RECTAL EXAM: deferred : COMMON NORMALS: Yes no CVA tenderness BLADDER/KIDNEY EXAM: Yes no CVA tenderness Back/Pelvis: COMMON NORMALS: no CVA tenderness Extremity: COMMON NORMALS: normal to inspection and full ROM Neuro: COMMON NORMALS: patient oriented x3, moves all extremities, no focal motor deficits and no sensory deficits noted SENSORIUM/ORIENTATION: Yes alert MENINGEAL SIGNS: Yes no meningeal signs Psych: COMMON NORMALS: mental status grossly normal, cooperative and speech normal SPEECH: Yes normal speech Skin: COMMON NORMALS: no rashes or lesions noted GENERAL SKIN EXAM: no rashes or lesions noted Course 2 Vital Signs: Vital signs: Vital Signs Temperature 98.0 F 05/26/24 22:25 Pulse Rate 89 05/27/24 02:36 Respiratory Rate 18 05/27/24 01:00 Blood Pressure 123/52 05/27/24 02:36 Pulse Oximetry 99 05/27/24 02:36 Oxygen Delivery Me thod Room Air 05/27/24 01:00 MDM - Abdominal Pain Medical Decision Making Patient presented with acute onset right upper quadrant pain, states that she has had multiple years of repetitive flareups of her gallbladder and she normally gets treated with antibiotics and this cures it. States that she has no intent to get it removed anytime soon and she does not see a regular doctor. She does arrive appearing acutely in pain, her lab work unremarkable including negative white count, negative total bilirubin, and normal LFTs. Ultrasound did show signs of a acute cholecystitis, I spoke with Dr. Bryant who agrees this can treat as an outpatient and follow-up in the office. Patient will be treated with antibiotics and return with any new or worsening. She does report right a bit of relief after receiving pain and nausea meds here. Return precautions given. Case discussed with Dr. Lee. Lab Data 05/26/24 23:40 05/26/24 23:40 Labs/Radiology: Radiology Impressions Gallbladder Ultrasound 05/27/24 23:51 IMPRESSION: Findings can be seen in early acute cholecystitis. Laboratory Results WBC 6.79 10^3/uL (3.29-11.43) 05/26/24 23:40 RBC 3.66 10^6/uL (3.85-5.65) L 05/26/24 23:40 Hgb 11.50 g/dL (11.27-16.99) 05/26/24 23:40 Hct 33.7 % (36-47) L 05/26/24 23:40 MCV 92.1 fl (85-98) 05/26/24 23:40 MCH 31.4 pg (27-33) 05/26/24 23:40 MCHC 34.1 g/dL (30-55) 05/26/24 23:40 RDW 12.7 % (12.1-15.1) 05/26/24 23:40 Plt Count 274 10^3/cmm (157-399) 05/26/24 23:40 MPV 10.4 fL (7.4-10.4) 05/26/24 23:40 Neut % (Auto) 53.4 % 05/26/24 23:40 Lymph % (Auto) 34.5 % 05/26/24 23:40 Slope % (Auto) 8.5 % 05/26/24 23:40 Eos % (Auto) 2.9 % 05/26/24 23:40 Baso % (Auto) 0.4 % 05/26/24 23:40 Neut # (Auto) 3.62 10^3/uL (1.8-7.7) 05/26/24 23:40 Lymph # (Auto) 2.3 10^3/uL (0.8-4.8) 05/26/24 23:40 Slope # (Auto) 0.6 10^3/uL (0.2-0.9) 05/26/24 23:40 Eos # (Auto) 0.2 10^3/uL (0.0-0.8) 05/26/24 23:40 Baso # (Auto) 0.0 10^3/uL (0.0-0.1) 05/26/24 23:40 Nucleated RBC % (auto) 0 % 05/26/24 23:40 Nucleated RBCs # 0.0 /100WBC 05/26/24 23:40 Sodium 139 mmol/L (136-145) 05/26/24 23:40 Sodium Cancelled 05/26/24 23:40 Potassium 3.5 mmol/L (3.5-5.1) 05/26/24 23:40 Potassium Cancelled 05/26/24 23:40 Chloride 104 mmol/L (98-107) 05/26/24 23:40 Chloride Cancelled 05/26/24 23:40 Carbon Dioxide 26 mmol/L (22-29) 05/26/24 23:40 Carbon Dioxide Cancelled 05/26/24 23:40 Anion Gap 12.5 (5-19) 05/26/24 23:40 Anion Gap Cancelled 05/26/24 23:40 BUN 17 mg/dL (6-20) 05/26/24 23:40 BUN Cancelled 05/26/24 23:40 Creatinine 0.6 mg/dL (0.5-0.9) 05/26/24 23:40 Creatinine Cancelled 05/26/24 23:40 GFR Calculation 117.4 mL/min (90-130) 05/26/24 23:40 GFR Calculation Cancelled 05/26/24 23:40 Glucose 93 mg/dL (65-115) 05/26/24 23:40 Glucose Cancelled 05/26/24 23:40 Calculated Osmolality 289 mOsm/kg (285-295) 05/26/24 23:40 Calculated Osmolality Cancelled 05/26/24 23:40 Lactic Acid 0.9 mmol/L (0.5-2.2) 05/26/24 23:40 Calcium 8.8 mg/dL (8.5-10.5) 05/26/24 23:40 Calcium Cancelled 05/26/24 23:40 Total Bilirubin 0.2 mg/dL (0.15-1.2) 05/26/24 23:40 AST 23 U/L (0-32) 05/26/24 23:40 ALT 23 U/L (0-33) 05/26/24 23:40 Alkaline Phosphatase 63 U/L (35-105) 05/26/24 23:40 Total Protein 7.3 g/dL (6.6-8.7) 05/26/24 23:40 Albumin 4.4 g/dL (3.5-5.2) 05/26/24 23:40 Globulin 2.9 g/dL (1.3-4.6) 05/26/24 23:40 HCG, Qual Negative (Negative) 05/26/24 23:30 Urine Color Yellow (Yellow) 05/26/24 23:30 Urine Appearance Turbid (CLEAR) A 05/26/24 23:30 Urine pH 8.0 (5-7) A 05/26/24 23:30 Ur Specific [place] 1.026 (1.005-1.030) 05/26/24 23:30 Urine Protein Negative (Negative) 05/26/24 23:30 Urine Glucose (UA) Negative (Normal) 05/26/24 23:30 Urine Ketones Trace (Negative) 05/26/24 23:30 Urine Blood Negative (Negative) 05/26/24 23:30 Urine Nitrate Negative (Negative) 05/26/24 23:30 Urine Bilirubin Negative (Negative) 05/26/24 23:30 Urine Urobilinogen 1.0 mg/dL (Negative) 05/26/24 23:30 Ur Leukocyte Esterase 2+ (Negative) A 05/26/24 23:30 Urine RBC 0-2 /hpf (0-2) 05/26/24 23:30 Urine WBC 21-50 /hpf (0-5) H 05/26/24 23:30 Ur Squamous Epith Cells 0-5 /hpf (0-5) 05/26/24 23: Amorphous Sediment Not Reportable 05/26/24 23:30 Urine Bacteria Trace /hpf (NONE) 05/26/24 23:30 Hyaline Casts 0.81 /lpf 05/26/24 23:30 All radiology interpretation(s) finalized by discharge Discharge Plan Discharge Patient Disposition: Home Clinical Impression: Cholecystitis Condition: Stable Prescriptions: New doxycycline hyclate 100 mg tablet 100 mg PO BID 10 Days Qty: 20 0RF ondansetron HCl 4 mg tablet 4 mg PO Q8H Qty: 30 0RF hydrocodone-acetaminophen 5-325 mg tablet 1 tab PO Q6H PRN (Reason: pain) Qty: 14 0RF No Action mupirocin 2 % ointment 1 applic topical TID Qty: 50 1RF Rx Instructions: Apply to affected areas 3 times a day for 7 days. ondansetron HCl 4 mg tablet 4 mg PO Q6H PRN (Reason: nausea and vomiting) Qty: 20 0RF diclofenac sodium 75 mg tablet,delayed release (DR/EC) 75 mg PO Q12H PRN (Reason: pain) Qty: 20 0RF Discharge Orders: Discharge ED (Routine); Ordered 05/27/24 Ordered By: Frandy Lee Patient Instructions: Pain Management Activity Restrictions/Additional Instructions: Follow-up with general surgery. Take doxycycline as prescribed. Zofran for nausea. Drink plenty of fluids. Avoid any triggering foods. Return with any new or worsening. Coding Level of Care Code ED Drawer In for Bala Jaffe
[2024-05-26 23:55] LABS: Add Urine Culture? Yes
[2024-05-27] VITALS: BP 124/65; PULSE 84; RESP 18; O2SAT 98
[2024-05-27 00:06] LABS: Alanine Aminotransferase 23 U/L (0-33); Albumin Level 4.4 g/dL (3.5-5.2); Alkaline Phosphatase 63 U/L (35-105); Anion Gap 12.5 (5-19); Aspartate Amino Transferase 23 U/L (0-32); Blood Urea Nitrogen 17 mg/dL (6-20); Calcium 8.8 mg/dL (8.5-10.5); Carbon Dioxide 26 mmol/L (22-29); Chloride 104 mmol/L (98-107); Creatinine Clr Calc Pharmacy 142.8256; Globulin 2.9 g/dL (1.3-4.6); Glomerular Filtration Rate 117.4 mL/min (90-130); Glucose 93 mg/dL (65-115); Osmolality Calculated 289 mOsm/kg (285-295); Potassium 3.5 mmol/L (3.5-5.1); Sodium 139 mmol/L (136-145); Total Bilirubin 0.2 mg/dL (0.15-1.2); Total Protein 7.3 g/dL (6.6-8.7)
[2024-05-27 00:07] VITALS: RESP 18; O2SAT 100
[2024-05-27] MEDS: morphine 4 mg/mL SDV 1 mL IVP (00:07)
[2024-05-27] MEDS: ondansetron 2 mg/ML SDV 2 mL 4 MG IVP (00:09)
[2024-05-27 00:30] VITALS: BP 126/70; PULSE 72; RESP 18; O2SAT 100
[2024-05-27 01:00] VITALS: BP 116/65; PULSE 82; RESP 18; O2SAT 99
[2024-05-27] MEDS: doxycycline 100 mg Tablet PO (01:01)
[2024-05-27 01:04] LABS: Lactic Sepsis W/Reflex 0.9 mmol/L (0.5-2.2)
[2024-05-27] MEDS: HYDROcodone-acetaminophen 5-325 mg Tablet 2 TAB PO (02:15)
[2024-05-27 02:36] VITALS: BP 123/52; PULSE 89; O2SAT 99
--- NOTE | 2024-05-27 23:51 | USR_ITS ---
PROCEDURE INFORMATION: Exam: US Abdomen, Limited; Right Upper Quadrant Exam date and time: 05/27/2024 12:27 AM Age: 29 years old Clinical indication: Abdominal pain; Other: Ruq; Additional info: Ruq pain TECHNIQUE: Imaging protocol: Real time ultrasound of the abdomen with image documentation. Limited exam focused on the right upper quadrant. COMPARISON: US gall bladder [id number] 07/18/2018 2:07 PM FINDINGS: Liver: Normal. No masses. Gallbladder: Cholelithiasis measuring 2.3 cm. There is mild gallbladder wall thickening reaching 5 mm. Sonographic Parker's sign is positive.. Biliary ducts: Normal. No stones. No dilation. CBD measures 6 mm. Pancreas: Visualized pancreas is unremarkable. Right kidney: Normal. No mass. No hydronephrosis. The right kidney measures 11.1 x 5.8 x 4.5 cm with cortical thickness 1.1 cm. US/US gall bladder [id number] IMPRESSION: Findings can be seen in early acute cholecystitis.
== END 2024-05-27 02:18 | disposition home or self-care (01) ==
PROVIDERS: Emergency Provider Physician Assistant
DX: K81.9 Cholecystitis, unspecified (principal)
CPT/HCPCS: 76705; 80053; 81001; 81025; 83605; 85025; 87086; 96374; 96375; 99285; J2270; J2405

== ENCOUNTER 2024-06-15 06:57 | Day surgery (SDC) | payer BC, MEDICAID, SELFPAY ==
[2024-06-15] VITALS (11 sets, daily range): BP systolic 106–118; BP diastolic 50–67; PULSE 70–89; RESP 14–20; TEMP 36.7–37.2; O2SAT 95–100; BMI 26.7
--- NOTE | 2024-06-15 07:34 | P.ANESASSM_ITS ---
Pre-Anesthetic Assessment Height/Weight: Height 5 ft 7 in Weight 171 lb Preop Diagnosis: Cholecystitis Operation Date: 06/15/24 08:25 Proposed Procedures p Laparoscopic Cholecystectomy / 96217,K81.9(Not Applicable) - Santos Bryant MD Was Beta Pierce taken within 24 hours: N/A Was Clonidine taken within 24 hours: N/A Social Tobacco and No alcohol Exam alert, oriented x 3 and regular rate & rhythm Diminished breath sounds bilaterally Airway Submandibular: within normal limits Cervical ROM: within normal limits Mallampati: Class I Dentition: full Comments: Comments: Poor dentition, denies any loose Anesthetic Plan ASA status: 2 Anesthesia: General Other: No prior issues with anesthesia NPO since yesterday evening Current smoker, nicotine and marijuana. Patient states that she gets SOB with some exertion. Decreased breath sounds bilaterally. Will plan on preop DuoNeb Denies any cardiac issues Takes no regular medications at baseline METs greater than 4 Plan for general anesthesia Medications/Allergies Allergies Allergy/AdvReac Type Severity Reaction Status Date / Time latex Allergy Mild ALGY-Hives Verified 06/14/24 11:34 amoxicillin Allergy ALGY-Rash Verified 06/14/24 11:34 iodine Allergy ALGY-Rash Verified 06/14/24 11:34 [facility] Anesthesia Medical History Psychiatric care STD (female) UTI (urinary tract infection) Headache Anemia Surgical History History of tubal ligation Family History Denies family history of Anesthesia complication Bleeding disorder Social History Smoking and tobacco/nicotine status: current every day tobacco/nicotine user Alcohol intake: current Data Anesthesia Cardiac Studies: No Data to Display
[2024-06-15] MEDS: sodium chloride 0.9% 1,000 ML 30 ML IV (07:51)
[2024-06-15] MEDS: ipratropium 0.5 mg/2.5 mL Neb INHALATION (08:00)
[2024-06-15] MEDS: albuterol 2.5 mg/3 mL Neb INHALATION (08:00)
--- NOTE | 2024-06-15 08:22 | W.PM.OPSUD ---
Surgery/Procedure H&P Update DATE OF PROCEDURE: June 15, 2024 DATE H&P PERFORMED: 06/09/24 H&P UPDATE INFORMATION: I have reviewed H&P completed within last 30 days, I have examined patient prior to procedure and No changes to prior documentation PREOP DIAGNOSIS: Cholecystitis PLANNED PROCEDURE: Operation Date: 06/15/24 08:25 Proposed Procedures p Laparoscopic Cholecystectomy / 89480,K81.9(Not Applicable) - Santos Bryant MD
[2024-06-15] MEDS: ceFAZolin 2,000 mg SDV 2000 MG IVP (08:47)
[2024-06-15] MEDS: BUPivacaine 0.25% INJ 10 mL INJECTION (09:13)
[2024-06-15] MEDS: lidocaine-epi 1% 20 mL INJ 10 ML INJECTION (09:14)
[2024-06-15 10:06] LABS: OR HCG Qualitative Urine Negative (Negative)
--- NOTE | 2024-06-15 10:12 | P.OP_ITS ---
Operative Report Date of procedure: June 15, 2024 Pre-op diagnosis: Chronic cholecystitis Post-op diagnosis: same Post-op findings: Gallbladder filled with stones Procedure done: Laparoscopic cholecystectomy Implants: NA Specimens removed/disposition: Gallbladder sent to pathology Pathology: Gallbladder Surgeon: Santos Bryant MD Electrical Tryout Person: ALEXA Anesthesia: General Estimated blood loss (mL): 10 Complications: N/A Findings: Galbladder filled with stones Condition: stable Disposition: same day Brief History: 29-year-old female who presented with symptomatic cholelithiasis. Discussed risk and benefits and patient agreed to proceed with laparoscopic cholecystectomy possible open. Procedure: I discussed the risks and benefits of laparoscopic cholecystectomy, and obtained consent prior to proceeding to the operating room. SCDs were utilized. Prophylactic antibiotics were administered. General anesthesia was induced. The patient was placed supine, and she was prepped and draped in the usual sterile fashion. Insufflation to 15mmHg was achieved using a Veress needle at Mcdonnell's point. A 5mm optiview trocar was placed at the umbilicus under direct visualization. The left upper quadrant was inspected, and no injuries were noted. Two 5mm ports were placed in the right upper quadrant, and a 12mm working port was placed in the epigastrium. The gallbladder was then retracted cephalad through the lateral RUQ port, and the infundibulum grabbed through the medial RUQ port and retracted laterally. The gallbladder was inflammed and thus consistent with her diagnosis of chronic cholecystitis. I proceeded to score the peritoneum over the medial aspect of the gallbladder using a laparoscopic hook with electrocautery. Then the infundibulum was retracted medially in order to score the peritoneum over the lateral aspect of the galbladder. Using a combination of energy and blunt dissection with the [place] and a Kittner dissector, the cystic artery and cystic duct were dissected. I then proceeded to dissect the cystic plate in order to to achieve the critical view of safety. The cystic artery and the cystic duct were clipped three times (leaving two clips on the proximal end of both structures). I then proceeded to dissect the gallbladder off the liver using hook electrocautery. The specimen was placed in an endocatch bag and retrieved from the abdomen through the port on the epigastrium. I confirmed adequate hemostasis and the absence of any bile leaks. The gallbladder fossa was then cauterized again. Prior to ending the laparoscopic portion, I examined the rest of the abdomen and did not find any ab normalities or injuries. The abdomen was then desufflated, and the epigastric port site was irrigated copiously. Skin was closed using 4-0 monocryl and surgical glue. The patient woke up from anesthesia and transferred to PACU without any complications.
[2024-06-15] MEDS: fentaNYL 50 mcg/mL INJ 2mL IVP (10:14)
--- NOTE | 2024-06-15 11:10 | ANE.PACU2 ---
Inpatient post-anesthesia follow up: Airway intact: Yes Vital signs: Temperature 98.9 F Pulse Rate 81 Respiratory Rate 18 Blood Pressure 111/63 Pulse Oximetry 100 Oxygen Delivery Me thod Room Air Oxygen Flow Rate 8 Fraction of Inspir ed Oxygen Hydration adequate: Yes Nausea and vomiting: No Pain level: 1 Mental status: Baseline
== END 2024-06-15 11:05 | disposition home or self-care (01) ==
PROVIDERS: Visit Provider Student in an Organized Health Care Education/Training Program
PROC: 0FT44ZZ Resection of Gallbladder, Percutaneous Endoscopic Approach (ICD-10-PCS; CPT 47562; principal; 2024-06-15 08:15)
DX: K80.10 Calculus of gallbladder with chronic cholecystitis without obstruction (principal); F17.200 Nicotine dependence, unspecified, uncomplicated
CPT/HCPCS: 47562; 81025; 88304; 94640; J0690; J1100; J1171; J1885; J2250; J2405; J2704; J2710; J3010; J3490; J7030; J7613; J7644

== ENCOUNTER → 2024-12-21 10:15 | Outpatient (BNVA) | payer BC, MEDICAID, SELFPAY | PROVIDERS: PCP Family Medicine; Visit Provider Family Medicine | DX: Z32.00 Encounter for pregnancy test, result unknown (principal); N91.0 Primary amenorrhea; Z30.9 Encounter for contraceptive management, unspecified; J30.2 Other seasonal allergic rhinitis; F32.9 Major depressive disorder, single episode, unspecified; F41.1 Generalized anxiety disorder; R05.3 Chronic cough; F17.200 Nicotine dependence, unspecified, uncomplicated; Z71.6 Tobacco abuse counseling; K21.9 Gastro-esophageal reflux disease without esophagitis; J45.40 Moderate persistent asthma, uncomplicated | CPT/HCPCS: 81025; 84702 ==

== ENCOUNTER 2025-01-22 14:51 | Emergency (ER) | payer BC, MEDICAID, SELFPAY ==
[2025-01-22 15:00] VITALS: BP 122/74; PULSE 104; RESP 16; TEMP 36.7; O2SAT 97; BMI 26.7
--- NOTE | 2025-01-22 15:45 | ED_ITS ---
HPI - Skin/Abscess/Foreign Bdy General: Chief complaint: Skin/Abscess/Foreign Body Stated complaint: rash and spots on body, possible MRSA Time Seen by Provider: 01/22/25 15:39 History of Present Illness: 29-year-old female presents with concern s for MRSA. She has couple spots on her body that she feels is infected. She had a potential spider versus tick bite on her arm yesterday. She was seen yesterday and given a prescription for Doxy but reports she did not fill it because it was $25. She also got some prednisone which she did feel. She is also requesting mupirocin because she says has helped her in the past. Related Data Previous Rx's ?Medication ?Instructions ?Recorded albuterol sulfate 2.5 mg/3 mL 2.5 mg (3 mL) inhalation Q4H PRN 10/28/24 (0.083 %) solution for nebulization shortness of breat h or wheezing #90 mL budesonide-formoterol HFA 80 2 puff inhalation BID #10 .2 grams 12/01/24 mcg-4.5 mcg/actuation aerosol inhaler (Symbicort) levocetirizine 5 mg tablet (Xyzal) 5 mg PO DAILY #60 t abs 12/21/24 montelukast 10 mg tablet 10 mg PO DAILY #90 tabs 12/02 08/27 albuterol sulfate 90 mcg/actuation 2 puff inhalation Q 6H PRN 12/26/24 aerosol inhaler (Ventolin HFA) shortness of breath or wheezing #8.5 grams doxycycline monohydrate 100 mg 100 mg PO BID 10 days # 20 caps 01/21/25 capsule prednisone 20 mg tablet 40 mg (2 x 20 mg) PO DAILY 5 days 01/21/25 #10 tabs sertraline 25 mg tablet (Zoloft) 25 mg PO DAILY #60 ta bs 01/21/25 mupirocin 2 % topical ointment 1 applic topical TID #2 2 grams 01/22/25 (Centany) Allergies Allergy/AdvReac Type Severity Reaction Status Date / Time latex Allergy Mild ALGY-Hives Verified 01/21/25 12:43 amoxicillin Allergy ALGY-Rash Verified 01/21/25 12:43 iodine Allergy ALGY-Rash Verified 01/21/25 12:43 Review of Systems Skin/Breast: Reports: rash [facility] ED PFSH: Medical History (Updated 01/22/25 @ 15:48 by Klaus Castorena DO) Skin infection Moderate persistent asthma Tobacco use disorder Chronic cough History of self injurious behavior MDD (major depressive disorder) SEAN (generalized anxiety disorder) STD (female) UTI (urinary tract infection) Headache Anemia Surgical History Hx laparoscopic cholecystectomy 06/15/24 Dr Bryant History of tubal ligation Family History Grandmother Cancer Denies family history of Anesthesia complication Bleeding disorder Social History Smoking and tobacco/nicotine status: current every day tobacco/nicotine user Alcohol intake: current Alcohol intake frequency: few times a month Substance/Drug Use: current Physical Exam Const: COMMON NORMALS: no acute distress, patient oriented x3 and alert Resp: COMMON NORMALS: normal respiratory effort and clear to auscultation bilaterally AUSCULTATION: clear to auscultation bilaterally Cardio: COMMON NORMALS: regular rate and regular rhythm RATE: regular rate RHYTHM: regular rhythm Neuro: COMMON NORMALS: patient oriented x3, moves all extremities and no focal motor deficits SENSORIUM/ORIENTATION: Yes alert Psych: COMMON NORMALS: Normal thought process present, cooperative and normal affect THOUGHT PROCESS: Normal thought process present Skin: NARRATIVE SKIN EXAM: Few generalized spotted small abscesses/possible bites with infection. Course Vital Signs: Vital signs: Vital Signs Temperature 98.1 F 01/22/25 15:00 Pulse Rate 104 H 01/22/25 15:00 Respiratory Rate 16 01/22/25 15:00 Blood Pressure 122/74 01/22/25 15:00 Pulse Oximetry 97 01/22/25 15:00 Oxygen Delivery Me thod Room Air 01/22/25 15:00 MDM - Skin/Abscess/Foreign Bdy Medicial Decision Making Discussed with patient that she was given the proper antibiotic that would treat both MRSA and potential tick bite. That she needs to fill her doxycycline prescription from yesterday. I will provide her mupirocin prescription. She is stable and discharged home No radiology studies performed this visit Discharge Plan Discharge Patient Disposition: Home Clinical Impression: Insect bites, Abscess of skin or subcutaneous tissue Condition: Stable Prescriptions: New mupirocin [Centany] 2 % ointment 1 applic topical TID Qty: 22 0RF No Action budesonide-formoterol [Symbicort] 80-4.5 mcg/actuation HFA aerosol inhaler 2 puff inhalation BID Qty: 10.2 0RF albuterol sulfate 2.5 mg /3 mL (0.083 %) solution for nebulization 2.5 mg inhalation Q4H PRN (Reason: shortness of breath or wheezing) Qty: 90 0RF montelukast 10 mg tablet 10 mg PO DAILY Qty: 90 1RF levocetirizine [Xyzal] 5 mg tablet 5 mg PO DAILY Qty: 60 1RF doxycycline monohydrate 100 mg capsule 100 mg PO BID 10 Days Qty: 20 0RF sertraline [Zoloft] 25 mg tablet 25 mg PO DAILY Qty: 60 1RF prednisone 20 mg tablet 40 mg PO DAILY 5 Days Qty: 10 0RF albuterol sulfate [Ventolin HFA] 90 mcg/actuation HFA aerosol inhaler 2 puff inhalation Q6H PRN (Reason: shortness of breath or wheezing) Qty: 8.5 1RF Discharge Orders: Discharge ED (Routine); Ordered 01/22/25 Ordered By: Klaus Castorena Referrals: Mirza Muller MD [Primary Care Provider, Family Practice] Discharge Diet: Usual diet Discharge Activity: Resume usual activity Patient Instructions: MRSA (Methicillin-Resistant Staphylococcus Aureus) (ED), Opioid Safety, Pain Management Activity Restrictions/Additional Instructions: Please fill the doxycycline and start that as that is the antibiotic that is going to be most beneficial. You are also prescribed mupirocin cream. You may also use [id number] chlorhexidine wash twice daily. Follow-up with your primary care provider as needed. 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
== END 2025-01-22 16:05 | disposition home or self-care (01) ==
PROVIDERS: Emergency Provider Student in an Organized Health Care Education/Training Program; PCP Family Medicine
DX: L02.91 Cutaneous abscess, unspecified (principal); W57.XXXA Bitten or stung by nonvenomous insect and other nonvenomous arthropods, initial encounter; Z72.0 Tobacco use
CPT/HCPCS: 99283

== ENCOUNTER 2025-02-13 14:41 | Emergency (ER) | payer BC, MEDICAID, SELFPAY ==
[2025-02-13 14:45] VITALS: BP 113/81; PULSE 77; RESP 16; TEMP 36.7; O2SAT 97; BMI 26.9
--- OUTSIDE RECORDS SUMMARY | 2025-02-13 14:50 | XMS_ITS | Clinical Summary ---
Author Organization [facility] Address [address] [place] [place] [address] Care Team Providers Care Civil Transportation Engineer Name Role Phone Unavailable Primary Care Provider Unavailabl e Allergies Active Allergy Reactions Criticality Noted Date Comments Amoxicillin Unknown 09/03/2022 Iodinated Contrast Media Hives High 09/03/2022 Latex Unknown 09/03/2022 Medications ondansetron (ZOFRAN ODT) 4 mg Tablet, Rapid Dissolve Take 1 Tablet (4 mg) by mouth every 8 hours as needed for Nausea/Emesis . Dissolve tablet on top of tongue, then swallow with saliva. 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 Max Daily Amount: 4 Tablets 6 Tablet 09/03/2022 1:11 PM EXCEPTIONAL CHILDREN TEACHER 09/03/2022 Active Social History Tobacco Use Types Packs/Day Years Used Date Smoking Tobacco: Never Assessed Comments Unknown Sex and Gender Information Value Date Recorded Sex Assigned at Not on file Legal Sex Female 1:47 PM EXCEPTIONAL CHILDREN TEACHER Gender Identity Not on file Sexual Orientation Not on file Last Filed Vital Signs Vital Sign Reading Time Taken Comments Blood Pressure 112/62 09/03/2022 9:24 AM EXCEPTIONAL CHILDREN TEACHER Pulse 97 09/03/2022 1:05 AM EXCEPTIONAL CHILDREN TEACHER Temperature 36.4 C (97.6 F) 09/03/2022 9:24 AM EXCEPTIONAL CHILDREN TEACHER Respiratory Rate 20 09/03/2022 9:24 AM EXCEPTIONAL CHILDREN TEACHER Oxygen Saturation 100% 09/03/2022 9:24 AM EXCEPTIONAL CHILDREN TEACHER RA Inhaled Oxygen Concentration - - Weight 68 kg (150 lb) 09/03/2022 1:05 AM EXCEPTIONAL CHILDREN TEACHER Height 170.2 cm (5' 7 ) 09/03/2022 1:05 AM EXCEPTIONAL CHILDREN TEACHER Body Mass Index 23.49 09/03/2022 1:05 AM EXCEPTIONAL CHILDREN TEACHER Plan of Treatment Health Maintenance Due Date Last Done Comments DTAP/TDAP/TD VACCINES (1 - Tdap) 2013 HEPATITIS B VACCINES (1 of 3 - 19+ 3-dose series) 2013 HPV/Cotest (21-29) 2015 CERVICAL CANCER SCREENING 2024 HPV/Cotest (30-65) 2024 PAP SMEAR 2024 INFLUENZA VACCINE (#1) 2025 HPV VACCINES Aged Out No longer eligi ble based on patient's age to complete this topic Insurance [address] [address] [facility] MEDICAID [address] [address] RX INFOCROSSING Medicaid
--- NOTE | 2025-02-13 15:03 | ED_ITS ---
HPI - Dental/Oral 2 General: Chief complaint: Dental/Oral Stated complaint: Tooth infection Time Seen by Provider: 02/13/25 14:44 Source: patient Mode of arrival: ambulatory Limitations: no limitations History of Present Illness: 29-year-old female who presents to the E D for dental pain, onset 1.5 weeks ago. She reports that she went to a walk-in clinic 3 days ago and was prescribed Clindamycin 150 mg 3 times daily for left lower molar dental infection. She states that the swelling has significantly improved but she feels that she is beginning to develop an abscess to her right upper molars. She reports of pain in both areas but denies any bleeding or pus drainage. She also denies any recent fevers. She was concerned with the development of pain to her right side which prompted her to come to the ED today. No other complaints at this time. She is able to eat, drink, swallow normally. No issues controlling her secretions. MD Complaint: tooth pain Onset (ago): week(s) (1.5) Duration: constant Severity: moderate Relieving factors: other (clindamycin 150 mg TID) Context: history of dental caries and poor dental care Associated symptoms: Denies ear or mastoid pain, fever(s) or sore throat Treatment prior to arrival: none Related Data Previous Rx's ?Medication ?Instructions ?Recorded albuterol sulfate 2.5 mg/3 mL 2.5 mg (3 mL) inhalation Q4H PRN 10/28/24 (0.083 %) solution for nebulization shortness of breat h or wheezing #90 mL montelukast 10 mg tablet 10 mg PO DAILY #90 tabs 12/02 08/27 albuterol sulfate 90 mcg/actuation 2 puff inhalation Q 6H PRN 12/26/24 aerosol inhaler (Ventolin HFA) shortness of breath or wheezing #8.5 grams budesonide-formoterol HFA 80 2 puff inhalation BID #10 .2 grams 02/10/25 mcg-4.5 mcg/actuation aerosol inhaler (Symbicort) clindamycin HCl 150 mg capsule 450 mg (3 x 150 mg) PO TID 10 days 02/10/25 (Cleocin HCl) #90 caps sertraline 25 mg tablet (Zoloft) 25 mg PO DAILY #60 ta bs 07/11/25 ibuprofen 800 mg tablet 800 mg PO Q8H PRN pain #20 t abs 02/13/25 ondansetron 4 mg disintegrating 4 mg PO Q8H PRN nausea and 02/13/25 tablet vomiting #14 tabs Allergies Allergy/AdvReac Type Severity Reaction Status Date / Time latex Allergy Mild ALGY-Hives Verified 02/10/25 11:08 amoxicillin Allergy ALGY-Rash Verified 02/10/25 11:08 iodine Allergy ALGY-Rash Verified 02/10/25 11:08 Review of Systems 2 Const: Denies: fever(s), chills, body aches, fatigue or malaise ENMT: Reports: dental pain; Denies: ear or mastoid pain, nasal discharge, nasal congestion or sinus pain Card: Denies: chest pain Resp: Denies: dyspnea GI: Reports: nausea; Denies: vomiting Musc: Denies: neck pain Neuro: Denies: headache(s) or dizziness PFSH ED 2 PFSH: Medical History Skin infection Moderate persistent asthma Tobacco use disorder Chronic cough History of self injurious behavior MDD (major depressive disorder) SEAN (generalized anxiety disorder) STD (female) UTI (urinary tract infection) Headache Anemia Surgical History Hx laparoscopic cholecystectomy 06/15/24 Dr Bryant History of tubal ligation Family History Grandmother Cancer Denies family history of Anesthesia complication Bleeding disorder Social History Smoking and tobacco/nicotine status: current every day tobacco/nicotine user Alcohol intake: current Alcohol intake frequency: few times a month Substance/Drug Use: current Physical Exam 2 Const: COMMON NORMALS: no acute distress, average body habitus, no limitations, healthy appearing, alert and well nourished GENERAL APPEARANCE: cooperative HENMT: FACE & SINUS: normal facial exam; no erythema, no edema and no fluctuance MOUTH: Normal oral and palatal mucosa present, lip normal, tongue normal and Normal salivary glands and ducts present TEETH & GINGIVA: Yes caries and Yes poor dentition TEETH & GINGIVA IMAGES: 1. decay/caries; mild gingival edema-no obvious drainable abscess collection THROAT: posterior oropharynx normal and tonsils normal Neck/C-Spine: COMMON NORMALS: no lymphadenopathy GENERAL: No anterior neck swelling and No submandibular swelling Resp: COMMON NORMALS: normal respiratory effort Neuro: SENSORIUM/ORIENTATION: Yes alert Course 2 Vital Signs: Vital signs: Vital Signs Temperature 98.1 F 02/13/25 14:45 Pulse Rate 77 02/13/25 14:45 Respiratory Rate 16 02/13/25 14:45 Blood Pressure 113/81 02/13/25 14:45 Pulse Oximetry 97 02/13/25 14:45 Oxygen Delivery Me thod Room Air 02/13/25 14:45 MDM - Dental/Oral Medical Decision Making Patient's bottle of Clindamycin states to take 150 mg 3 times daily however looking at previous walk-in documentation-it was written for 450 mg 3 times daily so recommend she begin taking this as prescribed. Recommend she follow-up with a dentist as soon as possible. No evidence for deep space infection, Seun's angina, or other emergent process at this time. Return to ED precautions discussed. Differential Diagnosis Likely gingival abscess, dental caries, toothache and dental abscess Medical Records I reviewed the patient's medical records. No radiology studies performed this visit Discharge Plan Discharge Patient Disposition: Home Clinical Impression: Dental infection Condition: Stable Prescriptions: New ibuprofen 800 mg tablet 800 mg PO Q8H PRN (Reason: pain) Qty: 20 0RF ondansetron 4 mg tablet,disintegrating 4 mg PO Q8H PRN (Reason: nausea and vomiting) Qty: 14 0RF No Action albuterol sulfate 2.5 mg /3 mL (0.083 %) solution for nebulization 2.5 mg inhalation Q4H PRN (Reason: shortness of breath or wheezing) Qty: 90 0RF montelukast 10 mg tablet 10 mg PO DAILY Qty: 90 1RF clindamycin HCl [Cleocin HCl] 150 mg capsule 450 mg PO TID 10 Days Qty: 90 0RF albuterol sulfate [Ventolin HFA] 90 mcg/actuation HFA aerosol inhaler 2 puff inhalation Q6H PRN (Reason: shortness of breath or wheezing) Qty: 8.5 1RF budesonide-formoterol [Symbicort] 80-4.5 mcg/actuation HFA aerosol inhaler 2 puff inhalation BID Qty: 10.2 0RF sertraline [Zoloft] 25 mg tablet 25 mg PO DAILY Qty: 60 1RF Discharge Orders: Discharge ED (Routine); Ordered 02/13/25 Ordered By: Raegan Clifton Referrals: Mirza Muller MD [Primary Care Provider, [facility]] Patient Instructions: Dental Caries (Cavities), Dental Abscess (ED), Patient Portal & [place] Instructions Activity Restrictions/Additional Instructions: After reviewing your walk-in appointment documentation, provider had written the Clindamycin to be taken at a dose of 450mg (3 tablets) 3 times a day. Please start taking this dosage to help with your dental infection. Go ahead and contact your dentist to schedule a follow-up appointment. You may return to the emergency department or seek medical re-evaluation for any worsening concerns you may have. 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
[2025-02-13 15:22] VITALS: BP 110/76; PULSE 76; RESP 16; O2SAT 99
== END 2025-02-13 15:23 | disposition home or self-care (01) ==
PROVIDERS: Emergency Provider Physician Assistant; PCP Family Medicine
DX: K04.7 Periapical abscess without sinus (principal); Z72.0 Tobacco use
CPT/HCPCS: 99283

== ENCOUNTER 2025-03-22 12:00 | Outpatient (CLI) | payer BC, MEDICAID, SELFPAY ==
[2025-03-22 12:23] LABS: Hematocrit 35.5 % (36-47); Hemoglobin 12.30 g/dL (11.27-16.99); Mean Corpuscular HGB Conc 34.6 g/dL (30-55); Mean Corpuscular Hemoglobin 32.0 pg (27-33); Mean Corpuscular Volume 92.4 fl (85-98); Nucleated Red Blood Cells % 0 %; Platelet Count 261 10^3/cmm (157-399); Red Blood Count 3.84 10^6/uL (3.85-5.65); White Blood Count 6.60 10^3/uL (3.29-11.43)
[2025-03-22 12:25] LABS: LAB Peripheral Smear Sent for Review
[2025-03-22 12:36] LABS: INR 1.03 (0.8-1.2); Partial Thromboplastin Time 29.1 SECONDS (23.9-36.7); Prothrombin Time 14.20 SECONDS (12.1-14.9)
== END 2025-03-22 12:01 | disposition home or self-care (01) ==
PROVIDERS: PCP Family Medicine; Visit Provider Family Medicine
DX: T14.8XXA Other injury of unspecified body region, initial encounter (principal); X58.XXXA Exposure to other specified factors, initial encounter
CPT/HCPCS: 36415; 80503; 85025; 85610; 85730

== ENCOUNTER 2025-03-23 08:58 | Outpatient (CLI) | payer BC, MEDICAID, SELFPAY ==
--- NOTE | 2025-03-23 09:00 | USCV_ITS ---
Lexi Richmond Age: 29 Gender: F : 1995 Exam Date: 03/23/2025 09:11 Ordering Phys: Mirza Muller MD Technologist: Exam Location: [facility] – [place] Indication: bilat leg pain and vericose veins PROCEDURES: The venous duplex Doppler examination of both lower extremities was performed in the standard fashion. The following venous structures were evaluated: common femoral vein, profunda vein, proximal portion of the greater saphenous vein, superficial femoral vein, and the popliteal vein. In addition, the posterior tibial and peroneal trunk were evaluated. FINDINGS: Normal 2-D Doppler and augmentation and compressibility throughout the lower extremity venous structures. Additional imaging through the proximal calf veins also reveals no thrombus. Limited evaluation of the greater saphenous vein is patent with no thrombus. CONCLUSIONS No DVT bilateral lower extremities. Dr. Alexandra Duong DO (Electronically Signed) Final Date: 23 March 2025 11:23 S
== END 2025-03-23 08:59 | disposition home or self-care (01) ==
LOC: RAD 09:00
PROVIDERS: PCP Family Medicine; Visit Provider Family Medicine
DX: I83.11 Varicose veins of right lower extremity with inflammation (principal); I83.12 Varicose veins of left lower extremity with inflammation
CPT/HCPCS: 93970